=== PATIENT | female | born 1955 | race Caucasian/White ===

== ENCOUNTER → 2016-08-22 | Outpatient (CLI) | payer OTHER ==
[~2016-08-22] MED LIST: ALBINS/ INH; AMT50 PO; BACL10TA PO; CLB/200 PO; CRS/10 PO; DULO60CA44 PO; ERGO500037 PO; FURO40TA3 PO; INSDGI SC; IPRA1AER2 INH; LEVO50TA PO; LISI-794 PO; LORA-741 PO; METH-307 PO; NRN/300 PO; NVLGI SC; NXM/40 PO; OMEGCAP2 PO; OXYC20TA50 PO; SYMIN160 INH; ZOLP12.5 PO
[2016-08-22 16:57] LABS: THYROID STIMULATING HORMONE 6.31 uIu/ml (0.300-4.500)
== END | disposition home or self-care (01) ==
LOC: C.LAB1850 15:24
PROVIDERS: ATTEND Internal Medicine Endocrinology, Diabetes & Metabolism
DX: E05.00 Thyrotoxicosis with diffuse goiter without thyrotoxic crisis or storm (principal); E55.9 Vitamin D deficiency, unspecified; K43.2 Incisional hernia without obstruction or gangrene

== ENCOUNTER → 2016-09-16 | Outpatient (CLI) | payer OTHER ==
[2016-09-16 16:58] LABS: THYROID STIMULATING HORMONE 0.036 uIu/ml (0.300-4.500)
== END | disposition home or self-care (01) ==
LOC: C.LAB1850 15:24
PROVIDERS: ATTEND Internal Medicine Endocrinology, Diabetes & Metabolism
DX: E05.90 Thyrotoxicosis, unspecified without thyrotoxic crisis or storm (principal)

== ENCOUNTER → 2016-11-21 | Outpatient (CLI) | payer OTHER ==
[2016-11-21 17:18] LABS: BASO % 0.5 %; BASO ABS # 0.05 K/uL (0-0.2); COMPLETE YES; EOS % 0.6 %; HEMATOCRIT 35.8 % (37-47); IG% 0.4 %; LYMPH % 25.1 %; LYMPH ABS # 2.61 K/uL (1.2-3.4); MEAN CELL VOLUME 74.1 fL (80-100); MEAN CORPUSCULAR HEMOGLOBIN 23.6 pg (25-34); MEAN CORPUSCULAR HGB CONC 31.8 g/dl (32-36); MEAN PLATELET VOLUME 9.4 fL (7.4-10.4); MONO % 3.8 %; NEUT % 69.6 %; PLATELET COUNT 311 K/uL (130-400); RED BLOOD COUNT 4.83 M/uL (4.2-5.4); WHITE BLOOD COUNT 10.39 K/uL (4.8-10.8)
[2016-11-21 17:46] LABS: ALT/SGPT 12 U/L (12-78); AST/SGOT 4 U/L (15-37); BLOOD UREA NITROGEN 12 mg/dl (7-18); BUN/CREATININE RATIO 13.4 (10-20); CARBON DIOXIDE 29 mmol/L (21-32); CHLORIDE 95 mmol/L (98-107); CREATININE 0.92 mg/dl (0.60-1.20); GLUCOSE 299 mg/dl (70-99); MAGNESIUM 1.9 mg/dl (1.8-2.4); POTASSIUM 4.8 mmol/L (3.5-5.1); SODIUM 131 mmol/L (136-145)
[2016-11-21 17:57] LABS: ALB/GLOB RATIO 0.7 (0.9-2); ALKALINE PHOSPHATASE 149 U/L (45-117)
[2016-11-23 17:10] LABS: ALBUMIN 3.7 G/DL (3.8-4.8); TOTAL PROTEIN 7.1 G/DL (6.2-8.3)
--- NOTE | 2016-11-25 08:29 | CODING QUERY MEDICAL NECESSITY ---
SUPPORTING DIAGNOSIS NEEDED A supporting diagnosis is required for the test/procedure performed on this patient in order for us to be reimbursed by the patient's insurance. Please provide a supporting diagnosis for the following test/procedure listed below next to the test name along with your signature. *If there is no additional diagnosis for this patient that would support the following test/procedure please document that below next to the test/procedure. Test(s)/Procedure(s) that require a supporting diagnosis: * VITAMIN D 25-HYDROXY DIAGNOSIS: * VITAMIN B-12 LEVEL DIAGNOSIS: * DOS: 11/21/16 Provider Signature: Date: Thank you Regi [facility] Information Management Once completed, please kindly fax back to [phone] For questions please call [phone]
== END | disposition home or self-care (01) ==
LOC: C.LAB1850 16:02
PROVIDERS: ATTEND Psychiatry & Neurology Neurology
DX: E05.90 Thyrotoxicosis, unspecified without thyrotoxic crisis or storm (principal); R25.3 Fasciculation; G62.9 Polyneuropathy, unspecified

== ENCOUNTER → 2017-01-02 | Outpatient (CLI) | payer OTHER | END | disposition home or self-care (01) | LOC: C.LABSPEC 17:04 | PROVIDERS: ATTEND Orthopaedic Surgery | DX: G56.01 Carpal tunnel syndrome, right upper limb (principal) ==

== ENCOUNTER → 2017-02-06 | Outpatient (CLI) | payer OTHER ==
[2017-02-06 16:21] LABS: CHOLESTEROL 169 mg/dl (0-200); CHOLESTEROL/HDL RATIO 3.4; HDL CHOLESTEROL 49 mg/dl; THYROID STIMULATING HORMONE 0.055 uIu/ml (0.300-4.500); TRIGLYCERIDES 169 mg/dl (0-150); VERY LOW DENSITY LIPOPROT CALC 34 mg/dl
[2017-02-06 16:44] LABS: RATIO 317.9 mcg/mg (0-30.0)
[2017-02-07 06:18] LABS: ESTIMATED AVERAGE GLUCOSE 226 mg/dl; HA1C FLAG Normal (Normal)
== END | disposition home or self-care (01) ==
LOC: C.LAB1850 14:16
PROVIDERS: ATTEND Internal Medicine Endocrinology, Diabetes & Metabolism
DX: E05.00 Thyrotoxicosis with diffuse goiter without thyrotoxic crisis or storm (principal); Z86.39 Personal history of other endocrine, nutritional and metabolic disease; E78.5 Hyperlipidemia, unspecified; E55.9 Vitamin D deficiency, unspecified; R80.9 Proteinuria, unspecified; E10.21 Type 1 diabetes mellitus with diabetic nephropathy; E10.9 Type 1 diabetes mellitus without complications; E05.90 Thyrotoxicosis, unspecified without thyrotoxic crisis or storm; G56.03 Carpal tunnel syndrome, bilateral upper limbs

== ENCOUNTER → 2017-02-08 | Outpatient (CLI) | payer OTHER ==
--- NOTE | 2017-03-01 08:23 | CODING QUERY NO DIAGNOSIS ---
TREATMENT RENDERED WITHOUT A DIAGNOSIS To promote full compliance with coding requirements relating to patient care, physician participation is requested in all cases of pantry cook uncertainty. Please assist us with providing a diagnosis/symptom for the test(s) below: A diagnosis/symptom was not documented on your Order. A valid diagnosis/symptom is required to bill all insurances. Please remember that we are unable to code a diagnosis of rule out, probable, possible, questionable, or suspected. Tests that require a diagnosis: * AERO/ANAE CULTURE & GRAM STAIN DIAGNOSIS: Provider Signature: Date: Thank you Missy [place] [employer] Information Management Once completed, please kindly fax back to [phone] For questions please call [phone]
== END | disposition home or self-care (01) ==
LOC: C.LABSPEC 16:52
PROVIDERS: ATTEND Orthopaedic Surgery
DX: L08.9 Local infection of the skin and subcutaneous tissue, unspecified (principal)

== ENCOUNTER → 2017-04-03 | Outpatient (CLI) | payer OTHER ==
[2017-04-03 17:37] LABS: THYROID STIMULATING HORMONE 35.5 uIu/ml (0.300-4.500)
== END | disposition home or self-care (01) ==
LOC: C.LAB1850 15:37
PROVIDERS: ATTEND Internal Medicine Endocrinology, Diabetes & Metabolism
DX: E05.90 Thyrotoxicosis, unspecified without thyrotoxic crisis or storm (principal)

== ENCOUNTER → 2017-04-14 | Outpatient (CLI) | payer OTHER ==
[2017-04-14 17:09] LABS: THYROID STIMULATING HORMONE 0.195 uIu/ml (0.300-4.500)
== END | disposition home or self-care (01) ==
LOC: C.LAB1850 14:15
PROVIDERS: ATTEND Internal Medicine Endocrinology, Diabetes & Metabolism
DX: E05.00 Thyrotoxicosis with diffuse goiter without thyrotoxic crisis or storm (principal); E06.3 Autoimmune thyroiditis

== ENCOUNTER → 2017-05-24 | Outpatient (CLI) | payer OTHER ==
[2017-05-24 18:30] LABS: ALT/SGPT 13 U/L (12-78); AST/SGOT 7 U/L (15-37); BLOOD UREA NITROGEN 17 mg/dl (7-18); BUN/CREATININE RATIO 19.5 (10-20); CARBON DIOXIDE 24 mmol/L (21-32); CHLORIDE 98 mmol/L (98-107); CHOLESTEROL 142 mg/dl (0-200); CREATININE 0.88 mg/dl (0.60-1.20); GLUCOSE 219 mg/dl (70-99); PHOSPHORUS 4.4 mg/dl (2.5-4.9); POTASSIUM 4.5 mmol/L (3.5-5.1); SODIUM 132 mmol/L (136-145); TRIGLYCERIDES 189 mg/dl (0-150); URIC ACID 5.9 mg/dl (2.6-7.2); VERY LOW DENSITY LIPOPROT CALC 38 mg/dl
[2017-05-24 18:39] LABS: ALB/GLOB RATIO 0.8 (0.9-2); ALKALINE PHOSPHATASE 127 U/L (45-117); CHOLESTEROL/HDL RATIO 2.4; HDL CHOLESTEROL 58 mg/dl; LDL CHOLESTEROL CALCULATED 46 mg/dl
== END | disposition home or self-care (01) ==
LOC: C.LAB1850 15:15
PROVIDERS: ATTEND Internal Medicine Endocrinology, Diabetes & Metabolism
DX: M62.831 Muscle spasm of calf (principal)

== ENCOUNTER → 2017-09-01 | Outpatient (CLI) | payer OTHER ==
[2017-09-02 06:55] LABS: HEMOGLOBIN A1C 8.8 % (4.5-5.6)
== END | disposition home or self-care (01) ==
LOC: C.LAB1850 14:37
PROVIDERS: ATTEND Internal Medicine Endocrinology, Diabetes & Metabolism
DX: E55.9 Vitamin D deficiency, unspecified (principal); E10.8 Type 1 diabetes mellitus with unspecified complications

== ENCOUNTER → 2017-11-27 | Outpatient (CLI) | payer OTHER ==
[2017-11-28 05:58] LABS: HEMOGLOBIN A1C 8.7 % (4.5-5.6)
== END | disposition home or self-care (01) ==
LOC: C.LAB1850 13:17
PROVIDERS: ATTEND Internal Medicine Endocrinology, Diabetes & Metabolism
DX: E05.90 Thyrotoxicosis, unspecified without thyrotoxic crisis or storm (principal); E10.9 Type 1 diabetes mellitus without complications; E55.9 Vitamin D deficiency, unspecified

== ENCOUNTER → 2017-11-28 | Outpatient (CLI) | payer OTHER ==
--- NOTE | 2017-11-29 06:27 | SPLIT NIGHT TECHNICIAN REPORT ---
[facility] Split Night Polysomnogram - Fishing Manager Report Study date: 11/28/2017 Referring Physician: Dr. Juli Ingram M.D. Name: LEORA TRACY Fishing Manager: Shraddha Lynn [facility]. Date of : 1955 Height: 62 years, Height 5' 2.25" Sex: Female Weight: 179 lbs Age: 62 Neck Circum: 16.5 in BMI: Medications: 32.47 HYDROCHLOROTHIAZIDE 12.5 MG, OXYCODONE 20 MG, DIAZEPAM 5 MG, PANTOPRAZOLE 40 MG, IPRTROPIUM-ALBUTEROL 20-100 MCG/ACT, SYMBICORT 160-4.5 MCG/ACT, FUROSEMIDE 40 MG, AMITRIPTYLINE 50 MG, GABAPENTIN 300 AND 100 MG, DULOXETINE 60 MG, NOVOLOG 70-30 UNIT/ML, PROVENTIL 2.5 MG/3 ML, LISINOPIRL 20 MG, CLOBETASOL PROPIONATE 0.05% OINT, CRESTOR 10 MG, VIT D 10162 UNIT, LIDEX 0.05% EX CREAM, ASPIRIN 81 MG Patient History 62 yr-old female here for a baseline/modified split study (CPAP to be introduced if AHI exceeds 15). She has a history of COPD, anxiety, HTN, snoring, witnessed apneas, and daytime sleepiness. Her [place] scale is 18. The test was started on room air. ETCO2 testing is included in this study. Room 3 Parameters Monitored NPSG: E1-M2, E2-M1, Fp1-M2, Fp2-M1, F3-M2, F4-M2, F4-M1, C3-M2, C4-M2, C4-M1, O1-M2, O2-M2, O2-M1, T3-M2, T4-M1, P3-M2, P4-M1, CHIN1, CHIN2, HR, EKG, Legs, PFLOW, SNOR, FLOW, CFLOW, Tidal Volume, THOR, ABDO, SpO2, PLTH, CPRESS, ETCO2 Wave, ETCO2, pH SLEEP SUMMARY DATA DIAGNOSTIC TREATMENT Lights Out: 10:53:38 PM 1:48:38 AM Lights On: 1:24:38 AM 5:29:08 AM Total Recording Time (TRT): 151.0 min. 220.5 min. Total Sleep Time (TST): 125.5 min. 217.0 min. NREM Time: 125.5 min. 177.5 min. REM Time: 0.0 min. 39.5 min. Sleep Period Time (SPT): 135.0 min. 219.5 min. Sleep Efficiency (SE): 83 % 98 % Sleep Latency: 16.0 min. 1.0 min. Arousal Index: 12.4 2.8 PAP Treatment Levels: 4, 6, 7, 9, 10 * Optimal Pressure(s) SLEEP STAGING DATA DIAGNOSTIC TREATMENT Duration (min) TST % Duration (min) TST % Stage Wake: 25.5 min. -- 3.5 min. -- WASO: 9.5 min. -- 2.5 min. -- NREM: 125.5 min. 100 % 177.5 min. 82 % Stage N1: 13.5 min. 11 % 6.0 min. 3 % Stage N2: 108.0 min. 86 % 131.0 min. 60 % Stage N3: 4.0 min. 3 % 40.5 min. 19 % REM: 0.0 min. 0 % 39.5 min. 18 % POSITIONAL DATA Event Count Index Event Count Index Supine: 55 26 49 13.5 Supine NREM: 55 26.3 37 12.5 Supine REM: N/A N/A 12 18 Non-Supine: N/A N/A N/A N/A Non-Supine NREM: N/A N/A N/A N/A Non-Supine REM: N/A N/A N/A N/A AROUSAL SUMMARY DATA: Event Count Index Event Count Index Apnea Arousals: 0 0.5 0 4.1 Hypopnea Arousals: 5 2.4 1 0.3 Snore Arousals: 2 1.0 0 0.0 PLM Arousals: 0 0.0 1 0.3 Non-Specific Arousals: 20 9.6 7 1.9 Total Arousals: 26 12.4 10 2.8 MYOCLONUS (PLM) Event Count Index Event Count Index PLM: 0 0.0 61 16.9 PLM AROUSAL: 0 0.0 1 0.3 PLM W/O AROUSAL 0 0.0 60 16.6 PLM W/RESP EVENT 0 0.0 0 0.0 MYOCLONUS (PLM) Event Count Index Event Count Index LM: 0 4.8 33 9.1 LM AROUSAL: 0 0.0 1 0.3 LM W/O AROUSAL LM W/RESP EVENT LM NON SPECIFIC 9 4.3 87 24.1 HEART RATE DATA DIAGNOSTIC TREATMENT Sleep (bpm): 86 80 REM (bpm): N/A 87 NREM (bpm): 83 86 Tachycardia Count: 0 0 Tachycardia Duration: 0.00 0 Bradycardia Count: 0 0 Bradycardia Duration: 0.00 0 DIAGNOSTIC PORTION TREATMENT PORTION RESPIRATORY DATA Event Count Index Event Count Index AHI: -- 26.3 -- 13.5 RDI: -- 26.3 -- 14 Obstructive Apnea: 1 0.5 11 3.0 Central Apnea: 0 0.0 4 1.1 Mixed Apnea: 0 0.0 0 0.0 Hypopnea: 54 25.8 34 9.4 RERA: 0 0.0 0 0.0 Total Apneas: 1 0.5 15 4.1 RESPIRATORY DATA REM NREM SLEEP REM NREM SLEEP Supine Position: Obstructive Apneas: N/A 1 1 0 11 11 Central Apneas: N/A 0 0 0 4 4 Mixed Apneas: N/A 0 0 0 0 0 Hypopneas: N/A 54 54 12 22 34 RERA N/A 0 0 0 0 0 Total Supine Events: N/A 55 55 12 37 49 Supine AHI: N/A 26.3 26 18 12.5 13.5 Supine RDI: N/A 26.3 26.3 18.2 12.5 13.5 REM NREM SLEEP REM NREM SLEEP Non-Supine Position: Obstructive Apneas: N/A N/A N/A N/A N/A N/A Central Apneas: N/A N/A N/A N/A N/A N/A Mixed Apneas: N/A N/A N/A N/A N/A N/A Hypopneas: N/A N/A N/A N/A N/A N/A RERA N/A N/A N/A N/A N/A N/A Total Supine Events: N/A N/A N/A N/A N/A N/A Supine AHI: N/A N/A N/A N/A N/A N/A Supine RDI: N/A N/A N/A N/A N/A N/A OXYGEN DESTAURATION DATA: Event Count Index Event Count Index REM Desaturations: N/A N/A 16 24.3 NREM Desaturations: 52 24.9 49 16.6 SNORE DATA DIAGNOSTIC TREATMENT Snore Time: 2.2 1:49:38 AM Snore TST%: 1 0 Snore Arousal Count: 2 0 Snore Arousal Index: 1.0 0.0 Desaturation Event Summary: Minimum %SpO2 Event Count Mean/Min/Max Duration(sec.) Desaturation Index % Time In Bed > 90 8 19.6 / 13.3 / 48.8 201.8 0.6 86 - 90 84 21.2 / 6.8 / 58.8 32.1 42.3 81 - 85 72 20.7 / 6.0 / 50.8 23.4 49.8 76 - 80 6 16.5 / 7.0 / 38.8 19.5 5.0 71 - 75 0 N/A 0.0 1.9 66 - 70 0 N/A 0.0 0.4 61 - 65 0 N/A 0.0 0.0 56 - 60 0 N/A 0.0 0.0 51 - 55 0 N/A 0.0 0.0 < 50 0 N/A 0.0 0.0 OXYGEN SATURATION DATA DIAGNOSTIC TREATMENT SpO2 Mean Sleep: 83 % 86 % SpO2 Mean REM: N/A % 87 % SpO2 Mean NREM: 83 % 86 % SpO2 Minimum Sleep: 67 % 72 % SpO2 Minimum REM: N/A % 80 % SpO2 Minimum NREM: 67 % 72 % Time Below 90% (TST): 124.8 207.7 Time Below 88% (TST): 122.8 153.7 Total REM NREM Awake <50% 0.0 min. 0.0 min. 0.0 min. 0.0 min. 51 - 60% 0.0 min. 0.0 min. 0.0 min. 0.0 min. 61 - 70% 1.3 min. 0.0 min. 1.0 min. 0.3 min. 71 - 80% 25.6 min. 0.1 min. 23.0 min. 2.6 min. 81 - 90% 341.1 min. 39.0 min. 276.8 min. 25.4 min. 91 - 100% 2.4 min. 0.4 min. 1.6 min. 0.3 min. Average 85 87 84 84 Minimum SpO2 67 80 67 68 Desaturation Event Index 20.8 24.3 20.0 26.9 # Desat. Events below 89% 129 16 101 12 Time(%) with Saturation below 89% 91.8 8.8 75.6 7.5 Time(min.) with Saturation below 89% 340.0 32.5 279.9 27.7 Recording Fishing Manager Comments: Ms. Tracy slept in the supine position propped up on four pillows. No cardiac arrhythmias were noted. PLMs were noted. No bruxism noted. Snoring was noted and scored as a 2 on a scale of 1 through 5. (0=no snoring, 5=snoring loud enough to be heard through a closed door or down the [address] way). At 1:40 am, met specific Split-Night criteria during the diagnostic portion of this study. CPAP was initiated at +4 CMH2O and up-titrated to a level of +10 CMH2O, Cflex 3. An AirFit F10 full face mask size medium from [employer] was used during titration. She awoke to use the restroom one time during the night. Ms. Tracy stated that she slept ok. The final report will be interpreted and signed by a sleep physician. The completed physician report will then be placed in the patient medical record. Therapy Event: Therapy (cm H20) 0 4 6 7 9 10 Total Time at Pressure (min.) 151.0 22.9 32.2 65.2 74.4 25.8 TST at Pressure (min.) 125.5 21.9 32.2 63.7 73.4 25.8 # Periods 1 1 1 1 1 1 Sleep Onset (min.) 16.0 1.0 0.0 0.0 0.0 0.0 REM Onset (min.) N/A N/A N/A 25.4 0.0 N/A Sleep Efficiency % 83 95 100 97 98 100 Wakefulness (%) 16.9 4.4 0.0 2.3 1.3 0.0 Wakefulness (min.) 25.5 1.0 0.0 1.5 1.0 0.0 NREM 1 (%) 8.9 17.4 0.0 1.5 0.7 1.9 NREM 1 (min.) 13.5 4.0 0.0 1.0 0.5 0.5 NREM 2 (%) 71.5 78.2 100.0 39.7 58.4 44.7 NREM 2 (min.) 108.0 17.9 32.2 25.9 43.5 11.5 NREM 3 (%) 2.6 0.0 0.0 3.1 33.2 53.4 NREM 3 (min.) 4.0 0.0 0.0 2.0 24.7 13.8 REM (%) 0.0 0.0 0.0 53.4 6.3 0.0 REM (min.) 0.0 0.0 0.0 34.8 4.7 0.0 # Arousals 26 0 0 8 1 1 Arousal Index 12.4 0.0 0.0 7.5 0.8 2.3 # Snore 81 2 0 9 13 5 Snore Index 38.7 5.5 0.0 8.5 10.6 11.6 AHI 26.3 5.5 5.6 22.6 15.5 2.3 AHI Supine 26.3 5.5 5.6 22.6 15.5 2.3 AHI Non-Supine N/A N/A N/A N/A N/A N/A NREM AHI 26.3 5.5 5.6 25.0 16.6 2.3 REM AHI N/A N/A N/A 20.7 0.0 N/A RDI 26.3 5.5 5.6 22.6 15.5 2.3 # Obstructive 1 0 1 5 4 1 # Central Ap 0 0 0 0 4 0 # Mixed 0 0 0 0 0 0 # Hypopneas 54 2 2 19 11 0 RERAS 0 0 0 0 0 0 Total Respiratory Events 55 2 3 24 19 1 Time Below SpO2 89.00% (min.) 123.9 21.9 32.2 58.5 53.5 22.2 Mean NREM SpO2 (%) 83 83 83 85 88 87 Mean REM SpO2 (%) N/A N/A N/A 87 89 N/A Mean Sleep SpO2 (%) 83 83 83 86 88 87 Min NREM SpO2 (%) 67 75 72 76 76 84 Min REM SpO2 (%) N/A N/A N/A 80 86 N/A Position Supine (min.) 125.5 21.9 32.2 63.7 73.4 25.8 Position Non-supine (min.) 0.0 0.0 0.0 0.0 0.0 0.0 LM Index Sleep 4.8 19.1 0.0 44.3 28.6 11.6 LM Index NREM 4.8 19.1 0.0 35.4 19.2 11.6 LM Index REM N/A N/A N/A 51.7 166.3 N/A Mean Heart Rate (bpm) 86 82 79 82 78 77 Min Heart Rate (bpm) 81 76 76 78 74 74 CPAP REPORT Therapy Detail Time / Page # Comment CPAP 4 cm H2O Full Face Mask Flex Pressure Relief Humidifier on 1:45:24 AM / pg. 572 SHE HAS OVER 2 HOURS OF SLEEP AND HER AHI IS ABOVE 15 (PER THE DOCTOR'S ORDER) CPAP 6 cm H2O Full Face Mask Flex Pressure Relief Humidifier on 2:11:34 AM / pg. 624 INCREASED FOR HYPOPNEAS CPAP 7 cm H2O Full Face Mask Flex Pressure Relief Humidifier on 2:43:47 AM / pg. 689 INCREASED FOR SOME HYPOPNEAS AND AN APNEA CPAP 9 cm H2O Full Face Mask Flex Pressure Relief Humidifier on 3:48:57 AM / pg. 819 INCREASED FOR HYPOPNEAS IN REM CPAP 10 cm H2O Full Face Mask Flex Pressure Relief Humidifier on 5:03:23 AM / pg. 968 INCREASED FOR APNEAS AND HYPOPNEAS
--- NOTE | 2017-12-01 07:57 | POLYSOMNOGRAPH REPORT ---
CLINICAL DATA: A 62-year-old female with BMI of 32.[address] Ingram for a modified split night study with a history of snoring, witnessed apnea along with daytime sleepiness. Her [place] sleepiness score was 18/24. This was a split night study. SLEEP ARCHITECTURE: For the diagnostic portion of the study, sleep period time was 135 minutes. Total sleep time was 125.5 minutes, all non-REM sleep. Sleep latency was 16 minutes. Sleep efficiency was 83%. Sleep consisted of stage N1 11%, stage N2 86%, and stage N3 3%. For the treatment portion of the study, sleep period time was 219.5 minutes. Total sleep time was 217 minutes divided between 177.5 minutes of non-REM sleep and 39.5 minutes of REM sleep. Sleep latency was 1 minute. Sleep efficiency was 98%. Sleep consisted of stage N1 3%, stage N2 60%, stage N3 19%, and REM 18%. AROUSAL DATA: Prior to treatment, 26 arousals were recorded for an index of 12.4 per hour. During treatment, 10 arousals were recorded for an index of 2.8 per hour. PLM DATA: Prior to treatment, 9 limb movements during sleep were noted for an index of 4.3 per hour. During treatment, 87 limb movements during sleep were noted for an index of 24.1 per hour. EKG: Heart rates ranged from 80-87 beats per minute. No arrhythmias were noted. RESPIRATORY DATA: Moderate sleep apnea was documented prior to treatment with a diagnostic AHI of 26.3. There was 1 obstructive apneic episode and 54 hypopneic episodes. The average AHI during treatment was 13.5. There were 11 obstructive and 4 central apneic episodes. There were 34 hypopneic episodes. OXIMETRY DATA: Nocturnal hypoxemia was seen prior to treatment. Oxygen kurt was 67% during non-REM sleep prior to treatment. Mean saturation with treatment was 86%. CALENDER TENDER'S COMMENTS AND TREATMENT SUMMARY: Patient slept supine propped up on 4 pillows. Snoring was mild, rated 2 on a scale of 1-5. At 1:40 a.m., she met split night criteria. She used a [employer] AirFit F10 full face mask, size medium. She was titrated up to 10 cm of water pressure, C-Flex setting 3. At her final pressure setting, she had an AHI of 2.3 with improvement in her hypoxemia. IMPRESSION: Moderate sleep apnea/hypopnea with the diagnostic AHI of 26.3 with nocturnal hypoxemia corrected with CPAP 10 cm water pressure with the above-noted interface. She did have improvement in her oxygenation by the end of the study. RECOMMENDATIONS: Patient should be started on CPAP at 10 cm water pressure with a C-Flex 3 with an AirFit F10 full face mask, size medium from [employer]. She should be seen back in followup within 90 days to document efficiency and compliance. After she has been on CPAP and stable, overnight pulse oximetry could be considered to monitor her O2 saturations throughout a total of 8-hour period with CPAP. Clinical correlation is needed. REYNA
== END | disposition home or self-care (01) ==
LOC: C.NEUR 21:00
PROVIDERS: ATTEND Internal Medicine
DX: G47.33 Obstructive sleep apnea (adult) (pediatric) (principal)

== ENCOUNTER → 2017-12-01 | Outpatient (CLI) | payer OTHER ==
--- NOTE | 2017-12-01 17:37 | DIAGNOSTIC IMAGING REPORT ---
CHEST 2 VIEWS ROUTINE CLINICAL HISTORY: 62 years-old Female presenting with J42 Chronic [id number]. TECHNIQUE: PA and lateral views of the chest were obtained. COMPARISON: 11/19/2014. FINDINGS: The patient is BEATRICE rotated. Atherosclerosis of the aortic arch. Cardiac silhouette mildly enlarged, unchanged. Mild pulmonary vascular prominence. No focal opacity. Blunting of the right costophrenic angle. No large effusion or pneumothorax. Degenerative changes of the thoracic spine. IMPRESSION: 1. Cardiomegaly with mild pulmonary vascular prominence suggesting mild volume overload. Otherwise no acute cardiopulmonary disease. Electronically signed by: Alex Arriaza M.D. 12/01/2017 5:36 PM Dictated Date/Time: 12/01/2017 5:35 PM
== END | disposition home or self-care (01) ==
LOC: C.RAD1850 16:41
PROVIDERS: ATTEND Internal Medicine Pulmonary Disease
DX: J42 Unspecified chronic bronchitis (principal); I51.7 Cardiomegaly

== ENCOUNTER → 2018-03-09 | Outpatient (CLI) | payer OTHER | END | disposition home or self-care (01) | LOC: C.LAB1850 11:53 | PROVIDERS: ATTEND Internal Medicine Endocrinology, Diabetes & Metabolism | DX: E05.90 Thyrotoxicosis, unspecified without thyrotoxic crisis or storm (principal) ==

== ENCOUNTER 2018-04-05 14:56 | Emergency (ER) | payer OTHER ==
[~2018-04-05] VITALS: Ht 160 cm; Wt 80.7 kg
[2018-04-05 15:02] VITALS: TEMP 37; Ht 160 cm; Wt 80.7 kg
--- NOTE | 2018-04-05 16:00 | DIAGNOSTIC IMAGING REPORT ---
CT OF THE HEAD WITHOUT CONTRAST CLINICAL HISTORY: Fall with head injury. COMPARISON STUDY: No previous studies for comparison. CT DOSE: 537.48 mGy.cm TECHNIQUE: Helical axial images of the head were obtained without IV contrast. Automated exposure control was utilized for the study. A dose lowering technique was utilized adhering to the principles of ALARA. FINDINGS: No acute intracranial hemorrhage, midline shift or mass effect is present. 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 White matter hypodensity suggests small vessel disease. There are no findings to suggest acute dural sinus thrombosis or acute territorial infarct. There is no calvarial fracture. A large nasal septal defect is present. Mastoid air cells are clear. IMPRESSION: 1. No acute intracranial findings. 2. No calvarial fracture. 3. 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 4. Large nasal septal defect. Electronically signed by: Junior Andres M.D. 04/05/2018 3:59 PM Dictated Date/Time: 04/05/2018 3:55 PM
--- NOTE | 2018-04-05 16:11 | EMERGENCY ROOM VISIT NOTE ---
ED Visit Note First contact with patient: 15:13 I have seen and examined this patient with Melba Paez and generally agree with the treatment plan as discussed.
--- NOTE | 2018-04-05 16:14 | EMERGENCY ROOM VISIT NOTE ---
History First contact with patient: 15:13 Chief Complaint: HEAD INJURY (MINOR) Stated Complaint: HEAD INJURY, REFERRED BY DR. CAMPUZANO History of Present Illness The patient is a 63 year old female who presents to the Emergency Room with complaints of head injury. The patient states that 2 days ago she got her foot caught in the handle of a bag and fell to the side striking her head on the edge of a door jam and then fell the other directed and striking the opposite side of her head on the floor. The patient denies any loss of consciousness. The patient states she has some blurred vision in the left eye which is increased. She also has some ringing in the left the patient has an ongoing history of dizziness for 1 year. She states that she falls frequently but this was different since she got her foot caught and the handle of the bag. She was seen by her family doctor yesterday and she was told to come over to get a CAT scan at that time but on the way they had problems with their vehicle and she was unable to get here. Her family doctor called her this morning to see why she did not come to the emergency room yesterday and she told them why and she was instructed to come today. The patient denies any chest pain or shortness of breath. The patient is on blood pressure medicine. She is not on any blood thinners. Review of Systems 10 system review was performed and was negative unless stated otherwise history of present illness. Past Medical/Surgical History Medical Problems: (1) Asthma, Unspecified (2) Cardiac Dysrhythmia Nos (3) Esophageal Reflux (4) Lumbar Disc Displacement (5) Pleural Effusion Nos Family History Cancer Diabetes mellitus Heart disease Hypertension Social History Smoking Status: Current Every Day Smoker Drug Use: none Marital Status: Housing Status: lives with family Occupation Status: retired Current/Historical Medications Scheduled Amitriptyline Hcl (Elavil), 50 MG PO HS Baclofen (Lioresal), 10 MG PO TID Budesonide/Formoterol Fumarate (Symbicort 160/4.5 Inhaler), 2 PUFFS INH BID Celecoxib (CeleBREX), 200 MG PO BID Duloxetine Hcl (Cymbalta), 120 MG PO QAM Ergocalciferol (Vitamin D 82606 Unit), 50,000 UNIT PO WK Esomeprazole Magnesium (Nexium), 40 MG PO BID Insulin Aspart (Novolog), UNITS SC BID Insulin Glargine (Lantus), 30 UNITS SC HS Ipratropium-Albuterol (Combivent Respimat), 1 PUFF INH QID Levothyroxine Sodium (Synthroid), 50 MCG PO 6XWK Lisinopril (Zestril), 40 MG PO QAM Methocarbamol (Robaxin), 750 MG PO TID [place]-3 Fatty Acids (Fish Oil), 1 CAP PO HS Oxycodone Hcl (Oxycontin), 20 MG PO Q6H Rosuvastatin Calcium (Crestor), 10 MG PO HS Scheduled PRN Albuterol Sulf (Proventil 0.083% 2.5MG/3ML), 2.5 MG INH Q4-6HRS PRN for Cough/ Wheeze Furosemide (Lasix), 40 MG PO DAILY PRN for Edema Gabapentin (Neurontin), 300-600 MG PO HS PRN for Pain Lorazepam (Ativan), 0.5 MG PO TID PRN for Panic Attack Zolpidem Tartrate (Ambien Cr), 12.5 MG PO HS PRN for Sleep Physical Exam Vital Signs Date Time Temp Pulse Resp B/P (MAP) Pulse Ox O2 Delivery O2 Flow Rate FiO2 1618 15:02 37.0 86 17 92/56 94 Room Air Physical Exam GENERAL: 63-year-old white female appears in no acute distress. MENTAL Status: Alert and oriented 3. HEAD: Atraumatic, nontender to palpation. EYES: PERRLA. EOMs intact. Funduscopic exam unremarkable. EARS: Canals clear. TMs without fluid level noted. NECK: Supple, no lymphadenopathy noted. No carotid bruits noted. LUNGS: Clear auscultation without wheezes rales or rhonchi. CARDIAC: Regular rate and rhythm with 2 out of 6 murmur noted at the left sternal border.. Pulses is full and equal throughout. NEURO:Cranial nerves two through 12 intact. Cerebellar function intact with [id number]. Fine motor intact with alternating finger motions. Medical Decision & Procedures ER Provider Diagnostic Interpretation: CT OF THE HEAD WITHOUT CONTRAST CLINICAL HISTORY: Fall with head injury. COMPARISON STUDY: No previous studies for comparison. CT DOSE: 537.48 mGy.cm TECHNIQUE: Helical axial images of the head were obtained without IV contrast. Automated exposure control was utilized for the study. A dose lowering technique was utilized adhering to the principles of ALARA. FINDINGS: No acute intracranial hemorrhage, midline shift or mass effect is present. 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 White matter hypodensity suggests small vessel disease. There are no findings to suggest acute dural sinus thrombosis or acute territorial infarct. There is no calvarial fracture. A large nasal septal defect is present. Mastoid air cells are clear. IMPRESSION: 1. No acute intracranial findings. 2. No calvarial fracture. 3. 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 4. Large nasal septal defect. Electronically signed by: Junior Andres M.D. 04/05/2018 3:59 PM ED Course The patient was evaluated. Patient's EMR medication list were reviewed. CT the head was ordered interpreted by the radiologist as above without any acute findings. Patient was informed of all findings on the CAT scan. I did inform the patient that there was some old infarcts noted on her CAT scan. The patient was independently evaluated by Dr. Myers who agrees with treatment plan. The patient was discharged home in stable condition. Medical Decision Differential diagnosis include intracranial bleed, subarachnoid hemorrhage, head contusion [place] Drug Monitoring Program Search Results: patient reviewed within database Head Trauma GCS Score: 15 Medication Reconcilliation Current Medication List: was personally reviewed by me Blood Pressure Screening Patient's blood pressure: Low blood pressure Blood pressure disposition: Referred to PCP Impression Primary Impression: Closed head injury Additional Impression: Nonspecific low blood pressure reading Departure Information Dispostion Home / Self-Care Condition GOOD Referrals Alex Campuzano M.D. (PCP) Forms HOME CARE DOCUMENTATION FORM, IMPORTANT VISIT INFORMATION Patient Instructions ED Head Injury Closed, My [facility] Additional Instructions Tylenol as needed for headache or pain. Monitor your blood pressure readings at home and document date and time. Follow-up with your PCP in 1 week for reevaluation or earlier if symptoms worsen. Problem Qualifiers Primary Impression: Closed head injury Encounter type: initial encounter Qualified Codes: S09.90XA - Unspecified injury of head, initial encounter
[2018-04-05 16:29] VITALS: BP 98/61; PULSE 59; O2SAT 94
== END 2018-04-05 16:20 | disposition home or self-care (01) ==
LOC: C.EDB 14:57 → C.EDD 16:20
DX: S09.8XXA Other specified injuries of head, initial encounter (principal); W18.09XA Striking against other object with subsequent fall, initial encounter; J45.909 Unspecified asthma, uncomplicated; I49.9 Cardiac arrhythmia, unspecified; K21.9 Gastro-esophageal reflux disease without esophagitis; M51.26 Other intervertebral disc displacement, lumbar region; Z79.4 Long term (current) use of insulin; Z79.899 Other long term (current) drug therapy; F17.200 Nicotine dependence, unspecified, uncomplicated

== ENCOUNTER → 2018-04-06 | Outpatient (CLI) | payer OTHER ==
[2018-04-06 15:39] LABS: ALBUMIN 3.3 gm/dl (3.4-5.0); ALKALINE PHOSPHATASE 148 U/L (45-117); ALT/SGPT 13 U/L (12-78); AST/SGOT 10 U/L (15-37); BLOOD UREA NITROGEN 25 mg/dl (7-18); CALCIUM 8.4 mg/dl (8.5-10.1); CARBON DIOXIDE 26 mmol/L (21-32); CHOLESTEROL 116 mg/dl (0-200); CREATININE 1.33 mg/dl (0.60-1.20); GLUCOSE 131 mg/dl (70-99); LDL CHOLESTEROL CALCULATED 37 mg/dl; SODIUM 126 mmol/L (136-145); TOTAL PROTEIN 7.5 gm/dl (6.4-8.2)
== END | disposition home or self-care (01) ==
LOC: C.LAB1850 14:11
PROVIDERS: ATTEND Internal Medicine Endocrinology, Diabetes & Metabolism
DX: E55.9 Vitamin D deficiency, unspecified (principal); R80.9 Proteinuria, unspecified; E05.90 Thyrotoxicosis, unspecified without thyrotoxic crisis or storm; E10.8 Type 1 diabetes mellitus with unspecified complications

== ENCOUNTER 2020-09-19 16:43 | Inpatient (IN) ==
--- NOTE | 2020-09-19 16:52 | Emergency Department Note ---
Impression & Plan CHF (congestive heart failure), Acute on chronic respiratory failure with hypoxemia ED Provider Note NAME: LEORA WARE AGE: 65 SEX: F : 1955 ARRIVES VIA: Ambulance INFORMANT: Patient, ED PROVIDER(S): Ricardo Hunter MD Chief Complaint: Lower extremity weakness HPI: Patient does present for lower extremity weakness since the patient has had any recurrence of falls and the patient states she has had decreased ambulation over the last 3 to 4 days. When EMS did arrive the patient was not wearing her oxygen and satting in the 60s. The patient does have chronic shortness of breath and does continue to use tobacco but is noncompliant with her CPAP as well as oxygen use at home. The patient has follow-up with Dr. Boredn with pulmonology. Patient follows Dr. Meza for primary care. The patient denies any chest pains. Patient does not complain of any lower extremity pain. Patient denies fevers or chills. The patient symptoms have gotten progressively worse and are not improving per patient. They have been constant. ROS: See HPI for pertinent positives and negatives. A total of 10 systems were reviewed and otherwise negative. Past medical history: See below Surgical history: See below Social history: See below Physical Exam: GENERAL: Chronically ill in appearance, wearing glasses and a mask. EYE EXAM: Normal conjunctiva. PERRL, no anisocoria and EOM's grossly intact w/o pain. NECK: Supple, no nuchal rigidity, no adenopathy, non-tender. No signs of meningismus. LUNGS: Manage breath sounds bilateral bases with crackles. Normal chest wall mechanics. HEART: NSR, no MRG. ABDOMEN: Abdomen soft, non-tender, normo-active bowel sounds, no masses, no rebound or guarding. BACK: No CVA TTP. SKIN: Skin thickening nowhere over the distal portions of the lower extremities. UPPER EXTREMITIES: Upper extremities are grossly normal. LOWER EXTREMITIES: Grossly normal, 2+ bilateral lower extremity edema. NEURO EXAM: A&O x3, cranial nerves II-XII grossly intact, normal speech, moves all 4 extremities on command w/o issue. Differential diagnoses: Infection, dehydration, metabolic abnormality, hypo/hyperglycemia, electrolyte disturbance, anemia, hypoxia, cardiac sources, intracerebral event, toxicologic, neurologic, as well as other pathologies. Course: Patient was seen and evaluated the bedside. Full history physical exam was performed. EKG: Indication: Shortness of breath Normal sinus rhythm, rate of 91, normal intervals, right axis deviation, T wave inversion in V2. T wave inversion in V2 is new from comparison EKG October 22, 2018. Imaging Studies: Radiology results as stated below per my review in the radiologist's interpretation: XR chest 1V portable CLINICAL HISTORY: weakness COMPARISON STUDY: 10/22/2018 FINDINGS: The heart remains enlarged. There is continued evidence of pulmonary vascular congestion. There are mild airspace opacities likely representing focal edema although an infectious/inflammatory processes could appear similar[ IMPRESSION: Cardiomegaly and radiographic evidence of congestive failure/fluid overload. Minor airspace opacities most pronounced at the lung bases likely representing focal edema although an infectious/inflammatory process could appear similar ACT 112: Negative or not required by law. Electronically signed by: Abdoulaye Madrid M.D. 09/19/2020 6:31 PM Dictated: 09/19/201829 Transcribed: 09/19/201829 Cardiac monitoring: An order was placed for continuous cardiac monitoring. The monitor shows a rate of 88 with sinus rhythm. MDM: Patient did present with concern for shortness of breath lower extremity weakness. Patient was placed on BiPAP after being in about evaluated given her noncompliance as well as her increasing oxygen requirement. The patient does not have any sensory deficits back pain and has no lower extremity deficits on exam. This likely due to chronic noncompliance and potentially inability to tolerate physical activity as she is not using her oxygen or CPAP at home. The patient may have a concomitant element of heart failure given elevated BNP diminished breath sounds and pulmonary edema seen on chest x-ray. Patient's blood work showed a normal white count H&H and platelet count. VBG does show chronic CO2 retention with virtually normal VBG pH is 7.3. Bicarb is 34. Magnesium and calcium are low 1.4 and 8.4. TSH is normal. Covid and flu negative. RSV negative. Lasix ordered. EKG does show new T wave inversion. This could be related to demand a troponin was added. Troponin undetectable. Patient never complained of any chest pains. I did speak to the on-call hospitalist Dr. Troy and the patient was admitted to the medicine service. Critical Care: I have personally spent 52 minutes of critical care time in direct management of this patient. This includes bedside care, interpretation of diagnostic studies, and testing, discussion with consultants, patient, and family members, and other require inpatient management activities. This 52 minutes is in excess of all separately billable procedures. Past Med/Surg History Medical History Abdominal pain Bowel perforation Chronic bronchitis with acute exacerbation Diabetes Encounter for incision and drainage procedure Esophageal reflux Incarcerated ventral hernia Infected hernioplasty mesh Infected prosthetic mesh of abdominal wall Perforated nasal septum Personal history of nicotine dependence Pleural effusion Pulmonary emphysema Restless legs syndrome Restrictive lung disease Tinea pedis Vitamin D deficiency Surgical History H/O umbilical hernia repair H/O: hysterectomy History of carpal tunnel release S/P anal fissurectomy Family History Father Hypertension Diabetes Other Gallbladder disease Heart disease Lung disease Social History Smoking Status: Current every day smoker Tobacco Type: Cigarettes packs per day: 1; Years Smoked: 45; Cigarettes Per Day: 20; Do You Dip or Chew Tobacco: No; Tobacco Cessation Education Requested by Patient: No Hx Alcohol Use: No Hx Substance Use: No Preferred Language: Maltese Communication Ability: Effective Resizer Operator Required: No Beliefs That Will Affect Care: None marital status: Current Living Situation: Spouse current occupational status: disabled Other Information That Helps Us Care for You: No Feels Safe at Home: Yes Safety Concerns: Feels Safe At This Time Assistive Devices: BiPap and Oxygen - Continuous Allergies Allergies Allergy/AdvReac Type Severity Reaction Status Date / Time lamotrigine Allergy Mild RASH Verified 09/19/20 19:11 Sulfa (Sulfonamide Allergy Unknown Verified 09/19/20 19:11 Antibiotics) Tetracyclines Allergy Unknown Verified 09/19/20 19:11 mold Allergy Verified 09/19/20 19:11 topiramate [From Topamax] Allergy Verified 09/19/20 19:11 morphine AdvReac Intermediate SEVERE Verified 09/19/20 19:11 NAUSEA Home Meds Home Medications Medication Instructions Recorded Confirmed rosuvastatin 10 mg PO DAILY 10/22/18 09/19/20 glucagon HCl 1 mg/mL solution for 1 mg SUBCUT DIRECTED PRN #1 ea 07/14/19 09/19/20 injection omeprazole 20 mg tablet,delayed 20 mg PO BID tab 07/14/19 09/19/20 release blood sugar diagnostic #10 ea 05/22/20 05/22/20 amitriptyline 100 mg PO HS 09/19/20 09/19/20 Previous Rx's Medication Instructions Recorded miscellaneous medical supply #1 ea 07/31/19 Portable Oxygen #1 ea 10/16/19 Oxygen Home #1 ea 03/17/20 Oxygen Home #1 ea 04/27/20 insulin aspart U-100 100 unit/mL 50 unit SUBCUT DAILY 90 Days #45 ml 07/27/20 (3 mL) subcutaneous pen insulin glargine 100 unit/mL (3 25 unit SUBCUT DAILY #30 ml 07/27/20 mL) subcutaneous pen Results & Data (ED) Vital Signs Vital Signs - 24 hr 09/19/20 16:57 09/19/20 17:01 09/19/20 17:32 Temperature 36.8 C Temperature Source Oral Pulse Rate 93 H 91 H 91 H Pulse Rate [Finger] 93 H Pulse Rate from SpO2 Sensor 91 H 90 Respiratory Rate 34 H 22 21 Respiratory Effort / Characteristics Non-Labored Spontaneous Respiratory Depth Normal Respiratory Pattern Regular Blood Pressure 158/71 H 151/78 H Blood Pressure Mean 100 102 Pulse Oximetry 88 L 92 94 Oxygen Delivery Method Nasal Cannula Nasal Cannula BiPAP Oxygen Flow Rate 6 7 Fraction of Inspired Oxygen Sepsis Recent Fever Within 48 Hours No Sepsis New/Unexplained Change in Mental Status N/A Sepsis Action Taken by Nursing No Action Required 09/19/20 17:37 09/19/20 17:40 09/19/20 17:43 Temperature Temperature Source Pulse Rate 90 90 Pulse Rate [Finger] Pulse Rate from SpO2 Sensor 90 Respiratory Rate 26 H 8 L Respiratory Effort / Characteristics Spontaneous Respiratory Depth Normal Respiratory Pattern Blood Pressure Blood Pressure Mean Pulse Oximetry 92 90 Oxygen Delivery Method BiPAP Oxygen Flow Rate Fraction of Inspired Oxygen 35 Sepsis Recent Fever Within 48 Hours Sepsis New/Unexplained Change in Mental Status Sepsis Action Taken by Nursing 09/19/20 17:45 09/19/20 17:50 09/19/20 18:00 Temperature Temperature Source Pulse Rate 89 88 88 Pulse Rate [Finger] Pulse Rate from SpO2 Sensor 89 Respiratory Rate 15 17 21 Respiratory Effort / Characteristics Respiratory Depth Respiratory Pattern Blood Pressure 159/93 H Blood Pressure Mean 115 Pulse Oximetry 92 Oxygen Delivery Method BiPAP BiPAP BiPAP Oxygen Flow Rate Fraction of Inspired Oxygen Sepsis Recent Fever Within 48 Hours Sepsis New/Unexplained Change in Mental Status Sepsis Action Taken by Nursing 09/19/20 18:01 09/19/20 18:10 09/19/20 18:30 Temperature Temperature Source Pulse Rate 88 87 Pulse Rate [Finger] Pulse Rate from SpO2 Sensor Respiratory Rate 16 27 H Respiratory Effort / Characteristics Respiratory Depth Respiratory Pattern Blood Pressure 121/89 147/88 H Blood Pressure Mean 99 107 Pulse Oximetry Oxygen Delivery Method BiPAP BiPAP BiPAP Oxygen Flow Rate Fraction of Inspired Oxygen Sepsis Recent Fever Within 48 Hours Sepsis New/Unexplained Change in Mental Status Sepsis Action Taken by Nursing 09/19/20 18:52 09/19/20 19:00 09/19/20 19:10 Temperature Temperature Source Pulse Rate 90 88 Pulse Rate [Finger] Pulse Rate from SpO2 Sensor 89 90 88 Respiratory Rate 27 H 30 H Respiratory Effort / Characteristics Respiratory Depth Respiratory Pattern Blood Pressure 122/90 Blood Pressure Mean 100 Pulse Oximetry 89 L 88 L Oxygen Delivery Method BiPAP BiPAP BiPAP Oxygen Flow Rate Fraction of Inspired Oxygen Sepsis Recent Fever Within 48 Hours Sepsis New/Unexplained Change in Mental Status Sepsis Action Taken by Nursing 09/19/20 19:20 09/19/20 19:28 09/19/20 19:29 Temperature Temperature Source Pulse Rate 88 88 Pulse Rate [Finger] 88 Pulse Rate from SpO2 Sensor 87 Respiratory Rate 27 H 24 24 Respiratory Effort / Characteristics Non-Labored Spontaneous Non-Labored Spontaneous Respiratory Depth Normal Respiratory Pattern Regular Blood Pressure Blood Pressure Mean Pulse Oximetry 85 L 84 L 84 L Oxygen Delivery Method BiPAP BiPAP Oxygen Flow Rate Fraction of Inspired Oxygen 35 35 Sepsis Recent Fever Within 48 Hours Sepsis New/Unexplained Change in Mental Status Sepsis Action Taken by Nursing 09/19/20 19:30 09/19/20 19:31 09/19/20 19:40 Temperature Temperature Source Pulse Rate 87 87 86 Pulse Rate [Finger] Pulse Rate from SpO2 Sensor 88 87 86 Respiratory Rate 24 28 H 26 H Respiratory Effort / Characteristics Respiratory Depth Respiratory Pattern Blood Pressure 137/77 Blood Pressure Mean 97 Pulse Oximetry 92 94 93 Oxygen Delivery Method BiPAP BiPAP BiPAP Oxygen Flow Rate Fraction of Inspired Oxygen Sepsis Recent Fever Within 48 Hours Sepsis New/Unexplained Change in Mental Status Sepsis Action Taken by Nursing 09/19/20 19:50 Temperature Temperature Source Pulse Rate 87 Pulse Rate [Finger] Pulse Rate from SpO2 Sensor 86 Respiratory Rate 17 Respiratory Effort / Characteristics Respiratory Depth Respiratory Pattern Blood Pressure Blood Pressure Mean Pulse Oximetry 88 L Oxygen Delivery Method BiPAP Oxygen Flow Rate Fraction of Inspired Oxygen Sepsis Recent Fever Within 48 Hours Sepsis New/Unexplained Change in Mental Status Sepsis Action Taken by Nursing Laboratory Data Result diagrams: 09/20/20 05:35 09/20/20 05:35 Lab Results 09/19/20 09/19/20 09/19/20 Range/Units 17:30 17:30 17:34 WBC 7.96 (4.8-10.8) K/uL RBC 5.65 H (4.2-5.4) M/uL Hgb 14.0 (12.0-16.0) g/dL Hct 46.6 (37-47) % MCV 82.5 (80-100) fL MCH 24.8 L (25-34) pg MCHC 30.0 L (32-36) g/dL RDW Std Deviation 62.9 H (36.4-46.3) fL RDW Coeff of Emiliano 21.2 H (11.5-14.5) % Plt Count 335 (130-400) K/uL MPV 9.9 (7.4-10.4) fL Immature Gran % (Auto) 0.1 % Neut % (Auto) 80.1 % Lymph % (Auto) 10.2 % Chase % (Auto) 8.3 % Eos % (Auto) 0.8 % Baso % (Auto) 0.5 % Neut # (Auto) 6.38 (1.4-6.5) K/uL Lymph # (Auto) 0.81 L (1.2-3.4) K/uL Chase # (Auto) 0.66 H (0.11-0.59) K/uL Eos # (Auto) 0.06 (0-0.5) K/uL Baso # (Auto) 0.04 (0-0.2) K/uL Immature Gran # (Auto) 0.01 (0.00-0.02) K/uL Anisocytosis Present Spherocytes 1+ VBG pH (7.36-7.41) VBG pCO2 (38-50) mmHg VBG pO2 mmHg VBG HCO3 mmol/L VBG O2 Saturation % VBG Base Excess mEq/L Barometric Pressure mm/Hg Sodium (136-145) mmol/L Potassium (3.5-5.1) mmol/L Chloride (98-107) mmol/L Carbon Dioxide (21-32) mmol/L Anion Gap (3-11) BUN (7-18) mg/dl Creatinine (0.6-1.2) mg/dl Est Cr Clr Drug Dosing ml/min Est GFR ( Amer) Est GFR (Non-Af Amer) BUN/Creatinine Ratio (10-20) Glucose (70-99) mg/dl Lactate (0.4-2.0) mmol/L Calcium (8.5-10.1) mg/dl Magnesium (1.8-2.4) mg/dl Total Bilirubin (0.2-1) mg/dl AST (15-37) U/L ALT (12-78) U/L Alkaline Phosphatase (45-117) U/L NT-Pro-B Natriuret Pep (0-900) pg/ml Total Protein (6.4-8.2) gm/dl Albumin (3.4-5.0) gm/dl Globulin (2.5-4.0) gm/dl Albumin/Globulin Ratio (0.9-2) TSH (0.300-4.500) uIu/ml COVID-19 Eval Order CovFluRsv at [facility] SARS-CoV-2 (PCR) NEGATIVE (Negative) Influenza Type A (PCR) Negative (Neg) Influenza Type B (PCR) Negative (Neg) RSV (RT-PCR) Negative (Neg) 09/19/20 09/19/20 09/19/20 Range/Units 17:34 17:34 17:41 WBC (4.8-10.8) K/uL RBC (4.2-5.4) M/uL Hgb (12.0-16.0) g/dL Hct (37-47) % MCV (80-100) fL MCH (25-34) pg MCHC (32-36) g/dL RDW Std Deviation (36.4-46.3) fL RDW Coeff of Emiliano (11.5-14.5) % Plt Count (130-400) K/uL MPV (7.4-10.4) fL Immature Gran % (Auto) % Neut % (Auto) % Lymph % (Auto) % Chase % (Auto) % Eos % (Auto) % Baso % (Auto) % Neut # (Auto) (1.4-6.5) K/uL Lymph # (Auto) (1.2-3.4) K/uL Chase # (Auto) (0.11-0.59) K/uL Eos # (Auto) (0-0.5) K/uL Baso # (Auto) (0-0.2) K/uL Immature Gran # (Auto) (0.00-0.02) K/uL Anisocytosis Spherocytes VBG pH 7.34 L (7.36-7.41) VBG pCO2 65 H (38-50) mmHg VBG pO2 61 mmHg VBG HCO3 35 mmol/L VBG O2 Saturation 85.8 % VBG Base Excess 6.9 mEq/L Barometric Pressure 738.4 mm/Hg Sodium 136 (136-145) mmol/L Potassium 4.7 (3.5-5.1) mmol/L Chloride 97 L (98-107) mmol/L Carbon Dioxide 34 H (21-32) mmol/L Anion Gap 5.0 (3-11) BUN 19 H (7-18) mg/dl Creatinine 1.09 (0.6-1.2) mg/dl Est Cr Clr Drug Dosing 58.3 ml/min Est GFR ( Amer) 61.7 Est GFR (Non-Af Amer) 53.2 BUN/Creatinine Ratio 17.3 (10-20) Glucose 191 H (70-99) mg/dl Lactate 1.7 (0.4-2.0) mmol/L Calcium 8.4 L (8.5-10.1) mg/dl Magnesium 1.4 L (1.8-2.4) mg/dl Total Bilirubin 0.5 (0.2-1) mg/dl AST 8 L (15-37) U/L ALT 13 (12-78) U/L Alkaline Phosphatase 271 H (45-117) U/L NT-Pro-B Natriuret Pep 4711 H (0-900) pg/ml Total Protein 6.9 (6.4-8.2) gm/dl Albumin 1.9 L (3.4-5.0) gm/dl Globulin 5.0 H (2.5-4.0) gm/dl Albumin/Globulin Ratio 0.4 L (0.9-2) TSH 2.770 (0.300-4.500) uIu/ml COVID-19 Eval Order SARS-CoV-2 (PCR) (Negative) Influenza Type A (PCR) (Neg) Influenza Type B (PCR) (Neg) RSV (RT-PCR) (Neg) Administered Medications Enoxaparin Sodium (Enoxaparin Inj 40 Mg/0.4 Ml Syr) 40 mg SQ QAM [facility] Stop: 10/20/20 08:59 Last Admin: 09/20/20 09:26 Dose: 40 mg Documented by: [id number] Furosemide 40 mg/ Sy[facility] 4 mls [facility] Stop: 09/21/20 17:00 Last Admin: 09/20/20 09:26 Dose: 4 mls/min Documented by: [id number] Insulin Aspart (Insulin Aspart 100 Units/Ml 3 Ml Pen) 0 units SC Q6 [facility] Stop: 10/20/20 00:00 Last Admin: 09/20/20 06:38 Dose: Not Given Documented by: [id number] Cosigned by: [id number] Admin: 09/20/20 00:04 Dose: Not Given Documented by: [id number] Cosigned by: [id number] Insulin Glargine (Insulin Glargine Solostar 100 Units/Ml 3 Ml Pen) 10 units SC BID [facility] Stop: 10/20/20 08:59 Last Admin: 09/20/20 09:35 Dose: 10 units Documented by: [id number] Cosigned by: [id number] Ipratropium [place] (Ipratropium [place] Neb Soln 0.02% 2.5 Ml Vial) 0.5 mg INH Q6R [facility] Stop: 10/20/20 00:59 Last Admin: 09/20/20 07:33 Dose: 0.5 mg Documented by: [id number] Admin: 09/20/20 00:30 Dose: 0.5 mg Documented by: [id number] Levalbuterol HCl (Levalbuterol 1.25mg/0.5ml Neb) 1.25 mg INH Q6R [facility] Stop: 10/20/20 00:59 Last Admin: 09/20/20 07:33 Dose: 1.25 mg Documented by: [id number] Admin: 09/20/20 00:28 Dose: 1.25 mg Documented by: [id number] Pantoprazole Sodium (Pantoprazole 40 Mg Tab) 40 mg PO BID [facility] Stop: 10/19/20 22:23 Last Admin: 09/19/20 23:38 Dose: Not Given Documented by: [id number] Discontinued Medications Albuterol (Albut/Ipratrop 3mg/0.5mg Neb 3 Ml Vial) 3 ml NEB NOW STA Stop: 09/19/20 19:14 Last Admin: 09/19/20 19:26 Dose: 3 ml Documented by: [id number] Furosemide (Furosemide 40 Mg/4 Ml Vial) 40 mg IV NOW STA Stop: 09/19/20 19:13 Last Admin: 09/19/20 19:52 Dose: 40 mg Documented by: [id number] Sodium Chloride (Nss 1000ml) 1,000 mls @ 999 mls/hr IV .Q1H1M [facility]OM Stop: 09/19/20 18:15 Last Infusion: 09/19/20 18:45 Dose: 0 mls/hr Documented by: [id number] Admin: 09/19/20 17:42 Dose: 999 mls/hr Documented by: [id number] Methylprednisolone 20 mg/ (Syringe) 0.32 mls @ 1.5 mls/min IV NOW STA Stop: 09/19/20 19:17 Last Admin: 09/19/20 20:31 Dose: Not Given Documented by: [id number] Ampicillin Sodium/Sulbactam Sodium 3,000 mg/ Sodium Chloride 108 mls @ 200 mls/hr IV NOW STA Stop: 09/19/20 20:23 Last Infusion: 09/19/20 21:06 Dose: 0 mls/hr Documented by: [id number] Admin: 09/19/20 20:30 Dose: 200 mls/hr Documented by: [id number] Magnesium Sulfate/Dextrose (Magnesium Sulfate / D5w) 1 gm in 100 mls @ 50 mls/hr IV Q2H STA Stop: 09/19/20 22:05 Last Infusion: 09/19/20 23:41 Dose: 0 mls/hr Documented by: [id number] Admin: 09/19/20 20:41 Dose: 50 mls/hr Documented by: [id number] Insulin Glargine (Insulin Glargine Solostar 100 Units/Ml 3 Ml Pen) 10 units SC NOW STA Stop: 09/19/20 20:04 Last Admin: 09/19/20 21:09 Dose: 10 units Documented by: [id number] Cosigned by: [id number] Methylprednisolone (Methylprednisolone 40 Mg/Ml Vial) 20 mg IV NOW STA Stop: 09/19/20 19:20 Last Admin: 09/19/20 19:52 Dose: 20 mg Documented by: [id number] Discharge Plan Visit Data Chief Complaint: Leg Weakness, Bilateral ED Provider: Ricardo Hunter Discharge Problem: CHF (congestive heart failure), Acute on chronic respiratory failure with hypoxemia Patient Disposition: Admitted As Inpatient Discharge Instructions Interventions: ED Discharge Assessment Last Done: 09/19/20 21:35 Discharge Problem: CHF (congestive heart failure) Qualifiers: Heart failure type: unspecified Heart failure chronicity: unspecified Qualified Code(s): I50.9 - Heart failure, unspecified
[2020-09-19] MEDS ORDERED: SODIUM CHLORIDE 0.9% 1000ML 1,000 ML IV SCH (17:15)
[2020-09-19 17:54] LABS: Basophils # (auto) 0.04 K/uL (0-0.2); Basophils % (auto) 0.5 %; Eosinophils # (auto) 0.06 K/uL (0-0.5); Eosinophils % (auto) 0.8 %; Hematocrit (blood only) 46.6 % (37-47); Immature Granulocytes # (auto) 0.01 K/uL (0.00-0.02); Immature Granulocytes % (auto) 0.1 %; Lymphocytes # (auto) 0.81 K/uL (1.2-3.4); Lymphocytes % (auto) 10.2 %; Mean Corpuscular Hemoglobin 24.8 pg (25-34); Mean Corpuscular Volume 82.5 fL (80-100); Mean Platelet Volume 9.9 fL (7.4-10.4); Monocytes # (auto) 0.66 K/uL (0.11-0.59); Monocytes % (auto) 8.3 %; Neutrophils # (auto) 6.38 K/uL (1.4-6.5); Neutrophils % (auto) 80.1 %; Platelet Count 335 K/uL (130-400); RDW Coefficient of Variation 21.2 % (11.5-14.5); RDW Standard Deviation 62.9 fL (36.4-46.3); Red Blood Count 5.65 M/uL (4.2-5.4); White Blood Count 7.96 K/uL (4.8-10.8)
[2020-09-19 18:03] LABS: Base Excess VBG 6.9 mEq/L; Oxygen Saturation VBG 85.8 %; pH VBG 7.34 (7.36-7.41)
[2020-09-19 18:11] LABS: Albumin Level 1.9 gm/dl (3.4-5.0); BUN Creatinine Ratio 17.3 (10-20); Calcium 8.4 mg/dl (8.5-10.1); Creatinine Clr Calc Pharmacy 58.3 ml/min; Est GFR (African American) 61.7; Est GFR (Non-African American) 53.2; Potassium 4.7 mmol/L (3.5-5.1)
[2020-09-19 18:14] LABS: Anisocytosis Present; Spherocytes 1+
[2020-09-19 18:22] LABS: Albumin Globulin Ratio 0.4 (0.9-2); Bilirubin,Total 0.5 mg/dl (0.2-1); Thyroid Stimulating Hormone 2.77 uIu/ml (0.300-4.500); Total Protein 6.9 gm/dl (6.4-8.2)
--- NOTE | 2020-09-19 18:33 | XRay Report ---
XR chest 1V portable CLINICAL HISTORY: weakness COMPARISON STUDY: 10/22/2018 FINDINGS: The heart remains enlarged. There is continued evidence of pulmonary vascular congestion. T here are mild airspace opacities likely representing focal edema although an infectious/inflammatory processes could appear similar[ IMPRESSION: Cardiomegaly and radiographic evidence of congestive failure/fluid overload. Minor airspa ce opacities most pronounced at the lung bases likely representing focal edema although an infectious /inflammatory process could appear similar ACT 112: Negative or not required by law. Electronically signed by: Abdoulaye Madrid M.D. 09/19/2020 6:31 PM
[2020-09-19 18:35] LABS: Influenza A virus by PCR Negative (Neg); Influenza B virus by PCR Negative (Neg); RSV by PCR Negative (Neg); SARS CoV2 RNA(COVID-19) InHosp NEGATIVE (Negative)
[2020-09-19] MEDS ORDERED: FUROSEMIDE 40 MG/4 ML VIAL IV STA ×2 (19:12→19:13)
[2020-09-19] MEDS ORDERED: ALBUT/IPRATROP 3MG/0.5MG NEB 3 ML VIAL NEB STA (19:13)
[2020-09-19] MEDS ORDERED: methylPREDNISolone 20 MG in SYRINGE 0 ML IV STA (19:16)
[2020-09-19 19:24] LABS: Magnesium 1.4 mg/dl (1.8-2.4)
[2020-09-19] MEDS ORDERED: AMPICILLIN/SULBACTAM SOD 3,000 MG in 0.9 % SODIUM CHLORIDE 100 ML IV STA (19:51)
--- NOTE | 2020-09-19 19:51 | History & Physical Report ---
Date of Service September 19, 2020 Assessment & Plan (1) Respiratory failure with hypoxia and hypercapnia: Acute on chronic Multifactorial : Decompensated heart failure, chronic right-sided heart failure (EF 70%, TTE 2018), NICK (CPAP noncompliance) secondary to CPAP noncompliance, dietary indiscretion COPD/RLD exacerbation, possible aspiration pneumonitis HTN, stable hyperlipidemia, on statin Rx hypothyroidism, euthyroid as of today's TSH DM 1, reasonable control as of recent hemoglobin A1c of 7.22 June 2020 hx fibromyalgia ongoing tobacco abuse PCU BiPAP for now Follow-up ABG Diuretic Rx Strict I/Os, daily weights, CHF education Update TTE, Cardiology consult Re: Decompensated CHF Unasyn, nebs, prednisone course for COPD/RLD exacerbation secondary to possible aspiration pneumonitis Swallow eval Pulmonary consult Re: Respiratory failure, COPD/RLD exacerbation Patient counseled about necessity of CPAP compliance. Basal insulin, ISS BG goal [id number], carb count coverage Nicotine patch as needed DVT prophylaxis per Lovenox subcu Full code Patient's requesting updates from providers. Mr. Jamal Tracy, contact #[phone]. Total critical care time was 40 minutes. Text document was generated using [employer] voice recognition software. It may contain grammatical or spelling errors. Kindly contact undersigned for clarification of any documentation item in question. History of Present Illness Chief Complaint: Shortness of breath Primary Care Provider: Alex Meza MD History obtained from patient, family, and records. Medical history is significant for chronic right-sided heart failure (EF 70%, TTE 2019), COPD/RLD as per records, NICK (CPAP noncompliance), pulmonary hypertension, HTN, hyperlipidemia, hypothyroidism, DM 1, fibromyalgia, gastroparesis as per records, ongoing tobacco abuse. Last confinement October 2014 under General Surgery service for infected hernia mesh status post surgery. 1 week history of worsening shortness of breath. Worsening chronic cough symptoms productive of green-yellow sputum. Admits to some choking with meals/water intake. No known sick Covid 19 contacts. No chest pain. Increased fluid retention and about 40 pound weight gain in the last few months. Admits to dietary indiscretion. Patient not compliant with CPAP as per . Increasing generalized weakness. Patient brought to the ER for evaluation. Patient noted to be hypoxemic at the ER. BiPAP initiated at the ER. MEDICAL HISTORY: As above. SURGERIES: Endometrial ablation, hemorrhoidectomy with fissurectomy, hernia repair, appendectomy, right oophorectomy, VITOR FAMILY HISTORY: DM, stroke PERSONAL SOCIAL HISTORY: 1 pack daily, occasional EtOH intake, prior work as a [employer] Allergies Allergy/AdvReac Type Severity Reaction Status Date / Time lamotrigine Allergy Mild RASH Verified 09/19/20 19:11 Sulfa (Sulfonamide Allergy Unknown Verified 09/19/20 19:11 Antibiotics) Tetracyclines Allergy Unknown Verified 09/19/20 19:11 mold Allergy Verified 09/19/20 19:11 topiramate [From Topamax] Allergy Verified 09/19/20 19:11 morphine AdvReac Intermediate SEVERE Verified 09/19/20 19:11 NAUSEA Home Medications Medication Instructions Recorded Confirmed Type rosuvastatin 10 mg PO DAILY 10/22/18 09/19/20 History glucagon HCl 1 mg/mL solution for 1 mg SUBCUT DIRECTED PRN #1 ea 07/14/19 09/19/20 History injection omeprazole 20 mg tablet,delayed 20 mg PO BID tab 07/14/19 09/19/20 History release miscellaneous medical supply #1 ea 07/31/19 05/22/20 Rx Portable Oxygen #1 ea 10/16/19 05/22/20 Rx Oxygen Home #1 ea 03/17/20 05/22/20 Rx Oxygen Home #1 ea 04/27/20 05/22/20 Rx blood sugar diagnostic #10 ea 05/22/20 05/22/20 History insulin aspart U-100 100 unit/mL 50 unit SUBCUT DAILY 90 Days #45 ml 07/27/20 09/19/20 Rx (3 mL) subcutaneous pen insulin glargine 100 unit/mL (3 25 unit SUBCUT DAILY #30 ml 07/27/20 09/19/20 Rx mL) subcutaneous pen amitriptyline 100 mg PO HS 09/19/20 09/19/20 History Past Med/Surg History Medical History (Updated 09/19/20 @ 21:08 by Benito Vu MD) Abdominal pain Bowel perforation Chronic bronchitis with acute exacerbation Diabetes Encounter for incision and drainage procedure Esophageal reflux Incarcerated ventral hernia Infected hernioplasty mesh Infected prosthetic mesh of abdominal wall Perforated nasal septum Personal history of nicotine dependence Pleural effusion Pulmonary emphysema Restless legs syndrome Restrictive lung disease Tinea pedis Vitamin D deficiency Surgical History (Updated 11/28/19 @ 12:00 by Alex Rangel MD) H/O umbilical hernia repair H/O: hysterectomy History of carpal tunnel release S/P anal fissurectomy Family History (Updated 11/28/19 @ 12:01 by Alex Rangel MD) Father Hypertension Diabetes Other Gallbladder disease Heart disease Lung disease Social History (Updated 03/17/20 @ 19:13 by Benito Bazan DO) Smoking Status: Current every day smoker Tobacco Type: Cigarettes packs per day: 1; Years Smoked: 45; Cigarettes Per Day: 20; Do You Dip or Chew Tobacco: No; Tobacco Cessation Education Requested by Patient: No Hx Alcohol Use: No Hx Substance Use: No Preferred Language: Belgian Communication Ability: Effective Window Dresser Required: No Beliefs That Will Affect Care: None marital status: Current Living Situation: Spouse current occupational status: disabled Other Information That Helps Us Care for You: No Feels Safe at Home: Yes Safety Concerns: Feels Safe At This Time Assistive Devices: Walker Review of Systems Review of Systems: As per HPI, all 10 systems reviewed, all other ROS negative Physical Exam Physical Exam: GENERAL: uncomfortable, obese, respiratory distress SKIN: Normal color, warm HEENT: [place] palpebral conjunctivae, no ptosis, dry buccal mucosa, BiPAP in place NECK : Supple, short neck, no tenderness CHEST : Decreased breath sounds, expiratory wheezes, no tenderness HEART : RRR, no obvious murmurs ABDOMEN: Some distention, nontender EXTREMITIES : LE venous stasis, no LE tenderness, no other conspicuous deformities noted NEUROLOGIC : Coherent, no facial asymmetry, no other gross focality Results & Data Results & Data ([facility]) Vital Signs (Past 12 Hours) Vital Signs Temp Pulse Pulse Resp BP Pulse Ox 09/19/20 19:29 88 24 84 L 09/19/20 19:28 88 24 84 L 09/19/20 19:10 88 30 H 88 L 09/19/20 19:00 90 27 H 122/90 09/19/20 18:52 89 L 09/19/20 18:30 147/88 H 09/19/20 18:10 87 27 H 09/19/20 18:01 88 16 121/89 09/19/20 18:00 88 21 09/19/20 17:50 88 17 09/19/20 17:45 89 15 159/93 H 92 09/19/20 17:40 90 8 L 90 09/19/20 17:37 90 26 H 92 09/19/20 17:32 91 H 21 94 09/19/20 17:01 91 H 22 151/78 H 92 09/19/20 16:57 36.8 C 93 H 93 H 34 H 158/71 H 88 L Laboratory Results Laboratory Results WBC 7.96 K/uL (4.8-10.8) 09/19/20 17:34 RBC 5.65 M/uL (4.2-5.4) H 09/19/20 17:34 Hgb 14.0 g/dL (12.0-16.0) 09/19/20 17:34 Hct 46.6 % (37-47) 09/19/20 17:34 MCV 82.5 fL (80-100) 09/19/20 17:34 MCH 24.8 pg (25-34) L 09/19/20 17:34 MCHC 30.0 g/dL (32-36) L 09/19/20 17:34 RDW Std Deviation 62.9 fL (36.4-46.3) H 09/19/20 17:34 RDW Coeff of Emiliano 21.2 % (11.5-14.5) H 09/19/20 17:34 Plt Count 335 K/uL (130-400) 09/19/20 17:34 MPV 9.9 fL (7.4-10.4) 09/19/20 17:34 Immature Gran % (Auto) 0.1 % 09/19/20 17:34 Neut % (Auto) 80.1 % 09/19/20 17:34 Lymph % (Auto) 10.2 % 09/19/20 17:34 [place] % (Auto) 8.3 % 09/19/20 17:34 Eos % (Auto) 0.8 % 09/19/20 17:34 Baso % (Auto) 0.5 % 09/19/20 17:34 Neut # (Auto) 6.38 K/uL (1.4-6.5) 09/19/20 17:34 Lymph # (Auto) 0.81 K/uL (1.2-3.4) L 09/19/20 17:34 [place] # (Auto) 0.66 K/uL (0.11-0.59) H 09/19/20 17:34 Eos # (Auto) 0.06 K/uL (0-0.5) 09/19/20 17:34 Baso # (Auto) 0.04 K/uL (0-0.2) 09/19/20 17:34 Immature Gran # (Auto) 0.01 K/uL (0.00-0.02) 09/19/20 17:34 Anisocytosis Present 09/19/20 17:34 Spherocytes 1+ 09/19/20 17:34 VBG pH 7.34 (7.36-7.41) L 09/19/20 17:41 VBG pCO2 65 mmHg (38-50) H 09/19/20 17:41 VBG pO2 61 mmHg 09/19/20 17:41 VBG HCO3 35 mmol/L 09/19/20 17:41 VBG O2 Saturation 85.8 % 09/19/20 17:41 VBG Base Excess 6.9 mEq/L 09/19/20 17:41 Barometric Pressure 738.4 mm/Hg 09/19/20 17:41 Sodium 136 mmol/L (136-145) 09/19/20 17:34 Potassium 4.7 mmol/L (3.5-5.1) 09/19/20 17:34 Chloride 97 mmol/L (98-107) L 09/19/20 17:34 Carbon Dioxide 34 mmol/L (21-32) H 09/19/20 17:34 Anion Gap 5.0 (3-11) 09/19/20 17:34 BUN 19 mg/dl (7-18) H 09/19/20 17:34 Creatinine 1.09 mg/dl (0.6-1.2) 09/19/20 17:34 Est Cr Clr Drug Dosing 58.3 ml/min 09/19/20 17:34 Est GFR ( Amer) 61.7 09/19/20 17:34 Est GFR (Non-Af Amer) 53.2 09/19/20 17:34 BUN/Creatinine Ratio 17.3 (10-20) 09/19/20 17:34 Glucose 191 mg/dl (70-99) H 09/19/20 17:34 Lactate 1.7 mmol/L (0.4-2.0) 09/19/20 17:34 Calcium 8.4 mg/dl (8.5-10.1) L 09/19/20 17:34 Magnesium 1.4 mg/dl (1.8-2.4) L 09/19/20 17:34 Total Bilirubin 0.5 mg/dl (0.2-1) 09/19/20 17:34 AST 8 U/L (15-37) L 09/19/20 17:34 ALT 13 U/L (12-78) 09/19/20 17:34 Alkaline Phosphatase 271 U/L (45-117) H 09/19/20 17:34 NT-Pro-B Natriuret Pep 4711 pg/ml (0-900) H 09/19/20 17:34 Total Protein 6.9 gm/dl (6.4-8.2) 09/19/20 17:34 Albumin 1.9 gm/dl (3.4-5.0) L 09/19/20 17:34 Globulin 5.0 gm/dl (2.5-4.0) H 09/19/20 17:34 Albumin/Globulin Ratio 0.4 (0.9-2) L 09/19/20 17:34 TSH 2.770 uIu/ml (0.300-4.500) 09/19/20 17:34 COVID-19 Eval Order CovFluRsv at [facility] 09/19/20 17:30 SARS-CoV-2 (PCR) NEGATIVE (Negative) 09/19/20 17:30 Influenza Type A (PCR) Negative (Neg) 09/19/20 17:30 Influenza Type B (PCR) Negative (Neg) 09/19/20 17:30 RSV (RT-PCR) Negative (Neg) 09/19/20 17:30 Diagnostic Findings Chest x-ray : Cardiomegaly and radiographic evidence of congestive failure/fluid overload. Minor airspace opacities most pronounced at the lung bases likely representing focal edema although an infectious/inflammatory process could appear similar EKG as per my interpretation : Rate 90, NSR, RAD, RVH, T wave abnormality septal leads
[2020-09-19] MEDS ORDERED: INSULIN GLARGINE SOLOSTAR 100 UNITS/ML 3 ML PEN SC STA (20:03)
[2020-09-19] MEDS ORDERED: MAGNESIUM SULFATE / D5W 1 GM/100 ML BAG IV STA (20:06)
[2020-09-19 21:11] LABS: Appearance Urine Clear (Clear); Bacteria Urine Automated 2+ (Negative); Bilirubin Urine Negative (Negative); Blood Urine Trace (Negative); Color Urine Yellow; Glucose Urine UA Negative (Negative); Ketones Urine Negative (Negative); Leukocyte Esterase Urine Negative (Negative); Nitrite Urine Positive (Negative); Protein Urine Negative (Negative); RBC Urine Automated 0-4 /hpf (0-4); Specific Gravity Urine 1.013 (1.000-1.030); Urobilinogen Urine Negative (Negative)
[2020-09-19] MEDS ORDERED: GLUCOSE 10 TABS/TUBE PO PRN (22:24)
[2020-09-19] MEDS ORDERED: ACETAMINOPHEN 325 MG TAB PO PRN (22:24)
[2020-09-19] MEDS ORDERED: PROMETHAZINE HCL 12.5 MG in SODIUM CHLORIDE 0.9% 50 ML IV PRN (22:24)
[2020-09-19] MEDS ORDERED: GLUCOSE 40% GEL 15 GM TUBE PO PRN (22:24)
[2020-09-19] MEDS ORDERED: DEXTROSE 50% 50 ML SYRINGE IV PRN (22:24)
[2020-09-19] MEDS ORDERED: CARBOHYDRATES FOR HYPOGLYCEMIA PO PRN (22:24)
[2020-09-19] MEDS ORDERED: GLUCAGON FOR INJ 1 MG VIAL SQ PRN (22:24)
[2020-09-19 22:47] LABS: Allen Test Pos (Pos); Base Excess ABG 6.6 mEq/L (-9-1.8); HCO3 ABG 34 mmol/L (19-24); Oxygen Saturation ABG 95.7 % (90-95); PCO2 ABG 62 mmHg (35-46); PO2 ABG 81 mmHg (80-95); pH ABG 7.36 (7.35-7.45)
[2020-09-19] MEDS: PANTOprazole 40 MG TAB PO SCH (23:38)
[2020-09-20] MEDS: INSULIN ASPART 100 UNITS/ML 3 ML PEN SC SCH ×5 (00:04→20:59)
[2020-09-20] MEDS ORDERED: Augmentin: PHARMACY CONSULT IN PROGRESS PRN (00:22)
[2020-09-20] MEDS: LEVALBUTEROL 1.25MG/0.5ML NEB INH SCH ×4 (00:28→19:07)
[2020-09-20] MEDS: IPRATROPIUM BROMIDE NEB SOLN 0.02% 2.5 ML VIAL INH SCH ×4 (00:30→19:07)
[2020-09-20] MEDS ORDERED: XOPENEX/ATROVENT 1.25mg/0.5MG NEB COMBO NEB SCH (01:00)
[2020-09-20 06:09] LABS: Basophils # (auto) 0.01 K/uL (0-0.2); Basophils % (auto) 0.1 %; Hematocrit (blood only) 46.7 % (37-47); Hemoglobin 13.9 g/dL (12.0-16.0); Immature Granulocytes # (auto) 0.02 K/uL (0.00-0.02); Immature Granulocytes % (auto) 0.3 %; Lymphocytes # (auto) 0.51 K/uL (1.2-3.4); Lymphocytes % (auto) 7.6 %; Mean Corpuscular Hemoglobin 24.6 pg (25-34); Mean Corpuscular Hgb Conc 29.8 g/dL (32-36); Mean Corpuscular Volume 82.5 fL (80-100); Mean Platelet Volume 9.8 fL (7.4-10.4); Monocytes # (auto) 0.29 K/uL (0.11-0.59); Monocytes % (auto) 4.3 %; Neutrophils # (auto) 5.87 K/uL (1.4-6.5); Neutrophils % (auto) 87.7 %; Platelet Count 305 K/uL (130-400); Red Blood Count 5.66 M/uL (4.2-5.4)
[2020-09-20 06:29] LABS: Anisocytosis Present; Spherocytes 1+
[2020-09-20 06:49] LABS: BUN Creatinine Ratio 19.5 (10-20); Calcium 8.1 mg/dl (8.5-10.1); Creatinine Clr Calc Pharmacy 74.4 ml/min; Est GFR (African American) 84.5; Est GFR (Non-African American) 72.9; Magnesium 1.9 mg/dl (1.8-2.4); Potassium 4.5 mmol/L (3.5-5.1)
[2020-09-20] MEDS ORDERED: AMOXICILLIN/CLAVULANATE 875 MG TAB PO SCH (08:00)
[2020-09-20] MEDS ORDERED: FUROSEMIDE 40 MG/4 ML VIAL IV SCH (09:00)
[2020-09-20] MEDS: ENOXAPARIN INJ 40 MG/0.4 ML SYR SQ SCH (09:26)
[2020-09-20] MEDS: FUROSEMIDE 40 MG in SYRINGE 0 ML IV SCH ×2 (09:26→17:00)
[2020-09-20] MEDS: INSULIN GLARGINE SOLOSTAR 100 UNITS/ML 3 ML PEN SC SCH ×2 (09:35→20:59)
[2020-09-20 11:00] LABS: Base Excess ABG 8.4 mEq/L (-9-1.8); HCO3 ABG 36 mmol/L (19-24); Oxygen Saturation ABG 96.4 % (90-95); PCO2 ABG 60 mmHg (35-46); PO2 ABG 89 mmHg (80-95); pH ABG 7.39 (7.35-7.45)
--- NOTE | 2020-09-20 11:24 | Cardiology Consultation ---
Date of Consultation September 20, 2020 Assessment & Plan (1) Respiratory failure with hypoxia and hypercapnia: (2) Acute on chronic heart failure with preserved ejection fraction (HFpEF): (3) Acute on chronic right-sided congestive heart failure: (4) Pulmonary emphysema: (5) Restrictive lung disease: (6) Pulmonary hypertension: (7) Cigarette smoker: Complex 65-year-old female presents with acute on chronic heart failure with preserved ejection fraction and signs/symptoms of acute on chronic right heart failure. Continue IV diuresis with Lasix 40 mg twice daily. Add low-dose Aldactone 12.5 mg daily. First dose today. BiPAP as needed for respiratory support. Follow daily weight, fluid balance, electrolytes, and GFR. Smoking cessation strongly advised. Thank you for allow me to participate in the care of your patient. History of Present Illness Reason for Consultation: Acute decompensated heart failure Requesting Physician: Dr. Gupta Attending Physician: Penny Lugo MD History of Present Illness 65-year-old female presented to the emergency department with progressive shortness of breath. Patient reports being bedbound for several months. Unfortunate, continues to smoke 1 pack of cigarettes per day. Noncompliant with CPAP. Follows with pulmonary medicine for history of COPD, obstructive sleep apnea, chronic right heart failure, and pulmonary hypertension. Chest x-ray on admission demonstrates pulmonary edema. Patient received 2 doses of intravenous Lasix with nearly 2 L diuresis. Currently tolerating BiPAP. No chest pain or palpitations. Telemetry demonstrates sinus rhythm. Nondiagnostic ECG on admission due to significant baseline artifact. Initial troponin undetectable. Allergies Allergy/AdvReac Type Severity Reaction Status Date / Time lamotrigine Allergy Mild RASH Verified 09/19/20 19:11 Sulfa (Sulfonamide Allergy Unknown Verified 09/19/20 19:11 Antibiotics) Tetracyclines Allergy Unknown Verified 09/19/20 19:11 mold Allergy Verified 09/19/20 19:11 topiramate [From Topamax] Allergy Verified 09/19/20 19:11 morphine AdvReac Intermediate SEVERE Verified 09/19/20 19:11 NAUSEA Home Medications Medication Instructions Recorded Confirmed Type rosuvastatin 10 mg PO DAILY 10/22/18 09/19/20 History glucagon HCl 1 mg/mL solution for 1 mg SUBCUT DIRECTED PRN #1 ea 07/14/19 09/19/20 History injection omeprazole 20 mg tablet,delayed 20 mg PO BID tab 07/14/19 09/19/20 History release miscellaneous medical supply #1 ea 07/31/19 05/22/20 Rx Portable Oxygen #1 ea 10/16/19 05/22/20 Rx Oxygen Home #1 ea 03/17/20 05/22/20 Rx Oxygen Home #1 ea 04/27/20 05/22/20 Rx blood sugar diagnostic #10 ea 05/22/20 05/22/20 History insulin aspart U-100 100 unit/mL 50 unit SUBCUT DAILY 90 Days #45 ml 07/27/20 09/19/20 Rx (3 mL) subcutaneous pen insulin glargine 100 unit/mL (3 25 unit SUBCUT DAILY #30 ml 07/27/20 09/19/20 Rx mL) subcutaneous pen amitriptyline 100 mg PO HS 09/19/20 09/19/20 History Patient History Medical History (Updated 09/20/20 @ 12:55 by Harrison Larry MD) Abdominal pain Bowel perforation Chronic bronchitis with acute exacerbation Chronic hypercapnic respiratory failure Diabetes Encounter for incision and drainage procedure Esophageal reflux Incarcerated ventral hernia Infected hernioplasty mesh Infected prosthetic mesh of abdominal wall Perforated nasal septum Personal history of nicotine dependence Pleural effusion Pulmonary emphysema Restless legs syndrome Restrictive lung disease Tinea pedis Vitamin D deficiency Wheezing Surgical History H/O umbilical hernia repair H/O: hysterectomy History of carpal tunnel release S/P anal fissurectomy Family History Father Hypertension Diabetes Other Gallbladder disease Heart disease Lung disease Social History Smoking Status: Current every day smoker Tobacco Type: Cigarettes packs per day: 1; Years Smoked: 45; Cigarettes Per Day: 20; Do You Dip or Chew Tobacco: No; Tobacco Cessation Education Requested by Patient: No Hx Alcohol Use: No Hx Substance Use: No Preferred Language: [place] Communication Ability: Effective Double Bass Player Required: No Beliefs That Will Affect Care: None marital status: Current Living Situation: Spouse current occupational status: disabled Other Information That Helps Us Care for You: No Feels Safe at Home: Yes Safety Concerns: Feels Safe At This Time Assistive Devices: BiPap and Oxygen - Continuous Review of Systems Review of Systems: All systems reviewed & are unremarkable except as noted in Subjective Physical Exam Constitutional: + ill appearing and + obese; no acute distress Eyes: PERRL, conjunctivae normal, anicteric sclerae Respiratory: Auscultation: + rhonchi and + wheezes; no crackles and no rales Coarse breath sounds related to BiPAP therapy. Cardiovascular: Rate/Rhythm: regular rate and regular rhythm Heart Sounds: normal S1 and normal S2; no murmur Vessels: radial pulses present; no JVD and no carotid bruit Extremities: + edema (2+ pitting edema from her feet to the presacral region.) Gastrointestinal (Abdomen): Inspection/Auscultation: normal bowel sounds and + abdominal edema; abdomen not distended Percussion/Palpation: abdomen soft; abdomen nontender, no guarding and abdomen not rigid Neurologic: moves all extremities Motor/Sensory: no tremor Results & Data ([facility]) Vital Signs (Past 12 Hours) Vital Signs Temp Pulse Pulse Pulse Resp BP Pulse Ox 09/20/20 08:00 36.7 C 83 18 150/94 H 99 09/20/20 07:40 86 24 98 09/20/20 07:36 86 24 98 09/20/20 07:34 88 09/20/20 03:55 36.1 C L 88 17 132/79 96 09/20/20 03:22 88 20 94 09/20/20 00:31 88 20 96 09/20/20 00:30 88 20 96 09/20/20 00:00 88 Pulse Ox 09/20/20 08:00 09/20/20 07:40 09/20/20 07:36 09/20/20 07:34 09/20/20 03:55 09/20/20 03:22 09/20/20 00:31 09/20/20 00:30 09/20/20 00:00 96 (1) Respiratory failure with hypoxia and hypercapnia Chronicity: acute on chronic Qualified Code(s): J96.21 - Acute and chronic respiratory failure with hypoxia; J96.22 - Acute and chronic respiratory failure with hypercapnia (2) Pulmonary emphysema Emphysema type: unspecified Qualified Code(s): J43.9 - Emphysema, unspecified
[2020-09-20 12:09] LABS: Allen Test Pos (Pos)
--- NOTE | 2020-09-20 12:30 | Electrocardiogram Report ---
Test Reason : Blood Pressure : / mmHG Vent. Rate : 091 BPM Atrial Rate : 091 BPM P-R Int : 160 ms QRS Dur : 084 ms QT Int : 346 ms P-R-T Axes : 066 133 048 degrees QTc Int : 425 ms Poor data quality, interpretation may be adversely affected Normal sinus rhythm Right axis deviation Abnormal ECG When compared with ECG of 22-OCT-2018 12:55, ST now depressed in Anterior leads Nonspecific T wave abnormality now evident in Inferior leads T wave inversion now evident in Anterior leads Confirmed by Elias Carson ([id number]) on 09/20/2020 12:30:27 PM Referred By: REFERRED SELF Confirmed By:Elias Carson
--- NOTE | 2020-09-20 12:36 | Pulmonary Consultation ---
Date of Consultation September 20, 2020 Assessment & Plan (1) Acute on chronic respiratory failure with hypoxemia: Agree with IV Lasix, 40 mg twice daily. Continue with BiPAP support while sleeping and as needed for respiratory distress. She has chronic compensated hypercapnic respiratory failure. Recommend judicious titration of her IPAP and EPAP given her underlying right-sided heart failure. She would benefit from outpatient PFTs. I will start her on Anoro Ellipta. Smoking cessation is encouraged. She may be a candidate for outpatient pulmonary rehab upon discharge. Weight loss is advised given her BMI of 38.2. Her overall prognosis is poor given her chronically deconditioned state, noncompliance and comorbidities. She can be taken off the BiPAP at this time for an hour or so. Speech therapy is consulted to evaluate her swallowing. I told the nurse that she could have 1 ice chip. She is currently on 20 mg of prednisone and Augmentin for a possible COPD exacerbation. 5 days of treatment is reasonable. I would recommend changing her Augmentin to doxycycline 100 mg twice daily. A right heart catheterization can be considered as an outpatient once her volume status has improved to determine whether there is a component of WHO Group 1 pulmonary hypertension. WHO group 2 and 3 are contributing as well given her underlying emphysema, obesity, obstructive sleep apnea, OHS and diastolic heart failure. Pulmonary will continue to follow along with you. Thank you for the consult. (2) Acute on chronic right-sided congestive heart failure: (3) Acute on chronic heart failure with preserved ejection fraction (HFpEF): (4) Obstructive sleep apnea of adult: (5) Chronic hypercapnic respiratory failure: (6) Wheezing: History of Present Illness Reason for Consultation: Acute respiratory failure Requesting Physician: Dr. Gracia Attending Physician: Penny Lugo MD History of Present Illness This is a 65-year-old female who was previously followed in the pulmonary clinic by Dr. Bazan for bronchitis and restrictive lung disease she has a long history of tobacco abuse and smokes 1 pack/day. She also has a history of obstructive sleep apnea and follows with [facility]. She had an echocardiogram completed today which demonstrated significant right ventricular enlargement. Moderate tricuspid regurg was seen. Estimated RV pressures of 57 mmHg. Ejection fraction was 65 to 70% with grade 1 diastolic dysfunction. Mo derate aortic sclerosis was seen without significant valvular stenosis. Chest x-ray completed today demonstrates bilateral pulmonary edema. Her ABG today demonstrated chronic hypercapnic respiratory failure with acute hypoxia on 4 L of oxygen. No prior pulmonary PFTs are readily available for review. She is currently receiving 40 mg of IV Lasix twice daily. She was started on Augmentin p.o. twice daily and prednisone 20 mg daily for a possible COPD exacerbation. She does not have a significant white count. Hemoglobin is stable. Creatinine is 0.84. Patient notes that she currently sees Dr. Borden of the [facility] pulmonary group. She uses a Trelegy inhaler at home, but has been unable to use it recently due to the inhaler not working properly. She does not use any form of CPAP or BiPAP at home. She notes that she has been feeling very weak and short of breath at home over the last several days. She was basically unable to stand prior to coming to the hospital. She is feeling less short of breath now and is eager to have the BiPAP mask taken off. She is thirsty and and hungry. She denies any chest pain or pressure. She does have a cough and endorses wheezing. Cough is mildly productive. Continues to smoke cigarettes. She does not vape. She lives with 4 other people at home. Allergies Allergy/AdvReac Type Severity Reaction Status Date / Time lamotrigine Allergy Mild RASH Verified 09/19/20 19:11 Sulfa (Sulfonamide Allergy Unknown Verified 09/19/20 19:11 Antibiotics) Tetracyclines Allergy Unknown Verified 09/19/20 19:11 mold Allergy Verified 09/19/20 19:11 topiramate [From Topamax] Allergy Verified 09/19/20 19:11 morphine AdvReac Intermediate SEVERE Verified 09/19/20 19:11 NAUSEA Home Medications Medication Instructions Recorded Confirmed Type rosuvastatin 10 mg PO DAILY 10/22/18 09/19/20 History glucagon HCl 1 mg/mL solution for 1 mg SUBCUT DIRECTED PRN #1 ea 07/14/19 09/19/20 History injection omeprazole 20 mg tablet,delayed 20 mg PO BID tab 07/14/19 09/19/20 History release miscellaneous medical supply #1 ea 07/31/19 05/22/20 Rx Portable Oxygen #1 ea 10/16/19 05/22/20 Rx Oxygen Home #1 ea 03/17/20 05/22/20 Rx Oxygen Home #1 ea 04/27/20 05/22/20 Rx blood sugar diagnostic #10 ea 05/22/20 05/22/20 History insulin aspart U-100 100 unit/mL 50 unit SUBCUT DAILY 90 Days #45 ml 07/27/20 09/19/20 Rx (3 mL) subcutaneous pen insulin glargine 100 unit/mL (3 25 unit SUBCUT DAILY #30 ml 07/27/20 09/19/20 Rx mL) subcutaneous pen amitriptyline 100 mg PO HS 09/19/20 09/19/20 History Patient History Medical History (Updated 09/20/20 @ 12:55 by Harrison Larry MD) Abdominal pain Bowel perforation Chronic bronchitis with acute exacerbation Chronic hypercapnic respiratory failure Diabetes Encounter for incision and drainage procedure Esophageal reflux Incarcerated ventral hernia Infected hernioplasty mesh Infected prosthetic mesh of abdominal wall Perforated nasal septum Personal history of nicotine dependence Pleural effusion Pulmonary emphysema Restless legs syndrome Restrictive lung disease Tinea pedis Vitamin D deficiency Wheezing Surgical History H/O umbilical hernia repair H/O: hysterectomy History of carpal tunnel release S/P anal fissurectomy Family History Father Hypertension Diabetes Other Gallbladder disease Heart disease Lung disease Social History Smoking Status: Current every day smoker Tobacco Type: Cigarettes packs per day: 1; Years Smoked: 45; Cigarettes Per Day: 20; Do You Dip or Chew Tobacco: No; Tobacco Cessation Education Requested by Patient: No Hx Alcohol Use: No Hx Substance Use: No Preferred Language: Turkish Communication Ability: Effective Side Laster Tack Required: No Beliefs That Will Affect Care: None marital status: Current Living Situation: Spouse current occupational status: disabled Other Information That Helps Us Care for You: No Feels Safe at Home: Yes Safety Concerns: Feels Safe At This Time Assistive Devices: BiPap and Oxygen - Continuous Review of Systems Review of Systems: Unobtainable due to cognitive status Results & Data Results & Data ([facility]) Vital Signs (Past 12 Hours) Vital Signs Temp Pulse Pulse Pulse Resp BP Pulse Ox 09/20/20 11:38 83 23 96 09/20/20 08:00 98.1 F 83 18 150/94 H 99 09/20/20 07:40 86 24 98 09/20/20 07:36 86 24 98 09/20/20 07:34 88 09/20/20 03:55 97.0 F L 88 17 132/79 96 09/20/20 03:22 88 20 94 09/20/20 00:31 88 20 96 09/20/20 00:30 88 20 96 I reviewed her vital signs, labs and imaging as noted above PG Care Time/CCT Total # of Minutes Spent Total Time Spent with Patient: Total time spent is greater than 50% in coordination of care (as documented) at patient's floor/unit and/or counseling patient: Coding Level of Care Code 61592 Inpt Consult Level 5 Diagnoses Acute on chronic respiratory failure with hypoxemia J96.21 Acute on chronic right-sided congestive heart failure I50.813 Acute on chronic heart failure with preserved ejection fraction (HFpEF) I50.33 Obstructive sleep apnea of adult G47.33 Chronic hypercapnic respiratory failure J96.12 Wheezing R06.2
--- NOTE | 2020-09-20 13:38 | Hospitalist Progress Note ---
Date of Service September 20, 2020 Assessment & Plan (1) Respiratory failure with hypoxia and hypercapnia: (2) Acute on chronic right-sided congestive heart failure: (3) Acute on chronic heart failure with preserved ejection fraction (HFpEF): Present on admission for SOB, weakness and fall CXR on admission showed evidence of congestive failure/fluid overload. Minor airspace opacities most pronounced at the lung bases likely representing focal edema although an infectious/inflammatory process could appear similar ProBNP elevated 4711 COVID 19, Influenza and RSV are negative Chronic CO2 retention on ABG with PCO2 62 on admission Echo showed the right ventricular cavity appears larger than the left ventricle cavity in the apical four-chamber view suggesting significant ventricular enlargement. ejection fraction 65 to 70%. No significant change compared to the prior echocardiogram Not compliant with Cpap Received IV lasix in the ER Cardio on board Continue Lasix 40mg IV BID Spironolactone 12.5 mg added Continue I/O Will repeat CXR in am Will monitor BMP while on IV Lasix Acute Chronic hypercapnic respiratory failure Obstructive sleep apnea of adult Possible COPD exacerbation Received IV solumedrol in the ER Continue Prednisone 20mg daily for possible COPD exacerbation for 5 days Will change Augmentin to Doxycycline Will do BIPA/CPap during sleep and prn HTN Not on any BP meds Continue monitor BP Tobacco abuse Counseling on smoking cessation On Nicotine patch PRN DVT prophylaxis per Lovenox subcu Full code Patient's requesting updates from providers. Mr. Jamal Tracy, contact #[phone]. Admission and Anticipated Discharge Date Admission Date: September 19, 2020 Subjective Pt was seen and examined for follow up of SOB Lying in bed with no acute distress She said that her breathing is getting better She said that she is hungry and would like to eat something Denies any chest pain, palpitation, dizziness and fever Review of Systems Review of Systems: All systems reviewed & are unremarkable except as noted in Subjective Physical Exam Physical Exam: General- No acute distress, sleepy Head- atraumatic Eyes- PERRL, EOMI, ENT- oropharynx clear Neck- supple, no JVD Lungs- +coarse BS Heart- regular rhythm; no murmur Abdomen- normal bowel sounds, soft, nontender Extremities- no calf tenderness, +edema Neuro- alert, oriented, PERRL, EOMI; no facial palsy; no dysarthria Skin- warm & dry Results & Data Results & Data ([facility]) Vital Signs (Past 12 Hours) Vital Signs Temp Pulse Pulse Pulse Resp BP Pulse Ox 09/20/20 12:00 36.5 C 95 H 18 147/77 H 92 09/20/20 11:38 83 23 96 09/20/20 08:00 36.7 C 83 18 150/94 H 99 09/20/20 07:40 86 24 98 09/20/20 07:36 86 24 98 09/20/20 07:34 88 09/20/20 03:55 36.1 C L 88 17 132/79 96 09/20/20 03:22 88 20 94 (1) Respiratory failure with hypoxia and hypercapnia Chronicity: acute on chronic Qualified Code(s): J96.21 - Acute and chronic respiratory failure with hypoxia; J96.22 - Acute and chronic respiratory failure with hypercapnia
[2020-09-20] MEDS: SPIRONOLACTONE 12.5 MG TAB PO SCH (14:13)
[2020-09-20] MEDS: UMECLIDINIUM/VILANTEROL 62.5/25MCG 7 PUFFS/INHALER INH SCH (14:13)
[2020-09-20] MEDS: predniSONE 20 MG TAB PO SCH (14:14)
[2020-09-20] MEDS: PANTOprazole 40 MG TAB PO SCH ×2 (14:15→20:59)
[2020-09-20] MEDS ORDERED: AZITHROMYCIN 250 MG TAB PO ONE (18:00)
[2020-09-20] MEDS ORDERED: DOXYCYCLINE HYCLATE 100 MG CAP PO SCH (21:00)
[2020-09-21] MEDS: LEVALBUTEROL 1.25MG/0.5ML NEB INH SCH ×4 (00:15→19:28)
[2020-09-21] MEDS: IPRATROPIUM BROMIDE NEB SOLN 0.02% 2.5 ML VIAL INH SCH ×4 (00:15→19:28)
[2020-09-21] MEDS: INSULIN ASPART 100 UNITS/ML 3 ML PEN SC SCH ×4 (08:07→21:21)
[2020-09-21] MEDS: FUROSEMIDE 40 MG in SYRINGE 0 ML IV SCH ×2 (08:54→17:05)
[2020-09-21] MEDS: INSULIN GLARGINE SOLOSTAR 100 UNITS/ML 3 ML PEN SC SCH ×2 (08:54→21:20)
[2020-09-21] MEDS: UMECLIDINIUM/VILANTEROL 62.5/25MCG 7 PUFFS/INHALER INH SCH (08:55)
[2020-09-21] MEDS: ENOXAPARIN INJ 40 MG/0.4 ML SYR SQ SCH (08:56)
[2020-09-21] MEDS: predniSONE 20 MG TAB PO SCH (08:57)
[2020-09-21] MEDS: AZITHROMYCIN 250 MG TAB PO SCH (08:57)
[2020-09-21] MEDS: PANTOprazole 40 MG TAB PO SCH ×2 (08:57→21:22)
[2020-09-21] MEDS: SPIRONOLACTONE 12.5 MG TAB PO SCH (08:57)
[2020-09-21] MEDS ORDERED: cefTRIAXone SODIUM 2,000 MG in DEXTROSE 5% 50 ML IV SCH (09:00)
--- NOTE | 2020-09-21 10:00 | Cardiology Progress Note ---
Date of Service September 21, 2020 Assessment & Plan (1) Respiratory failure with hypoxia and hypercapnia: (2) Acute on chronic heart failure with preserved ejection fraction (HFpEF): (3) Acute on chronic right-sided congestive heart failure: (4) Pulmonary emphysema: (5) Restrictive lung disease: (6) Pulmonary hypertension: (7) Cigarette smoker: Continue IV diuresis with Lasix 40 mg twice daily. Serum potassium trending upward slightly today. Continue low-dose Aldactone, 12.5 mg daily. Consider titration to 25 mg daily during hospitalization pending clinical course. Repeat basic metabolic panel in a.m. Follow daily weight, fluid balance, GFR, and electrolytes. BiPAP as needed for respiratory support. Smoking cessation strongly advised. Admission and Anticipated Discharge Date Admission Date: September 19, 2020 Subjective Patient seen and examined at the bedside. Fluid balance -5.5 L overnight. Respiratory status improved. Stable oxygen saturation off BiPAP. Patient notes cough with minimal sputum production and occasional wheezing. Denies orthopnea or paroxysmal nocturnal dyspnea currently. No chest discomfort or heaviness. Telemetry reveals sinus rhythm. Offers no other concerns/complaints at this time. Review of Systems Review of Systems: All systems reviewed & are unremarkable except as noted in Subjective Physical Exam Constitutional: + ill appearing and + obese; no acute distress Eyes: PERRL, conjunctivae normal, anicteric sclerae Respiratory: Auscultation: + rhonchi and + wheezes; no crackles and no rales Cardiovascular: Rate/Rhythm: regular rate and regular rhythm Heart Sounds: normal S1 and normal S2; no murmur Vessels: radial pulses present; no JVD and no carotid bruit Extremities: + edema (2+ pitting edema from her feet to the presacral region.) Gastrointestinal (Abdomen): Inspection/Auscultation: normal bowel sounds and + abdominal edema; abdomen not distended Percussion/Palpation: abdomen soft; abdomen nontender, no guarding and abdomen not rigid Neurologic: moves all extremities Motor/Sensory: no tremor Results & Data ([facility]) Vital Signs (Past 12 Hours) Vital Signs Temp Pulse Pulse Resp BP Pulse Ox 09/21/20 07:43 36.8 C 95 H 23 146/81 H 95 09/21/20 07:31 96 H 20 96 09/21/20 03:32 37.4 C 99 H 21 167/76 H 96 09/21/20 03:08 94 H 24 94 09/21/20 00:26 96 H 09/21/20 00:15 97 H 97 H 35 H 97 09/20/20 23:52 37.4 C 99 H 24 153/75 H 97 09/20/20 22:00 86 36 H 95 (1) Respiratory failure with hypoxia and hypercapnia Chronicity: acute on chronic Qualified Code(s): J96.21 - Acute and chronic respiratory failure with hypoxia; J96.22 - Acute and chronic respiratory failure with hypercapnia (2) Pulmonary emphysema Emphysema type: unspecified Qualified Code(s): J43.9 - Emphysema, unspecified
--- NOTE | 2020-09-21 13:36 | Electrocardiogram Report ---
Test Reason : Blood Pressure : / mmHG Vent. Rate : 093 BPM Atrial Rate : 093 BPM P-R Int : 170 ms QRS Dur : 096 ms QT Int : 376 ms P-R-T Axes : 070 127 068 degrees QTc Int : 467 ms Normal sinus rhythm Right axis deviation Abnormal ECG When compared with ECG of 19-SEP-2020 17:27, No significant change was found Confirmed by Elias Carson ([id number]) on 09/21/2020 1:36:32 PM Referred By: REFERRED SELF Confirmed By:Elias Carson
--- NOTE | 2020-09-21 14:30 | Pulmonology Progress Note ---
Date of Service September 21, 2020 Assessment & Plan (1) Acute on chronic respiratory failure with hypoxemia: Chest x-ray 09/19/2020 personally reviewed: Rotated to the right, bilateral costophrenic angles are blunted, increased cardiac silhouette, increased hilar markings, vascular congestion appreciated. --Acute on chronic hypoxic hypercapnic respiratory failure On 2 and half liters oxygen at home [id number] Multifactorial Component of COPD exacerbation Diastolic CHF also playing a major role along with NICK/OHS Continue with diuretics as tolerated to keep the patient negative balance BiPAP nightly and as needed shortness of breath, keep O2 saturation 88-92%. 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 At home patient is on Trelegy inhaler, would continue with the same when she is discharged Continue with azithromycin for total of 5 days. Recommend discontinuing Rocephin Please note the above document was generated using voice recognition software. It may contain grammatical, syntax or spelling errors.Any formal questions or concerns about the content, text or information contained within the body of this dictation should be directly addressed to the provider for clarification. (2) Acute on chronic heart failure with preserved ejection fraction (HFpEF): (3) Obstructive sleep apnea of adult: (4) Chronic hypercapnic respiratory failure: Admission and Anticipated Discharge Date Admission Date: September 19, 2020 Subjective Patient seen and examined at bedside. No acute distress, no adverse events overnight. Patient said that she is feeling better compared to when she came to the hospital. Denies any headache, no nausea or vomiting Good appetite. Denies any chest pain, no dizziness. Review of Systems Review of Systems: All systems reviewed & are unremarkable except as noted in Subjective Physical Exam Physical Exam: Constitutional: No acute distress HEENT: EOMI, PERRLA, ptosis of the left eye Respiratory system: Decreased air entry bilaterally, no wheeze, no rhonchi minimal crackles bilateral lower lobes CVS: S1-S2 positive, no murmurs or gallops Abdomen: Soft, nontender, nondistended, positive bowel sounds x4 Extremities: +2 pulses bilaterally radialis/ dorsalis pedis, no cyanosis, +2 pitting edema bilateral lower extremity, stasis dermatitis appreciated bilaterally Neuro: Awake alert oriented x3 Psych: Normal mood and affect G/U: Positive Nash Skin: no rashes, warm and dry Lymphatic: no cervical or axillary lymphadenopathy Results & Data Results & Data ([facility]) Vital Signs (Past 12 Hours) Vital Signs Temp Pulse Pulse Resp BP BP Pulse Ox 09/21/20 13:31 94 H 20 95 09/21/20 11:38 36.8 C 89 22 120/80 91 09/21/20 08:00 09/21/20 07:43 36.8 C 95 H 23 146/81 H 95 09/21/20 07:31 96 H 20 96 09/21/20 03:32 37.4 C 99 H 21 167/76 H 96 09/21/20 03:08 94 H 24 94 Pulse Ox 09/21/20 13:31 09/21/20 11:38 09/21/20 08:00 95 09/21/20 07:43 09/21/20 07:31 09/21/20 03:32 09/21/20 03:08 09/20/20 05:35 09/20/20 05:35 PG Care Time/CCT Total # of Minutes Spent Total Time Spent with Patient: Total time spent is greater than 50% in coordination of care (as documented) at patient's floor/unit and/or counseling patient: Coding Level of Care Code 89197 Subseq Hosp Care Lvl 3 Diagnoses Acute on chronic respiratory failure with hypoxemia J96.21 Acute on chronic heart failure with preserved ejection fraction (HFpEF) I50.33 Obstructive sleep apnea of adult G47.33 Chronic hypercapnic respiratory failure J96.12
--- NOTE | 2020-09-21 16:11 | Hospitalist Progress Note ---
Date of Service September 21, 2020 Assessment & Plan (1) Respiratory failure with hypoxia and hypercapnia: (2) Acute on chronic right-sided congestive heart failure: (3) Acute on chronic heart failure with preserved ejection fraction (HFpEF): Present on admission for SOB, weakness and fall CXR on admission showed evidence of congestive failure/fluid overload. Minor airspace opacities most pronounced at the lung bases likely representing focal edema although an infectious/inflammatory process could appear similar ProBNP elevated 4711 COVID 19, Influenza and RSV are negative Chronic CO2 retention on ABG with PCO2 62 on admission Echo showed the right ventricular cavity appears larger than the left ventricle cavity in the apical four-chamber view suggesting significant ventricular enlargement. ejection fraction 65 to 70%. No significant change compared to the prior echocardiogram Not compliant with Cpap Received IV lasix in the ER Cardio on board Continue Lasix 40mg IV BID and Spironolactone 12.5 mg daily, might increase to 25mg daily during hospital course Will repeat CXR in am Will monitor BMP while on IV Lasix and spironolactone Diuresis well, will continue monitor I/O Acute Chronic hypercapnic respiratory failure Obstructive sleep apnea of adult Possible COPD exacerbation Received IV solumedrol in the ER Pulmonology on board Continue Prednisone 20mg daily for possible COPD exacerbation for 3 more days Continue Zithromax Continue BIPA/CPap during sleep and prn UTI Urine cx grew Ecoli On IV Rocephin, will transition to PO abx HTN Not on any BP meds Continue monitor BP Tobacco abuse Counseling on smoking cessation On Nicotine patch PRN DVT prophylaxis per Lovenox subcu Full code Disposition Will discharge once medically stable Patient's requesting updates from providers. Mr. Jamal Tracy, contact #[phone]. Admission and Anticipated Discharge Date Admission Date: September 19, 2020 Subjective Pt was seen and examined for follow up of shortness of breath Sitting in chair with no distress Pt said that she feels much better She is asking about to go home Denies any chest pain, palpitation, dizziness and fever Physical Exam Physical Exam: General- No acute distress, sleepy Head- atraumatic Eyes- PERRL, EOMI, ENT- oropharynx clear Neck- supple, no JVD Lungs- +diminished BS Heart- regular rhythm; no murmur Abdomen- normal bowel sounds, soft, nontender Extremities- no calf tenderness, +edema Neuro- alert, oriented, PERRL, EOMI; no facial palsy; no dysarthria Skin- warm & dry Results & Data Results & Data ([facility]) Vital Signs (Past 12 Hours) Vital Signs Temp Pulse Resp BP BP Pulse Ox Pulse Ox 09/21/20 15:34 36.7 C 92 H 24 127/77 94 09/21/20 13:31 94 H 20 95 09/21/20 11:38 36.8 C 89 22 120/80 91 09/21/20 08:00 95 09/21/20 07:43 36.8 C 95 H 23 146/81 H 95 09/21/20 07:31 96 H 20 96 (1) Respiratory failure with hypoxia and hypercapnia Chronicity: acute on chronic Qualified Code(s): J96.21 - Acute and chronic respiratory failure with hypoxia; J96.22 - Acute and chronic respiratory failure with hypercapnia
[2020-09-22] MEDS: LEVALBUTEROL 1.25MG/0.5ML NEB INH SCH ×3 (00:38→13:29)
[2020-09-22] MEDS: IPRATROPIUM BROMIDE NEB SOLN 0.02% 2.5 ML VIAL INH SCH ×3 (00:38→13:29)
[2020-09-22 06:32] LABS: Hematocrit (blood only) 46.7 % (37-47); Hemoglobin 14.3 g/dL (12.0-16.0); Mean Corpuscular Hemoglobin 24.5 pg (25-34); Mean Corpuscular Hgb Conc 30.6 g/dL (32-36); Mean Corpuscular Volume 80.1 fL (80-100); Mean Platelet Volume 9.7 fL (7.4-10.4); Platelet Count 350 K/uL (130-400); RDW Coefficient of Variation 21.3 % (11.5-14.5); RDW Standard Deviation 61.2 fL (36.4-46.3); Red Blood Count 5.83 M/uL (4.2-5.4); White Blood Count 10.93 K/uL (4.8-10.8)
[2020-09-22 07:04] LABS: BUN Creatinine Ratio 17.9 (10-20); Calcium 8.4 mg/dl (8.5-10.1); Creatinine Clr Calc Pharmacy 50.9 ml/min; Est GFR (African American) 57.2; Est GFR (Non-African American) 49.4; Potassium 3.6 mmol/L (3.5-5.1)
--- NOTE | 2020-09-22 07:39 | XRay Report ---
XR chest 1V portable HISTORY: Shortness of breath. COMPARISON: Chest 09/19/2020. FINDINGS: No significant change in the cardiomegaly, small bilateral pleural effusions, and diffuse i nterstitial/vascular thickening consistent with pulmonary edema. Patchy densities within the left maritza g base persist and favor atelectasis from the pleural effusion. A superimposed pneumonitis cannot be excluded. IMPRESSION: No change in the cardiomegaly, small bilateral pleural effusions, and pulmonary edema. Left basilar p atchy densities are also unchanged. ACT 112: Negative or not required by law. Electronically signed by: Arnol Sandra M.D. 09/22/2020 7:37 AM
[2020-09-22] MEDS: INSULIN ASPART 100 UNITS/ML 3 ML PEN SC SCH ×4 (08:06→20:45)
[2020-09-22] MEDS: UMECLIDINIUM/VILANTEROL 62.5/25MCG 7 PUFFS/INHALER INH SCH (08:17)
[2020-09-22] MEDS: cephALEXin 500 MG CAP PO SCH ×2 (08:21→20:43)
[2020-09-22] MEDS: SPIRONOLACTONE 12.5 MG TAB PO SCH (08:21)
[2020-09-22] MEDS: predniSONE 20 MG TAB PO SCH (08:22)
[2020-09-22] MEDS: ENOXAPARIN INJ 40 MG/0.4 ML SYR SQ SCH (08:22)
[2020-09-22] MEDS: AZITHROMYCIN 250 MG TAB PO SCH (08:22)
[2020-09-22] MEDS: PANTOprazole 40 MG TAB PO SCH ×2 (08:22→20:44)
[2020-09-22] MEDS: INSULIN GLARGINE SOLOSTAR 100 UNITS/ML 3 ML PEN SC SCH ×2 (08:45→20:44)
--- NOTE | 2020-09-22 12:09 | Cardiology Progress Note ---
Date of Service September 22, 2020 Assessment & Plan (1) Respiratory failure with hypoxia and hypercapnia: (2) Acute on chronic heart failure with preserved ejection fraction (HFpEF): (3) Acute on chronic right-sided congestive heart failure: (4) Pulmonary emphysema: (5) Restrictive lung disease: (6) Pulmonary hypertension: (7) Hypertension: (8) Cigarette smoker: Volume status improved with significant weight loss/diuresis since admission. Lab studies with signs of contraction and mild hyponatremia. Recommend hold intravenous diuretic therapy today. Continue low-dose Aldactone with repeat basic metabolic panel in a.m. Continue to follow daily weight, fluid balance, GFR, and electrolytes. Blood pressure elevated currently however labile throughout hospitalization. Continued observation recommended at this time. BiPAP as needed for respiratory support. Smoking cessation strongly advised. Admission and Anticipated Discharge Date Admission Date: September 19, 2020 Subjective Patient seen and examined the bedside. Respiratory status continues to improve. Edema improving as well. Fluid balance -5 L over the past 24 hours. Weight is down nearly 20 pounds since admission. Serum bicarbonate trending upward. Serum sodium trending downward. Creatinine remains relatively stable. Patient denies orthopnea, PND, palpitations, lightheadedness, or dizziness. Telemetry monitoring demonstrates sinus rhythm/sinus tachycardia. Review of Systems Review of Systems: All systems reviewed & are unremarkable except as noted in Subjective Physical Exam Constitutional: + ill appearing and + obese; no acute distress Eyes: PERRL, conjunctivae normal, anicteric sclerae Respiratory: Auscultation: + wheezes; no crackles, no rales and no rhonchi Cardiovascular: Rate/Rhythm: regular rate and regular rhythm Heart Sounds: normal S1 and normal S2; no murmur Vessels: radial pulses present; no JVD and no carotid bruit Extremities: + edema (2+ pitting edema from her feet to upper thigh bilaterally) Gastrointestinal (Abdomen): Inspection/Auscultation: normal bowel sounds and + abdominal edema; abdomen not distended Percussion/Palpation: abdomen soft; abdomen nontender, no guarding and abdomen not rigid Neurologic: moves all extremities Motor/Sensory: no tremor Results & Data ([facility]) Vital Signs (Past 12 Hours) Vital Signs Temp Pulse Pulse Resp BP BP Pulse Ox 09/22/20 11:54 36.6 C 99 H 18 161/82 H 94 09/22/20 08:08 37.0 C 108 H 20 164/95 H 93 09/22/20 07:12 105 H 20 94 09/22/20 04:30 36.5 C 102 H 20 164/91 H 94 09/22/20 00:39 95 H 20 92 (1) Respiratory failure with hypoxia and hypercapnia Chronicity: acute on chronic Qualified Code(s): J96.21 - Acute and chronic respiratory failure with hypoxia; J96.22 - Acute and chronic respiratory failure with hypercapnia (2) Pulmonary emphysema Emphysema type: unspecified Qualified Code(s): J43.9 - Emphysema, unspecified (3) Hypertension Hypertension type: essential hypertension Qualified Code(s): I10 - Essential (primary) hypertension
--- NOTE | 2020-09-22 13:45 | Pulmonology Progress Note ---
Date of Service September 22, 2020 Assessment & Plan (1) Acute on chronic respiratory failure with hypoxemia: Chest x-ray 09/19/2020 personally reviewed: Rotated to the right, bilateral costophrenic angles are blunted, increased cardiac silhouette, increased hilar markings, vascular congestion appreciated. --Acute on chronic hypoxic hypercapnic respiratory failure On 2 and half liters oxygen at home [id number] Multifactorial Component of COPD exacerbation Diastolic CHF also playing a major role along with NICK/OHS Continue with diuretics as tolerated to keep the patient negative balance BiPAP nightly and as needed shortness of breath, keep O2 saturation 88-92%. 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 Hold other antibiotics at that time. Currently patient is on Anoro inhaler. Continue with prednisone for 2 more days. Please allow the patient to use her home CPAP as she prefers that. Importance of using CPAP/BiPAP explained to the patient at night. Please note the above document was generated using voice recognition software. It may contain grammatical, syntax or spelling errors.Any formal questions or concerns about the content, text or information contained within the body of this dictation should be directly addressed to the provider for clarification. (2) Acute on chronic heart failure with preserved ejection fraction (HFpEF): (3) Obstructive sleep apnea of adult: (4) Chronic hypercapnic respiratory failure: Admission and Anticipated Discharge Date Admission Date: September 19, 2020 Subjective Patient seen and examined at bedside. No acute distress, no adverse events overnight. Shortness of breath is significantly improved as per the patient. No chest pain, no headache, no nausea or vomiting. Patient did not use her BiPAP overnight as she was not comfortable with mask Review of Systems Review of Systems: All systems reviewed & are unremarkable except as noted in Subjective Physical Exam Physical Exam: Constitutional: No acute distress HEENT: EOMI, PERRLA Respiratory system: Decreased air entry bilaterally, no wheeze, no rhonchi minimal crackles bilateral lower lobes CVS: S1-S2 positive, no murmurs or gallops Abdomen: Soft, nontender, nondistended, positive bowel sounds x4 Extremities: +2 pulses bilaterally radialis/ dorsalis pedis, no cyanosis, +2 pitting edema bilateral lower extremity, stasis dermatitis appreciated bilaterally Neuro: Awake alert oriented x3 Psych: Normal mood and affect G/U: Positive Nash Skin: no rashes, warm and dry Lymphatic: no cervical or axillary lymphadenopathy Results & Data Results & Data ([facility]) Vital Signs (Past 12 Hours) Vital Signs Temp Pulse Pulse Resp BP BP Pulse Ox 09/22/20 13:29 99 H 16 93 09/22/20 11:54 36.6 C 99 H 18 161/82 H 94 09/22/20 08:08 37.0 C 108 H 20 164/95 H 93 09/22/20 07:12 105 H 20 94 09/22/20 04:30 36.5 C 102 H 20 164/91 H 94 09/22/20 05:31 09/22/20 05:31 PG Care Time/CCT Total # of Minutes Spent Total Time Spent with Patient: Total time spent is greater than 50% in coordination of care (as documented) at patient's floor/unit and/or counseling patient: Coding Level of Care Code 55652 Subseq Hosp Care Lvl 3 Diagnoses Acute on chronic respiratory failure with hypoxemia J96.21 Acute on chronic heart failure with preserved ejection fraction (HFpEF) I50.33 Obstructive sleep apnea of adult G47.33 Chronic hypercapnic respiratory failure J96.12
[2020-09-22] MEDS ORDERED: IPRATROPIUM BROMIDE NEB SOLN 0.02% 2.5 ML VIAL INH PRN (15:02)
[2020-09-22] MEDS ORDERED: LEVALBUTEROL 1.25MG/0.5ML NEB INH PRN (15:03)
--- NOTE | 2020-09-22 17:35 | Hospitalist Progress Note ---
Date of Service September 22, 2020 Assessment & Plan (1) Respiratory failure with hypoxia and hypercapnia: (2) Acute on chronic right-sided congestive heart failure: (3) Acute on chronic heart failure with preserved ejection fraction (HFpEF): Present on admission for SOB, weakness and fall CXR on admission showed evidence of congestive failure/fluid overload. Minor airspace opacities most pronounced at the lung bases likely representing focal edema although an infectious/inflammatory process could appear similar ProBNP elevated 4711 COVID 19, Influenza and RSV are negative Chronic CO2 retention on ABG with PCO2 62 on admission Echo showed the right ventricular cavity appears larger than the left ventricle cavity in the apical four-chamber view suggesting significant ventricular enlargement. ejection fraction 65 to 70%. No significant change compared to the prior echocardiogram Not compliant with Cpap Received IV lasix in the ER Repeat CXR today showed No change in the cardiomegaly, small bilateral pleural effusions, and pulmonary edema. Left basilar patchy densities are also unchanged. Cardio on board On Lasix 40mg IV BID and Spironolactone 12.5 mg daily Diuresis well with 12L output Will hold on IV lasix today Will monitor BMP in AM and will reassess for additional diuretic as per cardiology Pulm recommended to use acetazolamide 250 mg twice daily for total of 6 doses for the metabolic alkalosis, might consider to add in am Acute Chronic hypercapnic respiratory failure Obstructive sleep apnea of adult Possible COPD exacerbation Received IV solumedrol in the ER Pulmonology on board Continue Prednisone 20mg daily for possible COPD exacerbation for 2 more days Continue Zithromax Continue BIPA/CPap during sleep and prn UTI Urine cx grew Ecoli Rocephin was transition to Keflex PO HTN Not on any BP meds Continue monitor BP Tobacco abuse Counseling on smoking cessation On Nicotine patch PRN DVT prophylaxis per Lovenox subcu Full code Disposition Will discharge once medically stable Patient's requesting updates from providers. Mr. Jamal Islascathleendanny, contact #[phone]. Updated provided to Jose Melendez today Admission and Anticipated Discharge Date Admission Date: September 19, 2020 Subjective Pt was seen and examined for follow up of CHF Sitting in chair with no distress Pt said that she feels much better She has been diuresis well She is very anxious to go home I spoke to Jose Melendez and provided with updates and answered all questions Denies any chest pain, palpitation, dizziness and SOB Physical Exam Physical Exam: General- No acute distress, sleepy Head- atraumatic Eyes- PERRL, EOMI, ENT- oropharynx clear Neck- supple, no JVD Lungs- +diminished BS Heart- regular rhythm; no murmur Abdomen- normal bowel sounds, soft, nontender Extremities- no calf tenderness, +edema Neuro- alert, oriented, PERRL, EOMI; no facial palsy; no dysarthria Skin- warm & dry Results & Data Results & Data ([facility]) Vital Signs (Past 12 Hours) Vital Signs Temp Pulse Pulse Resp BP BP Pulse Ox 09/22/20 15:30 37.3 C 89 16 144/85 H 92 09/22/20 13:29 99 H 16 93 09/22/20 11:54 36.6 C 99 H 18 161/82 H 94 09/22/20 08:08 37.0 C 108 H 20 164/95 H 93 09/22/20 07:12 105 H 20 94 (1) Respiratory failure with hypoxia and hypercapnia Chronicity: acute on chronic Qualified Code(s): J96.21 - Acute and chronic respiratory failure with hypoxia; J96.22 - Acute and chronic respiratory failure with hypercapnia
[2020-09-22] MEDS: traMADol HCL 50 MG TABLET PO PRN (20:54)
[2020-09-22] MEDS: MELATONIN 3 MG TAB PO PRN (20:55)
--- NOTE | 2020-09-23 03:56 | Communication Note ---
Date of Service: September 23, 2020 Made aware by RN of uncontrolled blood pressure. SBP 170 to 180s in early a.m. Patient comfortable as per RN. AP Hypertensive urgency Chronic diastolic heart failure Initiate low-dose cardioselective beta-kel Cautious titration given history of COPD. Will relay to AM provider.
[2020-09-23] MEDS: METOPROLOL TARTRATE 25 MG TAB PO SCH ×2 (04:35→20:31)
[2020-09-23 06:41] LABS: Calcium 8.7 mg/dl (8.5-10.1); Creatinine Clr Calc Pharmacy 72.8 ml/min; Est GFR (African American) 88.3; Est GFR (Non-African American) 76.2; Potassium 3.7 mmol/L (3.5-5.1)
[2020-09-23] MEDS: AZITHROMYCIN 250 MG TAB PO SCH (08:00)
[2020-09-23] MEDS: predniSONE 20 MG TAB PO SCH (08:00)
[2020-09-23] MEDS: ENOXAPARIN INJ 40 MG/0.4 ML SYR SQ SCH (08:00)
[2020-09-23] MEDS: cephALEXin 500 MG CAP PO SCH ×2 (08:00→20:30)
[2020-09-23] MEDS: PANTOprazole 40 MG TAB PO SCH ×2 (08:00→20:30)
[2020-09-23] MEDS: UMECLIDINIUM/VILANTEROL 62.5/25MCG 7 PUFFS/INHALER INH SCH (08:01)
[2020-09-23] MEDS: SPIRONOLACTONE 12.5 MG TAB PO SCH (08:01)
[2020-09-23] MEDS: INSULIN GLARGINE SOLOSTAR 100 UNITS/ML 3 ML PEN SC SCH ×2 (08:03→20:46)
[2020-09-23] MEDS: INSULIN ASPART 100 UNITS/ML 3 ML PEN SC SCH ×4 (08:03→20:47)
--- NOTE | 2020-09-23 08:12 | Hospitalist Progress Note ---
Date of Service September 23, 2020 Assessment & Plan (1) Respiratory failure with hypoxia and hypercapnia: (2) Acute on chronic right-sided congestive heart failure: (3) Acute on chronic heart failure with preserved ejection fraction (HFpEF): Present on admission for SOB, weakness and fall CXR on admission showed evidence of congestive failure/fluid overload. Minor airspace opacities most pronounced at the lung bases likely representing focal edema although an infectious/inflammatory process could appear similar ProBNP elevated 4711 COVID 19, Influenza and RSV are negative Chronic CO2 retention on ABG with PCO2 62 on admission Echo showed the right ventricular cavity appears larger than the left ventricle cavity in the apical four-chamber view suggesting significant ventricular enlargement. ejection fraction 65 to 70%. No significant change compared to the prior echocardiogram Not compliant with Cpap Received IV lasix in the ER Repeat CXR showed No change in the cardiomegaly, small bilateral pleural effusions, and pulmonary edema. Left basilar patchy densities are also unchanged. Cardio on board On Lasix 40mg IV BID and Spironolactone 12.5 mg daily Diuresis well with 12L output Will hold on IV lasix now, d/t contraction alkalosis Will monitor BMP in AM and will reassess for additional diuretic as per cardiology Pulm recommended to use acetazolamide 250 mg twice daily for total of 6 doses for the metabolic alkalosis, started Acute Chronic hypercapnic respiratory failure Obstructive sleep apnea of adult Possible COPD exacerbation Received IV solumedrol in the ER Pulmonology consulted Continue Prednisone 20mg daily for possible COPD exacerbation for 1 more day Continue Zithromax Continue BIPA/CPAP during sleep and prn UTI Urine cx grew Ecoli Rocephin was transition to Keflex PO HTN Not on any home BP meds Continue monitor BP metoprolol started while inpt Tobacco abuse Counseling on smoking cessation On Nicotine patch PRN DVT prophylaxis per Lovenox subcu Full code Disposition Will discharge once medically stable Patient's , Mr. Jamal Tracy, can be contacted at #[phone]. Son Al updated yesterday Admission and Anticipated Discharge Date Admission Date: September 19, 2020 Subjective Pt seen in follow up of acute on chronic resp. failure, acute on chronic CHF Currently sitting up in bed in NAD, on suppl. O2 Denies chest pain, incr. shortness of breath. Reports that she is feeling better and inquiring about going home Cont. to have some clear sputum, cont. to have edema Review of Systems Review of Systems: All systems reviewed & are unremarkable except as noted in HPI & below Constitutional: no fever and no chills Respiratory: + cough (occasional) and + dyspnea (improved) Cardiovascular: no chest pain and no palpitations Gastrointestinal: no abdominal pain, no nausea and no vomiting Physical Exam Physical Exam: General- obese female sitting up in bed, in no acute distress, on suppl. O2 Head- atraumatic Eyes- PERRL, EOMI ENT- oropharynx clear Neck- supple, no JVD Lungs- +diminished BS, + bibasilar crackles Heart- regular rhythm; no murmur Abdomen- normal bowel sounds, soft, nontender Extremities- no calf tenderness, +2 edema b/l, calf erythema noted c/w venous stasis dermatitis Neuro- alert, oriented, PERRL, EOMI; no facial palsy; no dysarthria Skin- warm & dry Results & Data Results & Data ([facility]) Vital Signs (Past 12 Hours) Vital Signs Temp Pulse Pulse Pulse Resp BP BP 09/23/20 07:44 36.7 C 78 18 131/66 09/23/20 05:37 97 H 153/82 H 09/23/20 03:51 36.7 C 97 H 22 189/104 H 176/104 H 09/23/20 00:47 82 30 H 09/23/20 00:35 91 H 09/23/20 00:10 36.8 C 90 20 129/74 Pulse Ox 09/23/20 07:44 98 09/23/20 05:37 09/23/20 03:51 93 09/23/20 00:47 92 09/23/20 00:35 09/23/20 00:10 91 Laboratory Results 09/23/20 09/23/20 09/22/20 Range/Units 07:27 05:58 20:30 Sodium 130 L (136-145) mmol/L Potassium 3.7 (3.5-5.1) mmol/L Chloride 86 L (98-107) mmol/L Carbon Dioxide 39 H (21-32) mmol/L Anion Gap 5.0 (3-11) BUN 16 (7-18) mg/dl Creatinine 0.81 D (0.6-1.2) mg/dl Est Cr Clr Drug Dosing 72.8 ml/min Est GFR ( Amer) 88.3 Est GFR (Non-Af Amer) 76.2 BUN/Creatinine Ratio 20.0 (10-20) Glucose 244 H (70-99) mg/dl POC Glucose 216 H 246 H (70-99) mg/dl Calcium 8.7 (8.5-10.1) mg/dl 09/22/20 09/22/20 Range/Units 16:35 11:36 Sodium (136-145) mmol/L Potassium (3.5-5.1) mmol/L Chloride (98-107) mmol/L Carbon Dioxide (21-32) mmol/L Anion Gap (3-11) BUN (7-18) mg/dl Creatinine (0.6-1.2) mg/dl Est Cr Clr Drug Dosing ml/min Est GFR ( Amer) Est GFR (Non-Af Amer) BUN/Creatinine Ratio (10-20) Glucose (70-99) mg/dl POC Glucose 250 H 243 H (70-99) mg/dl Calcium (8.5-10.1) mg/dl Medications Administered Current Inpatient Medications Acetaminophen (Acetaminophen 325 Mg Tab) 650 mg PO Q4H PRN PRN Reason: Pain or Fever Stop: 10/19/20 22:23 Azithromycin (Azithromycin 250 Mg Tab) 250 mg PO QAM TOM Stop: 09/24/20 09:01 Last Admin: 09/23/20 08:00 Dose: 250 mg Documented by: Cephalexin HCl (Cephalexin 500 Mg Cap) 500 mg PO BID [facility] Stop: 10/02/20 08:59 Last Admin: 09/23/20 08:00 Dose: 500 mg Documented by: Dextrose (Dextrose 50% 50 Ml Syringe) 25 - 50 ml IV UD PRN; Protocol PRN Reason: Hypoglycemia Protocol Stop: 10/19/20 22:23 Enoxaparin Sodium (Enoxaparin Inj 40 Mg/0.4 Ml Syr) 40 mg SQ QAM [facility] Stop: 10/20/20 08:59 Last Admin: 09/23/20 08:00 Dose: 40 mg Documented by: Glucagon (Glucagon For Inj 1 Mg Vial) 1 mg SQ UD PRN; Protocol PRN Reason: Hypoglycemia Protocol Stop: 10/19/20 22:23 Glucose (Glucose 10 Tabs/Tube) 4 - 8 tabs PO UD PRN; Protocol PRN Reason: Hypoglycemia Protocol Stop: 10/19/20 22:23 Glucose (Glucose 40% Gel 15 Gm Tube) 15 - 30 gm PO UD PRN; Protocol PRN Reason: Hypoglycemia Protocol Stop: 10/19/20 22:23 Promethazine HCl 12.5 mg/ (Sodium Chloride) 50.5 mls @ 202 mls/hr IV Q6H PRN PRN Reason: Nausea And Vomiting Stop: 10/19/20 22:23 Insulin Aspart (Insulin Aspart 100 Units/Ml 3 Ml Pen) 0 units SC ACHS [facility] Stop: 10/20/20 20:59 Last Admin: 09/23/20 08:03 Dose: 5 units Documented by: Insulin Glargine (Insulin Glargine Solostar 100 Units/Ml 3 Ml Pen) 10 units SC BID [facility] Stop: 10/20/20 08:59 Last Admin: 09/23/20 08:03 Dose: 10 units Documented by: Ipratropium [place] (Ipratropium [place] Neb Soln 0.02% 2.5 Ml Vial) 0.5 mg INH Q6R PRN PRN Reason: Shortness Of Breath Or Wheezing Stop: 10/20/20 00:59 Levalbuterol HCl (Levalbuterol 1.25mg/0.5ml Neb) 1.25 mg INH Q6R PRN PRN Reason: Shortness Of Breath Or Wheezing Stop: 10/20/20 00:59 Melatonin (Melatonin 3 Mg Tab) 3 mg PO HS PRN PRN Reason: Sleep Stop: 10/22/20 20:30 Last Admin: 09/22/20 20:55 Dose: 3 mg Documented by: Metoprolol Tartrate (Metoprolol Tartrate 25 Mg Tab) 12.5 mg PO BID [facility] Stop: 10/23/20 03:54 Last Admin: 09/23/20 04:35 Dose: 12.5 mg Documented by: Miscellaneous (Carbohydrates For Hypoglycemia ) 15 - 30 gm PO UD PRN PRN Reason: Hypoglycemia Protocol Stop: 10/19/20 22:23 Miscellaneous (Remove Nicoderm Patch) 1 ea N/A DAILY@[id number] [facility] Stop: 10/23/20 08:58 Last Admin: 09/23/20 08:02 Dose: Not Given Documented by: Nicotine (Nicotine 7 Mg/24 Hr Tdsy) 7 mg TD QAM PRN PRN Reason: smoking Stop: 10/22/20 19:14 Pantoprazole Sodium (Pantoprazole 40 Mg Tab) 40 mg PO BID TOM Stop: 10/19/20 22:23 Last Admin: 09/23/20 08:00 Dose: 40 mg Documented by: Prednisone (Prednisone 20 Mg Tab) 20 mg PO DAILY TOM Stop: 09/24/20 08:59 Last Admin: 09/23/20 08:00 Dose: 20 mg Documented by: Spironolactone (Spironolactone 12.5 Mg Tab) 12.5 mg PO DAILY TOM Stop: 10/20/20 11:29 Last Admin: 09/23/20 08:01 Dose: 12.5 mg Documented by: Tramadol HCl (Tramadol Hcl 50 Mg Tablet) 25 - 50 mg PO Q4H PRN PRN Reason: Pain Stop: 10/19/20 22:23 Last Admin: 09/22/20 20:54 Dose: 50 mg Documented by: Umeclidinium/Vilanterol (Umeclidinium/Vilanterol 62.5/25mcg 7 Puffs/Inhaler) 1 puffs INH DAILY TOM Stop: 10/20/20 12:44 Last Admin: 09/23/20 08:01 Dose: 1 puffs Documented by: (1) Respiratory failure with hypoxia and hypercapnia Chronicity: acute on chronic Qualified Code(s): J96.21 - Acute and chronic respiratory failure with hypoxia; J96.22 - Acute and chronic respiratory failure with hypercapnia
[2020-09-23] MEDS ORDERED: POTASSIUM CHLORIDE CRTAB 20 MEQ TABCR PO ONE (08:30)
[2020-09-23 09:00] LABS: Magnesium 1.4 mg/dl (1.8-2.4); Phosphorus 3.3 mg/dl (2.5-4.9)
[2020-09-23] MEDS: MAGNESIUM SULFATE / D5W 1 GM/100 ML BAG IV SCH ×2 (09:30→11:25)
[2020-09-23] MEDS: NICOTINE 7 MG/24 HR TDSY TD PRN (09:30)
[2020-09-23] MEDS: acetaZOLAMIDE 250 MG TAB PO SCH ×2 (09:30→20:30)
--- NOTE | 2020-09-23 09:30 | Pulmonology Progress Note ---
Date of Service September 23, 2020 Assessment & Plan (1) Acute on chronic respiratory failure with hypoxemia: Chest x-ray 09/19/2020 personally reviewed: Rotated to the right, bilateral costophrenic angles are blunted, increased cardiac silhouette, increased hilar markings, vascular congestion appreciated. --Acute on chronic hypoxic hypercapnic respiratory failure On 2 and half liters oxygen at home [id number] Multifactorial Component of COPD exacerbation Diastolic CHF also playing a major role along with NICK/OHS Continue with diuretics as tolerated to keep the patient negative balance BiPAP nightly and as needed shortness of breath, keep O2 saturation 88-92%. 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 Hold other diuretics at that time. Currently patient is on Anoro inhaler. Would recommend continuing the same at home. Recommend stopping prednisone tomorrow. Please note the above document was generated using voice recognition software. It may contain grammatical, syntax or spelling errors.Any formal questions or concerns about the content, text or information contained within the body of this dictation should be directly addressed to the provider for clarification. (2) Acute on chronic heart failure with preserved ejection fraction (HFpEF): (3) Obstructive sleep apnea of adult: (4) Chronic hypercapnic respiratory failure: Admission and Anticipated Discharge Date Admission Date: September 19, 2020 Subjective Patient seen and examined at bedside. No acute distress, no adverse events overnight. Used BiPAP all night. Shortness of breath has improved. She does complain of some cough bringing up clear phlegm. Denies any hemoptysis. Denies any chest pain. No headache, no blurry vision. Review of Systems Review of Systems: All systems reviewed & are unremarkable except as noted in Subjective Physical Exam Physical Exam: Constitutional: No acute distress HEENT: EOMI, PERRLA Respiratory system: Decreased air entry bilaterally, no wheeze, no rhonchi, crackles bilateral lower lobes and left anteriorly CVS: S1-S2 positive, no murmurs or gallops Abdomen: Soft, nontender, nondistended, positive bowel sounds x4, obese Extremities: +2 pulses bilaterally radialis/ dorsalis pedis, no cyanosis, +1 pitting edema bilateral lower extremity, stasis dermatitis appreciated bilaterally Neuro: Awake alert oriented x3 Psych: Normal mood and affect G/U: Positive Nash Skin: no rashes, warm and dry Lymphatic: no cervical or axillary lymphadenopathy Results & Data Results & Data ([facility]) Vital Signs (Past 12 Hours) Vital Signs Temp Pulse Pulse Pulse Resp BP BP 09/23/20 08:00 91 H 09/23/20 07:44 36.7 C 78 18 131/66 09/23/20 05:37 97 H 153/82 H 09/23/20 03:51 36.7 C 97 H 22 189/104 H 176/104 H 09/23/20 00:47 82 30 H 09/23/20 00:35 91 H 09/23/20 00:10 36.8 C 90 20 129/74 Pulse Ox 09/23/20 08:00 09/23/20 07:44 98 09/23/20 05:37 09/23/20 03:51 93 09/23/20 00:47 92 09/23/20 00:35 09/23/20 00:10 91 09/22/20 05:31 09/23/20 05:58 LVH PG Care Time/CCT Total # of Minutes Spent Total Time Spent with Patient: Total time spent is greater than 50% in coordination of care (as documented) at patient's floor/unit and/or counseling patient: Coding Level of Care Code 23049 Subseq Hosp Care Lvl 3 Diagnoses Acute on chronic respiratory failure with hypoxemia J96.21 Acute on chronic heart failure with preserved ejection fraction (HFpEF) I50.33 Obstructive sleep apnea of adult G47.33 Chronic hypercapnic respiratory failure J96.12
--- NOTE | 2020-09-23 13:15 | Cardiology Progress Note ---
Date of Service September 23, 2020 Assessment & Plan (1) Respiratory failure with hypoxia and hypercapnia: (2) Acute on chronic heart failure with preserved ejection fraction (HFpEF): (3) Acute on chronic right-sided congestive heart failure: (4) Pulmonary emphysema: (5) Restrictive lung disease: (6) Pulmonary hypertension: (7) Hypertension: (8) Cigarette smoker: Volume status improved with significant weight loss/diuresis since admission. Lab studies with signs of contraction and mild hyponatremia. Elevated bicarbonate is compensatory given patient's chronic hypercapnia/respiratory acidosis however, exacerbated by aggressive diuresis since admission. Acetazolamide ordered by pulmonary medicine. Recommend close monitoring for worsening acidosis (with chronic CO2 retention) and laboratory follow-up of serum bicarbonate/electrolytes with low threshold for discontinuation. Continue low-dose Aldactone with repeat basic metabolic panel in a.m. Continue to follow daily weight, and fluid balance. BiPAP as needed for respiratory support. Smoking cessation strongly advised. Admission and Anticipated Discharge Date Admission Date: September 19, 2020 Subjective Patient seen and examined the bedside. Respiratory status improved. Edema unchanged. Fluid balance -694 cc overnight. Denies chest pain, palpitations, orthopnea, or PND. Telemetry reveals sinus rhythm with an average heart rate of 90-95 bpm. Review of Systems Review of Systems: All systems reviewed & are unremarkable except as noted in Subjective Physical Exam Constitutional: + ill appearing and + obese; no acute distress Eyes: PERRL, conjunctivae normal, anicteric sclerae Respiratory: Auscultation: + crackles (Right base); no rales, no rhonchi and no wheezes Cardiovascular: Rate/Rhythm: regular rate and regular rhythm Heart Sounds: normal S1 and normal S2; no murmur Vessels: radial pulses present; no JVD and no carotid bruit Extremities: + edema (2+ pitting edema from her feet to upper thigh bilaterally) Gastrointestinal (Abdomen): Inspection/Auscultation: normal bowel sounds and + abdominal edema; abdomen not distended Percussion/Palpation: abdomen soft; abdomen nontender, no guarding and abdomen not rigid Musculoskeletal: Extremities: + hand abnormality (Clubbing of the digits) Bilateral Neurologic: moves all extremities; no focal motor deficits Motor/Sensory: no tremor Results & Data ([facility]) Vital Signs (Past 12 Hours) Vital Signs Temp Pulse Pulse Pulse Resp BP BP 09/23/20 12:00 36.6 C 70 20 139/75 09/23/20 09:57 09/23/20 08:00 91 H 09/23/20 07:44 36.7 C 78 18 131/66 09/23/20 05:37 97 H 153/82 H 09/23/20 03:51 36.7 C 97 H 22 189/104 H 176/104 H Pulse Ox Pulse Ox Pulse Ox Pulse Ox 09/23/20 12:00 95 09/23/20 09:57 92 94 86 L 09/23/20 08:00 09/23/20 07:44 98 09/23/20 05:37 09/23/20 03:51 93 (1) Respiratory failure with hypoxia and hypercapnia Chronicity: acute on chronic Qualified Code(s): J96.21 - Acute and chronic respiratory failure with hypoxia; J96.22 - Acute and chronic respiratory failure with hypercapnia (2) Pulmonary emphysema Emphysema type: unspecified Qualified Code(s): J43.9 - Emphysema, unspecified (3) Hypertension Hypertension type: essential hypertension Qualified Code(s): I10 - Essential (primary) hypertension
[2020-09-23] MEDS: traMADol HCL 50 MG TABLET PO PRN (16:20)
[2020-09-23] MEDS ORDERED: INSULIN HUMAN REGULAR PER UNIT 4 UNITS in SYRINGE 3.96 ML IV ONE (21:00)
[2020-09-24] MEDS: MELATONIN 3 MG TAB PO PRN ×2 (03:26→20:19)
[2020-09-24] MEDS: traMADol HCL 50 MG TABLET PO PRN ×2 (03:26→20:18)
[2020-09-24 07:18] LABS: Basophils # (auto) 0.02 K/uL (0-0.2); Basophils % (auto) 0.2 %; Eosinophils # (auto) 0.19 K/uL (0-0.5); Eosinophils % (auto) 1.9 %; Hematocrit (blood only) 45.8 % (37-47); Hemoglobin 13.9 g/dL (12.0-16.0); Immature Granulocytes # (auto) 0.03 K/uL (0.00-0.02); Immature Granulocytes % (auto) 0.3 %; Lymphocytes # (auto) 1.38 K/uL (1.2-3.4); Lymphocytes % (auto) 13.6 %; Mean Corpuscular Hemoglobin 24.3 pg (25-34); Mean Corpuscular Hgb Conc 30.3 g/dL (32-36); Mean Corpuscular Volume 80.2 fL (80-100); Mean Platelet Volume 9.7 fL (7.4-10.4); Monocytes # (auto) 0.83 K/uL (0.11-0.59); Monocytes % (auto) 8.2 %; Neutrophils # (auto) 7.69 K/uL (1.4-6.5); Neutrophils % (auto) 75.8 %; Platelet Count 293 K/uL (130-400); RDW Coefficient of Variation 20.6 % (11.5-14.5); RDW Standard Deviation 60.4 fL (36.4-46.3); Red Blood Count 5.71 M/uL (4.2-5.4); White Blood Count 10.14 K/uL (4.8-10.8)
[2020-09-24 07:20] LABS: Base Excess ABG 7.2 mEq/L (-9-1.8); HCO3 ABG 33 mmol/L (19-24); Oxygen Saturation ABG 93.2 % (90-95); PCO2 ABG 53 mmHg (35-46); PO2 ABG 64 mmHg (80-95); pH ABG 7.42 (7.35-7.45)
[2020-09-24 07:24] LABS: Allen Test Pos (Pos)
[2020-09-24] MEDS: INSULIN ASPART 100 UNITS/ML 3 ML PEN SC SCH ×4 (07:42→20:27)
[2020-09-24] MEDS: cephALEXin 500 MG CAP PO SCH ×2 (07:42→20:18)
[2020-09-24 07:43] LABS: Anisocytosis Present
[2020-09-24] MEDS: PANTOprazole 40 MG TAB PO SCH ×2 (07:43→20:18)
[2020-09-24] MEDS: METOPROLOL TARTRATE 25 MG TAB PO SCH ×2 (07:43→20:18)
[2020-09-24] MEDS: SPIRONOLACTONE 12.5 MG TAB PO SCH (07:43)
[2020-09-24] MEDS: AZITHROMYCIN 250 MG TAB PO SCH (07:43)
[2020-09-24] MEDS: ENOXAPARIN INJ 40 MG/0.4 ML SYR SQ SCH (07:43)
[2020-09-24] MEDS: acetaZOLAMIDE 250 MG TAB PO SCH ×2 (07:43→20:18)
[2020-09-24] MEDS: UMECLIDINIUM/VILANTEROL 62.5/25MCG 7 PUFFS/INHALER INH SCH (07:44)
[2020-09-24 07:45] LABS: BUN Creatinine Ratio 20.3 (10-20); Calcium 8.9 mg/dl (8.5-10.1); Creatinine Clr Calc Pharmacy 66.7 ml/min; Est GFR (African American) 82.2; Est GFR (Non-African American) 70.9; Magnesium 1.9 mg/dl (1.8-2.4); Phosphorus 3.3 mg/dl (2.5-4.9); Potassium 3.8 mmol/L (3.5-5.1)
[2020-09-24] MEDS: NICOTINE 7 MG/24 HR TDSY TD PRN (08:14)
[2020-09-24] MEDS: INSULIN GLARGINE SOLOSTAR 100 UNITS/ML 3 ML PEN SC SCH ×2 (08:15→20:26)
--- NOTE | 2020-09-24 08:16 | Hospitalist Progress Note ---
Date of Service September 24, 2020 Assessment & Plan (1) Acute on chronic right-sided congestive heart failure: (2) Acute on chronic heart failure with preserved ejection fraction (HFpEF): Present on admission for SOB, weakness and fall CXR on admission showed evidence of congestive failure/fluid overload. Minor airspace opacities most pronounced at the lung bases likely representing focal edema although an infectious/inflammatory process could appear similar ProBNP elevated 4711 COVID 19, Influenza and RSV are negative Chronic CO2 retention on ABG with PCO2 62 on admission Echo showed the right ventricular cavity appears larger than the left ventricle cavity in the apical four-chamber view suggesting significant ventricular enlargement. ejection fraction 65 to 70%. No significant change compared to the prior echocardiogram Not compliant with Cpap Received IV lasix in the ER Repeat CXR showed No change in the cardiomegaly, small bilateral pleural effusions, and pulmonary edema. Left basilar patchy densities are also unchanged. Cardiology consulted and following On Lasix 40mg IV BID and Spironolactone 12.5 mg daily Diuresed well Hold IV lasix now, d/t contraction alkalosis Will monitor BMP in AM and will reassess for additional diuretic as per cardiology Pulm recommended to use acetazolamide 250 mg twice daily for total of 6 doses for the metabolic alkalosis, started Acute on Chronic hypercapnic and hypoxic respiratory failure Obstructive sleep apnea of adult Possible COPD exacerbation Received IV solumedrol in the ER Pulmonology consulted Continue Prednisone 20mg daily for possible COPD exacerbation for 1 more day Continue Zithromax Continue BIPA/CPAP during sleep and prn UTI Urine cx grew Ecoli Rocephin was transition to Keflex PO HTN Not on any home BP meds Continue monitor BP metoprolol started while inpt Tobacco abuse Counseling on smoking cessation On Nicotine patch PRN DVT prophylaxis per Lovenox subcu Full code Disposition Will discharge once medically stable Patient's , Mr. Jamal Tracy, can be contacted at #[phone]. Son Al can also be updated Admission and Anticipated Discharge Date Admission Date: September 19, 2020 Subjective Pt seen in follow up of acute on chronic resp. failure, acute on chronic CHF Overnight / early this AM, pt reportedly confused, ABG was obtained Per nursing staff pt does not use CPAP, only for about 1 hr overnight Currently sitting up in bed in NAD Denies chest pain, incr. shortness of breath. Reports that she is feeling better and inquiring about going home Cont. to have some clear sputum, cont. to have edema Review of Systems Review of Systems: All systems reviewed & are unremarkable except as noted in HPI & below As per HPI, all 10 systems reviewed, all other ROS negative Constitutional: no fever and no chills Respiratory: + cough (occasional) and + dyspnea (improved) Cardiovascular: no chest pain and no palpitations Gastrointestinal: no abdominal pain, no nausea and no vomiting Physical Exam Physical Exam: General- obese female sitting up in bed, in no acute distress, on suppl. O2 Head- atraumatic Eyes- PERRL, EOMI ENT- oropharynx clear Neck- supple, no JVD Lungs- +diminished BS, + bibasilar crackles Heart- regular rhythm; no murmur Abdomen- normal bowel sounds, soft, nontender Extremities- no calf tenderness, +1-2 edema b/l, calf erythema noted c/w venous stasis dermatitis Neuro- alert, oriented, PERRL, EOMI; no facial palsy; no dysarthria Skin- warm & dry Results & Data Results & Data ([facility]) Vital Signs (Past 12 Hours) Vital Signs Temp Pulse Pulse Pulse Resp BP Pulse Ox 09/24/20 08:00 82 09/24/20 07:44 36.8 C 81 16 152/71 H 96 09/24/20 03:56 36.8 C 86 20 161/95 H 94 09/24/20 01:30 80 25 H 93 09/23/20 23:13 36.4 C L 87 20 148/84 H 94 09/23/20 23:00 89 Laboratory Results 09/24/20 09/24/20 09/24/20 Range/Units 07:16 07:08 07:08 WBC 10.14 (4.8-10.8) K/uL RBC 5.71 H (4.2-5.4) M/uL Hgb 13.9 (12.0-16.0) g/dL Hct 45.8 (37-47) % MCV 80.2 (80-100) fL MCH 24.3 L (25-34) pg MCHC 30.3 L (32-36) g/dL RDW Std Deviation 60.4 H (36.4-46.3) fL RDW Coeff of Emiliano 20.6 H (11.5-14.5) % Plt Count 293 (130-400) K/uL MPV 9.7 (7.4-10.4) fL Immature Gran % (Auto) 0.3 % Neut % (Auto) 75.8 % Lymph % (Auto) 13.6 % [place] % (Auto) 8.2 % Eos % (Auto) 1.9 % Baso % (Auto) 0.2 % Neut # (Auto) 7.69 H (1.4-6.5) K/uL Lymph # (Auto) 1.38 (1.2-3.4) K/uL [place] # (Auto) 0.83 H (0.11-0.59) K/uL Eos # (Auto) 0.19 (0-0.5) K/uL Baso # (Auto) 0.02 (0-0.2) K/uL Immature Gran # (Auto) 0.03 H (0.00-0.02) K/uL Anisocytosis Present ABG pH 7.42 (7.35-7.45) ABG pCO2 53 H (35-46) mmHg ABG pO2 64 L (80-95) mmHg ABG HCO3 33 H (19-24) mmol/L ABG O2 Saturation 93.2 (90-95) % ABG Base Excess 7.2 H (-9-1.8) mEq/L Amauri Test Pos (Pos) Barometric Pressure 731.2 mm/Hg Oxygen Given 3 L Sodium (136-145) mmol/L Potassium (3.5-5.1) mmol/L Chloride (98-107) mmol/L Carbon Dioxide (21-32) mmol/L Anion Gap (3-11) BUN (7-18) mg/dl Creatinine (0.6-1.2) mg/dl Est Cr Clr Drug Dosing ml/min Est GFR ( Amer) Est GFR (Non-Af Amer) BUN/Creatinine Ratio (10-20) Glucose (70-99) mg/dl POC Glucose 205 H (70-99) mg/dl Calcium (8.5-10.1) mg/dl Phosphorus (2.5-4.9) mg/dl Magnesium (1.8-2.4) mg/dl 09/24/20 09/23/20 09/23/20 Range/Units 07:08 20:35 20:33 WBC (4.8-10.8) K/uL RBC (4.2-5.4) M/uL Hgb (12.0-16.0) g/dL Hct (37-47) % MCV (80-100) fL MCH (25-34) pg MCHC (32-36) g/dL RDW Std Deviation (36.4-46.3) fL RDW Coeff of Emiliano (11.5-14.5) % Plt Count (130-400) K/uL MPV (7.4-10.4) fL Immature Gran % (Auto) % Neut % (Auto) % Lymph % (Auto) % [place] % (Auto) % Eos % (Auto) % Baso % (Auto) % Neut # (Auto) (1.4-6.5) K/uL Lymph # (Auto) (1.2-3.4) K/uL [place] # (Auto) (0.11-0.59) K/uL Eos # (Auto) (0-0.5) K/uL Baso # (Auto) (0-0.2) K/uL Immature Gran # (Auto) (0.00-0.02) K/uL Anisocytosis ABG pH (7.35-7.45) ABG pCO2 (35-46) mmHg ABG pO2 (80-95) mmHg ABG HCO3 (19-24) mmol/L ABG O2 Saturation (90-95) % ABG Base Excess (-9-1.8) mEq/L [place] Test (Pos) Barometric Pressure mm/Hg Oxygen Given Sodium 130 L (136-145) mmol/L Potassium 3.8 (3.5-5.1) mmol/L Chloride 91 L (98-107) mmol/L Carbon Dioxide 32 (21-32) mmol/L Anion Gap 7.0 (3-11) BUN 17 (7-18) mg/dl Creatinine 0.86 (0.6-1.2) mg/dl Est Cr Clr Drug Dosing 66.7 ml/min Est GFR ( Amer) 82.2 Est GFR (Non-Af Amer) 70.9 BUN/Creatinine Ratio 20.3 H (10-20) Glucose 231 H (70-99) mg/dl POC Glucose 303 H* 313 H* (70-99) mg/dl Calcium 8.9 (8.5-10.1) mg/dl Phosphorus 3.3 (2.5-4.9) mg/dl Magnesium 1.9 (1.8-2.4) mg/dl 09/23/20 09/23/20 09/23/20 Range/Units 16:08 11:15 05:58 WBC (4.8-10.8) K/uL RBC (4.2-5.4) M/uL Hgb (12.0-16.0) g/dL Hct (37-47) % MCV (80-100) fL MCH (25-34) pg MCHC (32-36) g/dL RDW Std Deviation (36.4-46.3) fL RDW Coeff of Emiliano (11.5-14.5) % Plt Count (130-400) K/uL MPV (7.4-10.4) fL Immature Gran % (Auto) % Neut % (Auto) % Lymph % (Auto) % [place] % (Auto) % Eos % (Auto) % Baso % (Auto) % Neut # (Auto) (1.4-6.5) K/uL Lymph # (Auto) (1.2-3.4) K/uL [place] # (Auto) (0.11-0.59) K/uL Eos # (Auto) (0-0.5) K/uL Baso # (Auto) (0-0.2) K/uL Immature Gran # (Auto) (0.00-0.02) K/uL Anisocytosis ABG pH (7.35-7.45) ABG pCO2 (35-46) mmHg ABG pO2 (80-95) mmHg ABG HCO3 (19-24) mmol/L ABG O2 Saturation (90-95) % ABG Base Excess (-9-1.8) mEq/L Amauri Test (Pos) Barometric Pressure mm/Hg Oxygen Given Sodium (136-145) mmol/L Potassium (3.5-5.1) mmol/L Chloride (98-107) mmol/L Carbon Dioxide (21-32) mmol/L Anion Gap (3-11) BUN (7-18) mg/dl Creatinine (0.6-1.2) mg/dl Est Cr Clr Drug Dosing ml/min Est GFR ( Amer) Est GFR (Non-Af Amer) BUN/Creatinine Ratio (10-20) Glucose (70-99) mg/dl POC Glucose 230 H 199 H (70-99) mg/dl Calcium (8.5-10.1) mg/dl Phosphorus 3.3 (2.5-4.9) mg/dl Magnesium 1.4 L (1.8-2.4) mg/dl Medications Administered Current Inpatient Medications Acetaminophen (Acetaminophen 325 Mg Tab) 650 mg PO Q4H PRN PRN Reason: Pain or Fever Stop: 10/19/20 22:23 Acetazolamide (Acetazolamide 250 Mg Tab) 250 mg PO BID [facility] Stop: 10/23/20 08:59 Last Admin: 09/24/20 07:43 Dose: 250 mg Documented by: Azithromycin (Azithromycin 250 Mg Tab) 250 mg PO QAM [facility] Stop: 09/24/20 09:01 Last Admin: 09/24/20 07:43 Dose: 250 mg Documented by: Cephalexin HCl (Cephalexin 500 Mg Cap) 500 mg PO BID [facility] Stop: 10/02/20 08:59 Last Admin: 09/24/20 07:42 Dose: 500 mg Documented by: Dextrose (Dextrose 50% 50 Ml Syringe) 25 - 50 ml IV UD PRN; Protocol PRN Reason: Hypoglycemia Protocol Stop: 10/19/20 22:23 Enoxaparin Sodium (Enoxaparin Inj 40 Mg/0.4 Ml Syr) 40 mg SQ QAM [facility] Stop: 10/20/20 08:59 Last Admin: 09/24/20 07:43 Dose: 40 mg Documented by: Glucagon (Glucagon For Inj 1 Mg Vial) 1 mg SQ UD PRN; Protocol PRN Reason: Hypoglycemia Protocol Stop: 10/19/20 22:23 Glucose (Glucose 10 Tabs/Tube) 4 - 8 tabs PO UD PRN; Protocol PRN Reason: Hypoglycemia Protocol Stop: 10/19/20 22:23 Glucose (Glucose 40% Gel 15 Gm Tube) 15 - 30 gm PO UD PRN; Protocol PRN Reason: Hypoglycemia Protocol Stop: 10/19/20 22:23 Promethazine HCl 12.5 mg/ (Sodium Chloride) 50.5 mls @ 202 mls/hr IV Q6H PRN PRN Reason: Nausea And Vomiting Stop: 10/19/20 22:23 Insulin Aspart (Insulin Aspart 100 Units/Ml 3 Ml Pen) 0 units SC ACHS [facility] Stop: 10/20/20 20:59 Last Admin: 09/24/20 07:42 Dose: 13 units Documented by: Insulin Glargine (Insulin Glargine Solostar 100 Units/Ml 3 Ml Pen) 10 units SC BID [facility] Stop: 10/20/20 08:59 Last Admin: 09/23/20 20:46 Dose: 10 units Documented by: Ipratropium [place] (Ipratropium [place] Neb Soln 0.02% 2.5 Ml Vial) 0.5 mg INH Q6R PRN PRN Reason: Shortness Of Breath Or Wheezing Stop: 10/20/20 00:59 Levalbuterol HCl (Levalbuterol 1.25mg/0.5ml Neb) 1.25 mg INH Q6R PRN PRN Reason: Shortness Of Breath Or Wheezing Stop: 10/20/20 00:59 Melatonin (Melatonin 3 Mg Tab) 3 mg PO HS PRN PRN Reason: Sleep Stop: 10/22/20 20:30 Last Admin: 09/24/20 03:26 Dose: 3 mg Documented by: Metoprolol Tartrate (Metoprolol Tartrate 25 Mg Tab) 12.5 mg PO BID [facility] Stop: 10/23/20 03:54 Last Admin: 09/24/20 07:43 Dose: 12.5 mg Documented by: Miscellaneous (Carbohydrates For Hypoglycemia ) 15 - 30 gm PO UD PRN PRN Reason: Hypoglycemia Protocol Stop: 10/19/20 22:23 Miscellaneous (Remove Nicoderm Patch) 1 ea N/A DAILY@0859 [facility] Stop: 10/23/20 08:58 Last Admin: 09/23/20 08:02 Dose: Not Given Documented by: Nicotine (Nicotine 7 Mg/24 Hr Tdsy) 7 mg TD QAM PRN PRN Reason: smoking Stop: 10/22/20 19:14 Last Admin: 09/23/20 09:30 Dose: 7 mg Documented by: Pantoprazole Sodium (Pantoprazole 40 Mg Tab) 40 mg PO BID [facility] Stop: 10/19/20 22:23 Last Admin: 09/24/20 07:43 Dose: 40 mg Documented by: Prednisone (Prednisone 20 Mg Tab) 20 mg PO DAILY [facility] Stop: 09/24/20 08:59 Last Admin: 09/23/20 08:00 Dose: 20 mg Documented by: Spironolactone (Spironolactone 12.5 Mg Tab) 12.5 mg PO DAILY TOM Stop: 10/20/20 11:29 Last Admin: 09/24/20 07:43 Dose: 12.5 mg Documented by: Tramadol HCl (Tramadol Hcl 50 Mg Tablet) 25 - 50 mg PO Q4H PRN PRN Reason: Pain Stop: 10/19/20 22:23 Last Admin: 09/24/20 03:26 Dose: 50 mg Documented by: Umeclidinium/Vilanterol (Umeclidinium/Vilanterol 62.5/25mcg 7 Puffs/Inhaler) 1 puffs INH DAILY TOM Stop: 10/20/20 12:44 Last Admin: 09/24/20 07:44 Dose: 1 puffs Documented by:
[2020-09-24] MEDS ORDERED: INSULIN GLARGINE SOLOSTAR 100 UNITS/ML 3 ML PEN SC ONE (09:00)
--- NOTE | 2020-09-24 09:17 | Pulmonology Progress Note ---
Date of Service September 24, 2020 Assessment & Plan (1) Acute on chronic respiratory failure with hypoxemia: Chest x-ray 09/19/2020 personally reviewed: Rotated to the right, bilateral costophrenic angles are blunted, increased cardiac silhouette, increased hilar markings, vascular congestion appreciated. --Acute on chronic hypoxic hypercapnic respiratory failure On 2 and half liters oxygen at home [id number] Multifactorial Component of COPD exacerbation Diastolic CHF also playing a major role along with NICK/OHS Continue with diuretics as tolerated to keep the patient negative balance BiPAP nightly and as needed shortness of breath, keep O2 saturation 88-92%. 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 If the bicarb tomorrow is less than 30, recommend discontinuing acetazolamide. Currently patient is on Anoro inhaler. Would recommend continuing the same at home. Off prednisone No further recommendations from pulmonary perspective. Please recall if needed. Please note the above document was generated using voice recognition software. It may contain grammatical, syntax or spelling errors.Any formal questions or concerns about the content, text or information contained within the body of this dictation should be directly addressed to the provider for clarification. (2) Acute on chronic heart failure with preserved ejection fraction (HFpEF): (3) Obstructive sleep apnea of adult: (4) Chronic hypercapnic respiratory failure: Admission and Anticipated Discharge Date Admission Date: September 19, 2020 Subjective Patient seen and examined at bedside. No acute distress, no adverse events overnight. Use CPAP all night. States that she is feeling better. Cough is decreased in intensity. Denies any chest pain. No hemoptysis. Good appetite. No belly pain Review of Systems Review of Systems: All systems reviewed & are unremarkable except as noted in Subjective Physical Exam Physical Exam: Constitutional: No acute distress HEENT: EOMI, PERRLA Respiratory system: Decreased air entry bilaterally, no wheeze, no rhonchi, crackles bilateral lower lobes CVS: S1-S2 positive, no murmurs or gallops Abdomen: Soft, nontender, nondistended, positive bowel sounds x4, obese Extremities: +2 pulses bilaterally radialis/ dorsalis pedis, no cyanosis, +1 pitting edema bilateral lower extremity, stasis dermatitis appreciated bilaterally Neuro: Awake alert oriented x3 Psych: Normal mood and affect G/U: Positive [place] Skin: no rashes, warm and dry Lymphatic: no cervical or axillary lymphadenopathy Results & Data Results & Data ([facility]) Vital Signs (Past 12 Hours) Vital Signs Temp Pulse Pulse Pulse Resp BP Pulse Ox 09/24/20 08:00 82 09/24/20 07:44 36.8 C 81 16 152/71 H 96 09/24/20 03:56 36.8 C 86 20 161/95 H 94 09/24/20 01:30 80 25 H 93 09/23/20 23:13 36.4 C L 87 20 148/84 H 94 09/23/20 23:00 89 09/24/20 07:08 09/24/20 07:08 PG Care Time/CCT Total # of Minutes Spent Total Time Spent with Patient: Total time spent is greater than 50% in coordination of care (as documented) at patient's floor/unit and/or counseling patient: Coding Level of Care Code 83465 Subseq Hosp Care Lvl 3 Diagnoses Acute on chronic respiratory failure with hypoxemia J96.21 Acute on chronic heart failure with preserved ejection fraction (HFpEF) I50.33 Obstructive sleep apnea of adult G47.33 Chronic hypercapnic respiratory failure J96.12
--- NOTE | 2020-09-24 12:14 | Cardiology Progress Note ---
Date of Service September 24, 2020 Assessment & Plan (1) Respiratory failure with hypoxia and hypercapnia: (2) Acute on chronic heart failure with preserved ejection fraction (HFpEF): (3) Acute on chronic right-sided congestive heart failure: (4) Pulmonary emphysema: (5) Pulmonary hypertension: (6) Hypertension: (7) Hyponatremia: (8) Cigarette smoker: Volume status continues to improve with negative fluid balance. Patient prescribed acetazolamide by pulmonary medicine. Serum bicarbonate trending downward to 32mmol/L. ABG demonstrates normal pH. Likely discontinue acetazolamide in a.m. with resumption of Lasix. Continue Aldactone as previously ordered. Hyponatremia remains stable. Other electrolytes unchanged. Continue to follow daily weight, fluid balance, GFR, and electrolytes. BiPAP as needed for respiratory support. Smoking cessation strongly advised. Admission and Anticipated Discharge Date Admission Date: September 19, 2020 Subjective Patient seen and examined the bedside. Denies chest pain or unusual shortness of breath. Edema unchanged. Fluid balance -1350 cc overnight. Denies chest pain, palpitations, lightheadedness, or dizziness. Anxious for discharge. Offers no additional concerns/complaints. Review of Systems Review of Systems: All systems reviewed & are unremarkable except as noted in HPI & below Physical Exam Constitutional: + ill appearing and + obese; no acute distress Eyes: PERRL, conjunctivae normal, anicteric sclerae Respiratory: Auscultation: + crackles (Right base); no rales, no rhonchi and no wheezes Cardiovascular: Rate/Rhythm: regular rate and regular rhythm Heart Sounds: normal S1 and normal S2; no murmur Vessels: radial pulses present; no JVD and no carotid bruit Extremities: + edema (2+ pitting edema from her feet to upper thigh bilaterally) Gastrointestinal (Abdomen): Inspection/Auscultation: normal bowel sounds and + abdominal edema; abdomen not distended Percussion/Palpation: abdomen soft; abdomen nontender, no guarding and abdomen not rigid Musculoskeletal: Extremities: + hand abnormality (Clubbing of the digits) Neurologic: moves all extremities; no focal motor deficits Motor/Sensory: no tremor Results & Data ([facility]) Vital Signs (Past 12 Hours) Vital Signs Temp Pulse Pulse Pulse Resp BP Pulse Ox 09/24/20 11:45 37.0 C 74 18 148/63 H 99 09/24/20 08:00 82 09/24/20 07:44 36.8 C 81 16 152/71 H 96 09/24/20 03:56 36.8 C 86 20 161/95 H 94 09/24/20 01:30 80 25 H 93 (1) Respiratory failure with hypoxia and hypercapnia Chronicity: acute on chronic Qualified Code(s): J96.21 - Acute and chronic respiratory failure with hypoxia; J96.22 - Acute and chronic respiratory failure with hypercapnia (2) Pulmonary emphysema Emphysema type: unspecified Qualified Code(s): J43.9 - Emphysema, unspecified (3) Hypertension Hypertension type: essential hypertension Qualified Code(s): I10 - Essential (primary) hypertension
[2020-09-24] MEDS: AMITRIPTYLINE HCL 100 MG TAB PO SCH (20:18)
[2020-09-25 07:32] LABS: BUN Creatinine Ratio 27.5 (10-20); Calcium 8.6 mg/dl (8.5-10.1); Creatinine Clr Calc Pharmacy 70.9 ml/min; Est GFR (African American) 88.3; Est GFR (Non-African American) 76.2; Magnesium 1.9 mg/dl (1.8-2.4); Potassium 3.6 mmol/L (3.5-5.1)
[2020-09-25 07:35] LABS: Phosphorus 4.7 mg/dl (2.5-4.9)
[2020-09-25] MEDS ORDERED: POTASSIUM CHLORIDE CRTAB 20 MEQ TABCR PO STA (07:52)
--- NOTE | 2020-09-25 07:52 | Hospitalist Progress Note ---
Date of Service September 25, 2020 Assessment & Plan (1) Acute on chronic right-sided congestive heart failure: (2) Acute on chronic heart failure with preserved ejection fraction (HFpEF): Present on admission for SOB, weakness and fall CXR on admission showed evidence of congestive failure/fluid overload. Minor airspace opacities most pronounced at the lung bases likely representing focal edema although an infectious/inflammatory process could appear similar ProBNP elevated 4711 COVID 19, Influenza and RSV are negative Chronic CO2 retention on ABG with PCO2 62 on admission Echo showed the right ventricular cavity appears larger than the left ventricle cavity in the apical four-chamber view suggesting significant ventricular enlargement. ejection fraction 65 to 70%. No significant change compared to the prior echocardiogram Not compliant with Cpap Received IV lasix in the ER Repeat CXR showed No change in the cardiomegaly, small bilateral pleural effusions, and pulmonary edema. Left basilar patchy densities are also unchanged. Cardiology consulted and following On Lasix 40mg IV BID and Spironolactone 12.5 mg daily Diuresed well Hold IV lasix now, d/t contraction alkalosis Will monitor BMP in AM and will reassess for additional diuretic as per cardiology Pulm recommended to use acetazolamide 250 mg twice daily for the metabolic alkalosis, received several doses, d/c now Plan to continue w/ PO lasix 40 mg daily and spironolactone 12.5 mg daily Patient may take an additional 40 mg if weight increases more than 2 pounds in a 48-hour period, or 5 pounds in 1 week. Sodium restriction. Outpatient cardiology follow-up in 2 weeks. Acute on Chronic hypercapnic and hypoxic respiratory failure Obstructive sleep apnea of adult Possible COPD exacerbation Received IV solumedrol in the ER Pulmonology consulted Continue Prednisone 20mg daily for possible COPD exacerbation, finished Continue Zithromax Continue BIPA/CPAP during sleep and prn UTI Urine cx grew Ecoli Rocephin was transition to Keflex PO, finished course HTN Not on any home BP meds Continue monitor BP metoprolol started while inpt- will switch to succinate 25 mg daily on dc Tobacco abuse Counseling on smoking cessation On Nicotine patch PRN DVT prophylaxis per Lovenox subcu Full code Disposition Will discharge once medically stable, likely tmrw Patient's , Mr. Jamal Tracy, can be contacted at #[phone]. Son Al can also be updated Admission and Anticipated Discharge Date Admission Date: September 19, 2020 Subjective Pt seen in follow up of acute on chronic resp. failure, acute on chronic CHF Currently sitting up in bed in the chair in NAD Used CPAP about half of the night Denies chest pain, incr. shortness of breath. Reports that she is feeling better and inquiring about going home Updated , Jamal, over the phone last evening - he will encourage pt to use cpap Review of Systems Review of Systems: All systems reviewed & are unremarkable except as noted in HPI & below As per HPI, all 10 systems reviewed, all other ROS negative Constitutional: no fever and no chills Respiratory: + cough (occasional) and + dyspnea (improved) Cardiovascular: + edema; no chest pain and no palpitations Gastrointestinal: no abdominal pain, no nausea and no vomiting Physical Exam Physical Exam: General- obese female sitting up in bed, in no acute distress, on suppl. O2 Head- atraumatic Eyes- PERRL, EOMI ENT- oropharynx clear Neck- supple, no JVD Lungs- +diminished BS, + bibasilar crackles Heart- regular rhythm; no murmur Abdomen- normal bowel sounds, soft, nontender Extremities- no calf tenderness, +1 edema b/l, calf erythema noted c/w venous stasis dermatitis Neuro- alert, oriented, PERRL, EOMI; no facial palsy; no dysarthria Skin- warm & dry Results & Data Results & Data ([facility]) Vital Signs (Past 12 Hours) Vital Signs Temp Pulse Pulse Resp BP Pulse Ox 09/25/20 04:01 36.5 C 80 20 120/70 93 09/25/20 03:40 90 20 98 09/25/20 01:34 81 09/25/20 00:20 36.8 C 78 20 149/79 H 96 09/24/20 21:48 28 H Laboratory Results 09/25/20 09/24/20 09/24/20 Range/Units 06:32 20:22 16:23 Sodium 136 (136-145) mmol/L Potassium 3.6 (3.5-5.1) mmol/L Chloride 97 L (98-107) mmol/L Carbon Dioxide 33 H (21-32) mmol/L Anion Gap 6.0 (3-11) BUN 22 H (7-18) mg/dl Creatinine 0.81 (0.6-1.2) mg/dl Est Cr Clr Drug Dosing 70.9 ml/min Est GFR ( Amer) 88.3 Est GFR (Non-Af Amer) 76.2 BUN/Creatinine Ratio 27.5 H (10-20) Glucose 148 H (70-99) mg/dl POC Glucose 101 H 72 (70-99) mg/dl Calcium 8.6 (8.5-10.1) mg/dl Phosphorus 4.7 D (2.5-4.9) mg/dl Magnesium 1.9 (1.8-2.4) mg/dl 09/24/20 Range/Units 11:20 Sodium (136-145) mmol/L Potassium (3.5-5.1) mmol/L Chloride (98-107) mmol/L Carbon Dioxide (21-32) mmol/L Anion Gap (3-11) BUN (7-18) mg/dl Creatinine (0.6-1.2) mg/dl Est Cr Clr Drug Dosing ml/min Est GFR ( Amer) Est GFR (Non-Af Amer) BUN/Creatinine Ratio (10-20) Glucose (70-99) mg/dl POC Glucose 142 H (70-99) mg/dl Calcium (8.5-10.1) mg/dl Phosphorus (2.5-4.9) mg/dl Magnesium (1.8-2.4) mg/dl Medications Administered Current Inpatient Medications Acetaminophen (Acetaminophen 325 Mg Tab) 650 mg PO Q4H PRN PRN Reason: Pain or Fever Stop: 10/19/20 22:23 Acetazolamide (Acetazolamide 250 Mg Tab) 250 mg PO BID TOM Stop: 10/23/20 08:59 Last Admin: 09/24/20 20:18 Dose: 250 mg Documented by: Amitriptyline HCl (Amitriptyline Hcl 100 Mg Tab) 100 mg PO HS TOM Stop: 10/24/20 20:59 Last Admin: 09/24/20 20:18 Dose: 100 mg Documented by: Cephalexin HCl (Cephalexin 500 Mg Cap) 500 mg PO BID TOM Stop: 10/02/20 08:59 Last Admin: 09/24/20 20:18 Dose: 500 mg Documented by: Dextrose (Dextrose 50% 50 Ml Syringe) 25 - 50 ml IV UD PRN; Protocol PRN Reason: Hypoglycemia Protocol Stop: 10/19/20 22:23 Enoxaparin Sodium (Enoxaparin Inj 40 Mg/0.4 Ml Syr) 40 mg SQ QAM TOM Stop: 10/20/20 08:59 Last Admin: 09/24/20 07:43 Dose: 40 mg Documented by: Glucagon (Glucagon For Inj 1 Mg Vial) 1 mg SQ UD PRN; Protocol PRN Reason: Hypoglycemia Protocol Stop: 10/19/20 22:23 Glucose (Glucose 10 Tabs/Tube) 4 - 8 tabs PO UD PRN; Protocol PRN Reason: Hypoglycemia Protocol Stop: 10/19/20 22:23 Glucose (Glucose 40% Gel 15 Gm Tube) 15 - 30 gm PO UD PRN; Protocol PRN Reason: Hypoglycemia Protocol Stop: 10/19/20 22:23 Promethazine HCl 12.5 mg/ (Sodium Chloride) 50.5 mls @ 202 mls/hr IV Q6H PRN PRN Reason: Nausea And Vomiting Stop: 10/19/20 22:23 Insulin Aspart (Insulin Aspart 100 Units/Ml 3 Ml Pen) 0 units SC ACHS TOM Stop: 10/20/20 20:59 Last Admin: 09/24/20 20:27 Dose: Not Given Documented by: Insulin Glargine (Insulin Glargine Solostar 100 Units/Ml 3 Ml Pen) 15 units SC BID [facility] Stop: 10/24/20 20:59 Last Admin: 09/24/20 20:26 Dose: 15 units Documented by: Ipratropium [place]illi[place] (Ipratropium [place]illiant Neb Soln 0.02% 2.5 Ml Vial) 0.5 mg INH Q6R PRN PRN Reason: Shortness Of Breath Or Wheezing Stop: 10/20/20 00:59 Levalbuterol HCl (Levalbuterol 1.25mg/0.5ml Neb) 1.25 mg INH Q6R PRN PRN Reason: Shortness Of Breath Or Wheezing Stop: 10/20/20 00:59 Melatonin (Melatonin 3 Mg Tab) 3 mg PO HS PRN PRN Reason: Sleep Stop: 10/22/20 20:30 Last Admin: 09/24/20 20:19 Dose: 3 mg Documented by: Metoprolol Tartrate (Metoprolol Tartrate 25 Mg Tab) 12.5 mg PO BID TOM Stop: 10/23/20 03:54 Last Admin: 09/24/20 20:18 Dose: 12.5 mg Documented by: Miscellaneous (Carbohydrates For Hypoglycemia ) 15 - 30 gm PO UD PRN PRN Reason: Hypoglycemia Protocol Stop: 10/19/20 22:23 Miscellaneous (Remove Nicoderm Patch) 1 ea N/A DAILY@0859 [facility] Stop: 10/23/20 08:58 Last Admin: 09/24/20 08:14 Dose: 1 ea Documented by: Nicotine (Nicotine 7 Mg/24 Hr Tdsy) 7 mg TD QAM PRN PRN Reason: smoking Stop: 10/22/20 19:14 Last Admin: 09/24/20 08:14 Dose: 7 mg Documented by: Pantoprazole Sodium (Pantoprazole 40 Mg Tab) 40 mg PO BID [facility] Stop: 10/19/20 22:23 Last Admin: 09/24/20 20:18 Dose: 40 mg Documented by: Spironolactone (Spironolactone 12.5 Mg Tab) 12.5 mg PO DAILY [facility] Stop: 10/20/20 11:29 Last Admin: 09/24/20 07:43 Dose: 12.5 mg Documented by: Tramadol HCl (Tramadol Hcl 50 Mg Tablet) 25 - 50 mg PO Q4H PRN PRN Reason: Pain Stop: 10/19/20 22:23 Last Admin: 09/24/20 20:18 Dose: 50 mg Documented by: Umeclidinium/Vilanterol (Umeclidinium/Vilanterol 62.5/25mcg 7 Puffs/Inhaler) 1 puffs INH DAILY [facility] Stop: 10/20/20 12:44 Last Admin: 09/24/20 07:44 Dose: 1 puffs Documented by:
[2020-09-25] MEDS: SPIRONOLACTONE 12.5 MG TAB PO SCH (10:27)
[2020-09-25] MEDS: PANTOprazole 40 MG TAB PO SCH ×2 (10:28→20:20)
[2020-09-25] MEDS: ENOXAPARIN INJ 40 MG/0.4 ML SYR SQ SCH (10:28)
[2020-09-25] MEDS: METOPROLOL TARTRATE 25 MG TAB PO SCH ×2 (10:28→20:15)
[2020-09-25] MEDS: cephALEXin 500 MG CAP PO SCH ×2 (10:28→20:11)
[2020-09-25] MEDS: INSULIN ASPART 100 UNITS/ML 3 ML PEN SC SCH ×4 (10:29→20:13)
[2020-09-25] MEDS: INSULIN GLARGINE SOLOSTAR 100 UNITS/ML 3 ML PEN SC SCH ×2 (10:29→20:12)
[2020-09-25] MEDS: UMECLIDINIUM/VILANTEROL 62.5/25MCG 7 PUFFS/INHALER INH SCH (10:31)
[2020-09-25] MEDS: acetaZOLAMIDE 250 MG TAB PO SCH (12:38)
--- NOTE | 2020-09-25 12:51 | Cardiology Progress Note ---
Date of Service September 25, 2020 Assessment & Plan (1) Respiratory failure with hypoxia and hypercapnia: (2) Acute on chronic heart failure with preserved ejection fraction (HFpEF): (3) Acute on chronic right-sided congestive heart failure: (4) Pulmonary emphysema: (5) Pulmonary hypertension: (6) Hypertension: (7) Hyponatremia: (8) Cigarette smoker: Volume status continues to improve with negative fluid balance. Consider discontinuation of acetazolamide with transition to oral furosemide 40 mg daily. Patient may take an additional 40 mg if weight increases more than 2 pounds in a 48-hour period, or 5 pounds in 1 week. Continue low-dose Aldactone, 12.5 mg daily. Sodium restriction advised. Continue to follow fluid balance, GFR, and daily weight during hospitalization. Metoprolol tartrate may be transition to metoprolol succinate 25 mg daily at discharge. BiPAP as needed for respiratory support. Smoking cessation strongly advised. No further inpatient cardiac testing or intervention at this time. Outpatient cardiology follow-up in 2 weeks. Admission and Anticipated Discharge Date Admission Date: September 19, 2020 Subjective Patient seen and examined the bedside. Feeling well today. Requesting discharge if possible. Asymptomatic hypotension recorded this a.m. Renal function remains stable. Fluid balance negative an additional 1.8 L over the past 24 hours. Weight is down nearly 30 pounds since admission. Edema improved. Telemetry demonstrates sinus rhythm with heart rate ranging from 70- 80 bpm. No sustained dysrhythmias recorded. Review of Systems Review of Systems: All systems reviewed & are unremarkable except as noted in Subjective Physical Exam Constitutional: + ill appearing and + obese; no acute distress Eyes: PERRL, conjunctivae normal, anicteric sclerae Respiratory: Auscultation: + crackles (Right base); no rales, no rhonchi and no wheezes Cardiovascular: Rate/Rhythm: regular rate and regular rhythm Heart Sounds: normal S1 and normal S2; no murmur Vessels: radial pulses present; no JVD and no carotid bruit Extremities: + edema (1-2+ pitting edema of the thighs and buttocks bilaterally.) Gastrointestinal (Abdomen): Inspection/Auscultation: normal bowel sounds and + abdominal edema; abdomen not distended Percussion/Palpation: abdomen soft; abdomen nontender, no guarding and abdomen not rigid Musculoskeletal: Extremities: + hand abnormality (Clubbing of the digits) Neurologic: moves all extremities; no focal motor deficits Motor/Sensory: no tremor Results & Data ([facility]) Vital Signs (Past 12 Hours) Vital Signs Temp Pulse Pulse Resp BP Pulse Ox 09/25/20 12:02 36.6 C 75 16 90/53 L 98 09/25/20 11:06 82 09/25/20 07:57 36.6 C 85 18 132/63 95 09/25/20 04:01 36.5 C 80 20 120/70 93 09/25/20 03:40 90 20 98 09/25/20 01:34 81 (1) Respiratory failure with hypoxia and hypercapnia Chronicity: acute on chronic Qualified Code(s): J96.21 - Acute and chronic respiratory failure with hypoxia; J96.22 - Acute and chronic respiratory failure with hypercapnia (2) Pulmonary emphysema Emphysema type: unspecified Qualified Code(s): J43.9 - Emphysema, unspecified (3) Hypertension Hypertension type: essential hypertension Qualified Code(s): I10 - Essential (primary) hypertension
[2020-09-25] MEDS: AMITRIPTYLINE HCL 100 MG TAB PO SCH (20:11)
[2020-09-25] MEDS: MELATONIN 3 MG TAB PO PRN (20:24)
[2020-09-26 07:48] LABS: BUN Creatinine Ratio 26.7 (10-20); Calcium 9.1 mg/dl (8.5-10.1); Creatinine Clr Calc Pharmacy 59.8 ml/min; Est GFR (African American) 72.8; Est GFR (Non-African American) 62.9; Magnesium 1.9 mg/dl (1.8-2.4); Phosphorus 4.5 mg/dl (2.5-4.9); Potassium 3.9 mmol/L (3.5-5.1)
--- NOTE | 2020-09-26 07:49 | Hospitalist Progress Note ---
Date of Service September 26, 2020 Assessment & Plan (1) Acute on chronic right-sided congestive heart failure: (2) Acute on chronic heart failure with preserved ejection fraction (HFpEF): Present on admission for SOB, weakness and fall CXR on admission showed evidence of congestive failure/fluid overload. Minor airspace opacities most pronounced at the lung bases likely representing focal edema although an infectious/inflammatory process could appear similar ProBNP elevated 4711 COVID 19, Influenza and RSV are negative Chronic CO2 retention on ABG with PCO2 62 on admission Echo showed the right ventricular cavity appears larger than the left ventricle cavity in the apical four-chamber view suggesting significant ventricular enlargement. ejection fraction 65 to 70%. No significant change compared to the prior echocardiogram Not compliant with Cpap Received IV lasix in the ER Repeat CXR showed No change in the cardiomegaly, small bilateral pleural effusions, and pulmonary edema. Left basilar patchy densities are also unchanged. Cardiology consulted and following On Lasix 40mg IV BID and Spironolactone 12.5 mg daily Diuresed well Hold IV lasix now, d/t contraction alkalosis Pulm recommended to use acetazolamide 250 mg twice daily for the metabolic alkalosis, received several doses, d/c now Plan to continue w/ PO lasix 40 mg daily and spironolactone 12.5 mg daily Patient may take an additional 40 mg if weight increases more than 2 pounds in a 48-hour period, or 5 pounds in 1 week. Sodium restriction. Outpatient cardiology follow-up in 2 weeks. Acute on Chronic hypercapnic and hypoxic respiratory failure Obstructive sleep apnea of adult Possible COPD exacerbation Received IV solumedrol in the ER Pulmonology consulted Continue Prednisone 20mg daily for possible COPD exacerbation, finished Continued Zithromax Continue BIPA/CPAP during sleep and prn UTI Urine cx grew Ecoli Rocephin was transition to Keflex PO, finished course HTN Not on any home BP meds Continue monitor BP metoprolol started while inpt- switch to succinate 25 mg daily on dc Tobacco abuse Counseling on smoking cessation On Nicotine patch PRN DVT prophylaxis per Lovenox subcu Full code Disposition - plan to [place] home w/ HH Patient's , Mr. Jamal Tracy, can be contacted at #[phone]. He was updated over the phone and plan discussed in detail. Admission and Anticipated Discharge Date Admission Date: September 19, 2020 Subjective Pt seen in follow up of acute on chronic resp. failure, acute on chronic CHF Currently sitting up in the chair in NAD Denies chest pain, incr. shortness of breath. Reports that she is feeling better and inquiring about going home Review of Systems Review of Systems: All systems reviewed & are unremarkable except as noted in HPI & below As per HPI, all 10 systems reviewed, all other ROS negative Constitutional: no fever and no chills Respiratory: + cough (occasional) and + dyspnea (improved) Cardiovascular: + edema (improved); no chest pain and no palpitations Gastrointestinal: no abdominal pain, no nausea and no vomiting Physical Exam Physical Exam: General- obese female sitting up in bed, in no acute distress, on suppl. O2 Head- atraumatic Eyes- PERRL, EOMI ENT- oropharynx clear Neck- supple, no JVD Lungs- + mild bibasilar crackles, no wheezing Heart- regular rhythm; no murmur Abdomen- normal bowel sounds, soft, nontender Extremities- no calf tenderness, +1 edema b/l (much improved), calf erythema noted c/w venous stasis dermatitis Neuro- alert, oriented, PERRL, EOMI; no facial palsy; no dysarthria Skin- warm & dry Results & Data Results & Data ([facility]) Vital Signs (Past 12 Hours) Vital Signs Temp Pulse Pulse Resp BP BP Pulse Ox 09/26/20 07:32 88 09/26/20 07:25 36.7 C 78 16 117/71 98 09/26/20 03:48 36.7 C 76 18 97/62 L 09/25/20 23:30 37.1 C 77 20 112/70 94 Laboratory Results 09/26/20 09/26/20 09/26/20 Range/Units 11:19 07:12 06:51 Sodium 134 L (136-145) mmol/L Potassium 3.9 (3.5-5.1) mmol/L Chloride 97 L (98-107) mmol/L Carbon Dioxide 30 (21-32) mmol/L Anion Gap 7.0 (3-11) BUN 25 H (7-18) mg/dl Creatinine 0.95 (0.6-1.2) mg/dl Est Cr Clr Drug Dosing 59.8 ml/min Est GFR ( Amer) 72.8 Est GFR (Non-Af Amer) 62.9 BUN/Creatinine Ratio 26.7 H (10-20) Glucose 205 H (70-99) mg/dl POC Glucose 236 H 229 H (70-99) mg/dl Calcium 9.1 (8.5-10.1) mg/dl Phosphorus 4.5 (2.5-4.9) mg/dl Magnesium 1.9 (1.8-2.4) mg/dl 09/25/20 09/25/20 Range/Units 20:02 15:49 Sodium (136-145) mmol/L Potassium (3.5-5.1) mmol/L Chloride (98-107) mmol/L Carbon Dioxide (21-32) mmol/L Anion Gap (3-11) BUN (7-18) mg/dl Creatinine (0.6-1.2) mg/dl Est Cr Clr Drug Dosing ml/min Est GFR ( Amer) Est GFR (Non-Af Amer) BUN/Creatinine Ratio (10-20) Glucose (70-99) mg/dl POC Glucose 170 H 186 H (70-99) mg/dl Calcium (8.5-10.1) mg/dl Phosphorus (2.5-4.9) mg/dl Magnesium (1.8-2.4) mg/dl Medications Administered Current Inpatient Medications Acetaminophen (Acetaminophen 325 Mg Tab) 650 mg PO Q4H PRN PRN Reason: Pain or Fever Stop: 10/19/20 22:23 Amitriptyline HCl (Amitriptyline Hcl 100 Mg Tab) 100 mg PO HS [facility] Stop: 10/24/20 20:59 Last Admin: 09/25/20 20:11 Dose: 100 mg Documented by: Cephalexin HCl (Cephalexin 500 Mg Cap) 500 mg PO BID TOM Stop: 10/02/20 08:59 Last Admin: 09/26/20 08:29 Dose: 500 mg Documented by: Dextrose (Dextrose 50% 50 Ml Syringe) 25 - 50 ml IV UD PRN; Protocol PRN Reason: Hypoglycemia Protocol Stop: 10/19/20 22:23 Enoxaparin Sodium (Enoxaparin Inj 40 Mg/0.4 Ml Syr) 40 mg SQ QAM [facility] Stop: 10/20/20 08:59 Last Admin: 09/26/20 08:29 Dose: 40 mg Documented by: Furosemide (Furosemide 40 Mg Tab) 40 mg PO QAM [facility] Stop: 10/26/20 08:59 Last Admin: 09/26/20 08:28 Dose: 40 mg Documented by: Glucagon (Glucagon For Inj 1 Mg Vial) 1 mg SQ UD PRN; Protocol PRN Reason: Hypoglycemia Protocol Stop: 10/19/20 22:23 Glucose (Glucose 10 Tabs/Tube) 4 - 8 tabs PO UD PRN; Protocol PRN Reason: Hypoglycemia Protocol Stop: 10/19/20 22:23 Glucose (Glucose 40% Gel 15 Gm Tube) 15 - 30 gm PO UD PRN; Protocol PRN Reason: Hypoglycemia Protocol Stop: 10/19/20 22:23 Promethazine HCl 12.5 mg/ (Sodium Chloride) 50.5 mls @ 202 mls/hr IV Q6H PRN PRN Reason: Nausea And Vomiting Stop: 10/19/20 22:23 Insulin Aspart (Insulin Aspart 100 Units/Ml 3 Ml Pen) 0 units SC ACHS [facility] Stop: 10/20/20 20:59 Last Admin: 09/26/20 12:01 Dose: 13 units Documented by: Insulin Glargine (Insulin Glargine Solostar 100 Units/Ml 3 Ml Pen) 15 units SC BID [facility] Stop: 10/24/20 20:59 Last Admin: 09/26/20 08:29 Dose: 15 units Documented by: Ipratropium [place] (Ipratropium [place] Neb Soln 0.02% 2.5 Ml Vial) 0.5 mg INH Q6R PRN PRN Reason: Shortness Of Breath Or Wheezing Stop: 10/20/20 00:59 Levalbuterol HCl (Levalbuterol 1.25mg/0.5ml Neb) 1.25 mg INH Q6R PRN PRN Reason: Shortness Of Breath Or Wheezing Stop: 10/20/20 00:59 Melatonin (Melatonin 3 Mg Tab) 3 mg PO HS PRN PRN Reason: Sleep Stop: 10/22/20 20:30 Last Admin: 09/25/20 20:24 Dose: 3 mg Documented by: Metoprolol Tartrate (Metoprolol Tartrate 25 Mg Tab) 12.5 mg PO BID [facility] Stop: 10/23/20 03:54 Last Admin: 09/26/20 08:29 Dose: 12.5 mg Documented by: Miscellaneous (Carbohydrates For Hypoglycemia ) 15 - 30 gm PO UD PRN PRN Reason: Hypoglycemia Protocol Stop: 10/19/20 22:23 Miscellaneous (Remove Nicoderm Patch) 1 ea N/A DAILY@0859 [facility] Stop: 10/23/20 08:58 Last Admin: 09/26/20 08:38 Dose: 1 ea Documented by: Nicotine (Nicotine 7 Mg/24 Hr Tdsy) 7 mg TD QAM PRN PRN Reason: smoking Stop: 10/22/20 19:14 Last Admin: 09/24/20 08:14 Dose: 7 mg Documented by: Pantoprazole Sodium (Pantoprazole 40 Mg Tab) 40 mg PO BID [facility] Stop: 10/19/20 22:23 Last Admin: 09/26/20 08:29 Dose: 40 mg Documented by: Spironolactone (Spironolactone 12.5 Mg Tab) 12.5 mg PO DAILY [facility] Stop: 10/20/20 11:29 Last Admin: 09/26/20 08:29 Dose: 12.5 mg Documented by: Tramadol HCl (Tramadol Hcl 50 Mg Tablet) 25 - 50 mg PO Q4H PRN PRN Reason: Pain Stop: 10/19/20 22:23 Last Admin: 09/24/20 20:18 Dose: 50 mg Documented by: Umeclidinium/Vilanterol (Umeclidinium/Vilanterol 62.5/25mcg 7 Puffs/Inhaler) 1 puffs INH DAILY [facility] Stop: 10/20/20 12:44 Last Admin: 09/26/20 09:24 Dose: 1 puffs Documented by:
[2020-09-26] MEDS: cephALEXin 500 MG CAP PO SCH (08:29)
[2020-09-26] MEDS: METOPROLOL TARTRATE 25 MG TAB PO SCH (08:29)
[2020-09-26] MEDS: INSULIN GLARGINE SOLOSTAR 100 UNITS/ML 3 ML PEN SC SCH (08:29)
[2020-09-26] MEDS: ENOXAPARIN INJ 40 MG/0.4 ML SYR SQ SCH (08:29)
[2020-09-26] MEDS: SPIRONOLACTONE 12.5 MG TAB PO SCH (08:29)
[2020-09-26] MEDS: PANTOprazole 40 MG TAB PO SCH (08:29)
[2020-09-26] MEDS: INSULIN ASPART 100 UNITS/ML 3 ML PEN SC SCH ×2 (08:31→12:01)
[2020-09-26] MEDS ORDERED: FUROSEMIDE 40 MG TAB PO SCH (09:00)
[2020-09-26] MEDS: UMECLIDINIUM/VILANTEROL 62.5/25MCG 7 PUFFS/INHALER INH SCH (09:24)
--- NOTE | 2020-09-26 14:18 | Discharge Summary ---
Date of Service September 26, 2020 Admission HPI Per Admitting Provider History obtained from patient, family, and records. Medical history is significant for chronic right-sided heart failure (EF 70%, TTE 2018), COPD/RLD as per records, NICK (CPAP noncompliance), pulmonary hypertension, HTN, hyperlipidemia, hypothyroidism, DM 1, fibromyalgia, gastroparesis as per records, ongoing tobacco abuse. Last confinement October 2014 under General Surgery service for infected hernia mesh status post surgery. 1 week history of worsening shortness of breath. Worsening chronic cough symptoms productive of green-yellow sputum. Admits to some choking with meals/water intake. No known sick Covid 19 contacts. No chest pain. Increased fluid retention and about 40 pound weight gain in the last few months. Admits to dietary indiscretion. Patient not compliant with CPAP as per . Increasing generalized weakness. Patient brought to the ER for evaluation. Patient noted to be hypoxemic at the ER. BiPAP initiated at the ER. MEDICAL HISTORY: As above. SURGERIES: Endometrial ablation, hemorrhoidectomy with fissurectomy, hernia repair, appendectomy, right oophorectomy, VITOR FAMILY HISTORY: DM, stroke PERSONAL SOCIAL HISTORY: 1 pack daily, occasional EtOH intake, prior work as a [employer] Admission Exam Per Admitting Provider GENERAL: uncomfortable, obese, respiratory distress SKIN: Normal color, warm HEENT: [place] palpebral conjunctivae, no ptosis, dry buccal mucosa, BiPAP in place NECK : Supple, short neck, no tenderness CHEST : Decreased breath sounds, expiratory wheezes, no tenderness HEART : RRR, no obvious murmurs ABDOMEN: Some distention, nontender EXTREMITIES : LE venous stasis, no LE tenderness, no other conspicuous deformities noted NEUROLOGIC : Coherent, no facial asymmetry, no other gross focality Principal Diagnosis Acute on chronic respiratory failure Acute on chronic heart failure Discharge Exam General- obese female sitting up in bed, in no acute distress, on suppl. O2 Head- atraumatic Eyes- PERRL, EOMI ENT- oropharynx clear Neck- supple, no JVD Lungs- + mild bibasilar crackles, no wheezing Heart- regular rhythm; no murmur Abdomen- normal bowel sounds, soft, nontender Extremities- no calf tenderness, +1 edema b/l (much improved), calf erythema noted c/w venous stasis dermatitis Neuro- alert, oriented, PERRL, EOMI; no facial palsy; no dysarthria Skin- warm & dry Discharge Data Allergies Allergy/AdvReac Type Severity Reaction Status Date / Time lamotrigine Allergy Mild RASH Verified 09/19/20 19:11 Sulfa (Sulfonamide Allergy Unknown Verified 09/19/20 19:11 Antibiotics) Tetracyclines Allergy Unknown Verified 09/19/20 19:11 mold Allergy Verified 09/19/20 19:11 topiramate [From Topamax] Allergy Verified 09/19/20 19:11 morphine AdvReac Intermediate SEVERE Verified 09/19/20 19:11 NAUSEA Consultations 09/19/20 19:12 ED Decision to Admit Stat 09/19/20 22:24 Consult Cardiology Routine Consult Pulmonology Routine Hospital Course (1) Acute on chronic right-sided congestive heart failure: (2) Acute on chronic heart failure with preserved ejection fraction (HFpEF): Present on admission for SOB, weakness and fall CXR on admission showed evidence of congestive failure/fluid overload. Minor ai rspace opacities most pronounced at the lung bases likely representing focal edema although an infectious/inflammatory process could appear similar ProBNP elevated 4711 COVID 19, Influenza and RSV are negative Chronic CO2 retention on ABG with PCO2 62 on admission Echo showed the right ventricular cavity appears larger than the left ventricle cavity in the apical four-chamber view suggesting significant ventricular enlargement. ejection fraction 65 to 70%. No significant change compared to the prior echocardiogram Not compliant with Cpap Received IV lasix in the ER Repeat CXR showed No change in the cardiomegaly, small bilateral pleural effusions, and pulmonary edema. Left basilar patchy densities are also unchanged. Cardiology consulted and following On Lasix 40mg IV BID and Spironolactone 12.5 mg daily Diuresed well Hold IV lasix now, d/t contraction alkalosis Pulm recommended to use acetazolamide 250 mg twice daily for the metabolic alkalosis, received several doses, d/c now Plan to continue w/ PO lasix 40 mg daily and spironolactone 12.5 mg daily Patient may take an additional 40 mg if weight increases more than 2 pounds in a 48-hour period, or 5 pounds in 1 week. Sodium restriction. Outpatient cardiology follow-up in 2 weeks. Acute on Chronic hypercapnic and hypoxic respiratory failure Obstructive sleep apnea of adult Possible COPD exacerbation Received IV solumedrol in the ER Pulmonology consulted Continue Prednisone 20mg daily for possible COPD exacerbation, finished Continued Zithromax Continue BIPA/CPAP during sleep and prn UTI Urine cx grew Ecoli Kaushik was transition to Keflex PO, finished course HTN Not on any home BP meds Continue monitor BP metoprolol started while inpt- switch to succinate 25 mg daily on dc Tobacco abuse Counseling on smoking cessation On Nicotine patch PRN DVT prophylaxis per Lovenox subcu Full code Disposition - plan to DC home w/ HH Patient's , Mr. Jamal Tracy, can be contacted at #[phone]. He was updated over the phone and plan discussed in detail. Total Time Total Time Spent Total Time Spent (In Minutes): 38 Total Time Includes: Examination of the Patient, Discharge Planning, Medication Reconciliation and Communication With Other Providers Discharge Plan Discharge Items Patient Disposition: Home - Home Health Services Reason For Visit: RESP FAILURE Discharge Diagnosis: Acute on chronic respiratory failure Acute on chronic heart failure Activity: Per Instructions section Non-emergency contact: Primary Care Provider and Professor Of Journalism Call non-emergency contact if: you have any medication questions and your symptoms worsen Follow-up/Referrals: Alex Meza MD [Primary Care Provider] - (Date & Time 10/01/2020 2:40 PM Provider Alex Meza MD Department Family Practice [facility] ) Cristino Borden MD [Outside Practitioners] - (Date & Time 09/30/2020 3:20 PM Provider Cristino Borden MD Department Pulmonary Medicine, [facility] ) Diet: Carb Consistent or DM2, Heart Healthy and Low Sodium (2gm) Fluids: 1800ml (7 cups) Addtl Attending Provider Instructions: Follow up with your primary care doctor, the appointment was scheduled for you. You will also need to follow up with your mr teacher. Make sure to weigh yourself daily and keep a record of your weight. Take furosemide 40 mg daily, you can take an additional 40 mg if weight increases more than 2 pounds in a 48-hour period, or 5 pounds in 1 week. Take spironolactone, 12.5 mg daily. Sodium restriction, and fluid restriction in your diet is also advised. Use Anoro inhaler, prescription was sent to your pharmacy. It is important that you use your CPAP machine at night. It is important that you reposition yourself frequently and use a cushion when sitting in the chair. Addtl Service Car Driver Provider Instructions: Call your Primary Care doctor if any of the following symptoms or problems start or get worse: * Shortness of breath or difficulty breathing * Wake up at night short of breath * Chest pain * Cough * Swelling of your hands, feet, or legs * More fatigued or tired with your normal activity * Palpitations - sudden fast heart beats WEIGHT * Weigh yourself every morning after using the bathroom. * Use the same scale. * Wear the same amount of clothing. * Write your weight down on a chart. * Call your Primary Care doctor if you gain more than 2-3 pounds in 1-2 days. MEDICATIONS * Use this discharge instruction sheet for medication instructions. * Take your medications at the time your doctor ordered. * Do not skip a dose of your medicines. * If you miss a dose of medicine, take it as soon as possible, but DO NOT DOUBLE A DOSE. * Read your medicine information when you get home. * Know all of the side effects of your medicine. If in doubt, ask your pharmacist * Call your Primary Care doctor's office if you have any side effects. * Be sure all of your doctors know what medicine and herbs you take (including cold, flu, and herbal medicine). Take the following with you to your follow-up doctor appointments: * Weight Chart * Medication List * List of questions Do not drink excessive alcohol, beer or wine. Pending Studies at Discharge: No Stand-Alone Forms: [facility], Smoking Cessation Medications and DC Order Prescriptions: New Anoro Ellipta 62.5-25 mcg/actuation Blister With Device 1 ea inhalation DAILY Qty: 14 RF: 0 spironolactone 25 mg Tablet 12.5 mg PO DAILY Qty: 30 RF: 0 nicotine 7 mg/24 hr Patch 24 Hour 7 mg transdermal QAM Qty: 14 RF: 0 metoprolol succinate 25 mg tablet extended release 24 hr 25 mg PO DAILY Qty: 30 RF: 0 furosemide 40 mg tablet 40 mg PO DAILY Qty: 10 RF: 0 Continued insulin aspart U-100 100 unit/mL (3 mL) insulin pen 50 unit subcut DAILY 90 Days Qty: 45 RF: 3 insulin glargine 100 unit/mL (3 mL) insulin pen 25 unit subcut DAILY Qty: 30 RF: 3 (DME) CPAP Supplies Misc See Rx Instructions .ROUTE .MEDSUPPLY Qty: 1 RF: 0 (DME) Portable Oxygen Misc See Rx Instructions .ROUTE .MEDSUPPLY Qty: 1 RF: 0 glucagon HCl 1 mg recon soln 1 mg subcut DIRECTED PRN (Reason: severe hypoglycemia) Qty: 1 RF: 0 omeprazole 20 mg tablet,delayed release (DR/EC) 20 mg PO BID RF: 0 (DME) Oxygen Home Liters Per Minute See Rx Instructions .ROUTE .MEDSUPPLY Qty: 1 RF: 0 (DME) Oxygen Home Liters Per Minute See Rx Instructions .ROUTE .MEDSUPPLY Qty: 1 RF: 0 (DME) Precision Xtra Test Strip See Rx Instructions .ROUTE .MEDSUPPLY Qty: 10 RF: 0 rosuvastatin 10 mg tablet 10 mg PO DAILY RF: 0 amitriptyline 100 mg tablet 100 mg PO HS RF: 0 Discharge Orders: Discharge Order (Routine); Ordered 09/26/20 Ordered By: Prsoper Elizabeth Admission Data Admit Date/Time: 09/19/20 19:53 Attending Provider: Prosper Elizabeth Admit Provider: Benito Vu Primary Care Provider: Alex Meza Other Providers: Benito Vu ; Guido Del Valle ; Sarthak Booth ; Ruel Solano ; Fredy Gonzales ; Tay Bullock ; Garrett Byrne ; Apurva Linder ; Emily Downey ; Ludwin Pina ; Elias Portillo ; Jhonatan Tao ; Adriana Ervin ; Obed Giron ; Benito Bazan ; Brenna Duran ; Harrison Larry ; Warren Akins ; Yaneli Bolden ; [facility] ; Penny Lugo
== END 2020-09-26 14:50 | disposition home health service (06) | DRG 291 ==
LOC: ED 16:43 → SUATTDRO 19:53 → 2S 19:53